=== PATIENT | female | born 1955 | race Caucasian/White ===

== ENCOUNTER → 2017-09-19 12:40 | Outpatient (CLI) | payer OTHER, SELFPAY | PROVIDERS: Family Provider Family Medicine; PCP Family Medicine; Visit Provider Family Medicine | DX: J02.9 Acute pharyngitis, unspecified (principal) | CPT/HCPCS: 87070 ==

== ENCOUNTER → 2017-09-28 15:55 | Outpatient (CLI) | payer OTHER, SELFPAY | PROVIDERS: Family Provider Family Medicine; PCP Family Medicine; Visit Provider Otolaryngology Otolaryngology/Facial Plastic Surgery | DX: J02.9 Acute pharyngitis, unspecified (principal) | CPT/HCPCS: 87070; 87077 ==

== ENCOUNTER → 2017-10-03 11:50 | Outpatient (CLI) | payer OTHER, SELFPAY ==
[2017-10-03 13:58] LABS: Absolute Lymphocyte Count 2.49 X10^3/ul (0.83-4.51); Absolute Neutrophil Count 3.7 X10^3/uL (2.0-7.7); Basophil# 0.05 X10^3/uL; Basophil% 0.6 % (0-1); Eosinophils% 4.9 % (0-5); Hematocrit 41.2 % (37-47); Hemoglobin 13.4 g/dl (12.0-15.0); Lymphocyte # 2.49 X10^3/ul (4.0); Lymphocyte % 30.4 % (19-41); Mean Corp Hgb Conc 32.5 g/gl (32-36); Mean Corpuscular Volume 92.4 fL (81-99); Mean Platelet Vol. 10.3 fl (6.2-12.0); Monocyte# 1.48 X10^3/uL; Monocyte% 18.1 % (0-10); Neutrophil # 3.73 X10^3/uL (2.7-7.7); Neutrophil % 45.6 % (47-70); Platelet Count 334 K/mm3 (150-450); RBC Distribution Width CV 14.1 % (11.6-14.6); RBC Distribution Width SD 46.4 fl (35.1-43.9); Red Blood Count 4.46 M/mm3 (4.2-5.4); White Blood Count 8.2 K/mm3 (4.4-11.0)
[2017-10-03 14:01] LABS: Erythrocyte Sedimentation Rate 14 mm/hr (0-30)
[2017-10-03 14:02] LABS: POSITIVE COUNT NO; POSITIVE DIFFERENTIAL NO; POSITIVE MORPHOLOGY NO
[2017-10-03 14:04] LABS: ALB/GLOB Ratio 0.8 RATIO (0.9-2.4); AST(SGOT) 20 U/L (15-37); Alanine Aminotransfer ALT/SGPT 33 U/L (13-56); Albumin, Serum 3.1 g/dL (3.2-5.0); Alkaline Phosphatase 110 U/L (45-117); Anion Gap 7 (5-15); BUN 9 mg/dL (7-18); BUN/Creat Ratio 9.4 RATIO (10-20); Calcium,Total 8.1 mg/dL (8.5-10.1); Chloride 106 mmol/L (98-107); Creatinine, Serum 0.95 mg/dL (0.55-1.02); EST Glomerular Filtration Rate 63 mL/min (>60); Est Glom Filt Rate - Afr Amer 76 mL/min (>60); Globulin 3.9 g/dL (2.2-4.2); Glucose 80 mg/dL (74-106); Potassium 3.5 mmol/L (3.5-5.1); Sodium Level 139 mmol/L (136-145)
== END ==
PROVIDERS: Visit Provider Family Medicine
DX: J02.9 Acute pharyngitis, unspecified (principal)
CPT/HCPCS: 36415; 80053; 85025; 85652

== ENCOUNTER → 2017-10-05 10:16 | Outpatient (CLI) | payer OTHER, SELFPAY ==
[2017-10-05 11:28] LABS: Erythrocyte Sedimentation Rate 6 mm/hr (0-30)
== END ==
PROVIDERS: Family Provider Family Medicine; PCP Family Medicine; Visit Provider Psychiatry & Neurology Neurology
DX: R51 Headache (principal)
CPT/HCPCS: 36415; 85652

== ENCOUNTER → 2017-10-13 07:18 | Outpatient (CLI) | payer OTHER, SELFPAY ==
--- NOTE | 2017-10-13 07:35 | MRI_ITS ---
STUDY: MRI BRAIN WITHOUT CONTRAST REASON FOR EXAM: Female, 62 years old. HEADACHES INCREASING FREQUENCY. HEADACHES INCREASING FREQUENCY. TECHNIQUE: Standardized multiplanar fat and water weighted pulse sequences were obtained. COMPARISON: None. FINDINGS: Normal size of the ventricles and extra-axial spaces for the patient's age. There are a limited number of small white matter hyperintensities, distributed throughout the deep white matter tracts of the cerebral hemispheres, consistent with mild chronic white matter ischemic changes. Normal bilateral basal ganglia. Normal thalami. There is no extra-axial fluid accumulation. Normal flow voids within the major intracranial circulation suggesting patency by spin echo criteria. Normal sella turcica, pituitary gland, infundibular stalk, optic chiasm and hypothalamus. Normal tectal plate and pineal gland. Normal midbrain, cammy and medulla. Normal cerebellum. Normal basal cisterns. Normal bilateral temporal bones. Normal bilateral internal auditory canals. No demonstrated orbital abnormality, within the constraints of a routine brain study. There is mucoperiosteal inflammatory disease of the paranasal sinuses consistent with moderate chronic sinusitis. Normal calvarium and skull base. Normal visualized soft tissue structures. Normal visualized upper cervical spine. MRI/Brain without Contrast IMPRESSION: No acute intracranial abnormality. Moderate chronic paranasal sinus disease. Electronically Signed: Abdoulaye Gibson MD at 8:18 EDT Tel , Service support ,
== END ==
PROVIDERS: Family Provider Family Medicine; PCP Family Medicine; Visit Provider Psychiatry & Neurology Neurology
DX: R51 Headache (principal)
CPT/HCPCS: 70551

== ENCOUNTER → 2017-11-25 11:40 | Outpatient (CLI) | payer OTHER, SELFPAY ==
[2017-11-25 14:39] LABS: Absolute Lymphocyte Count 2.93 X10^3/ul (0.83-4.51); Absolute Neutrophil Count 4.2 X10^3/uL (2.0-7.7); Basophil# 0.08 X10^3/uL; Basophil% 0.9 % (0-1); Eosinophil# 0.78 X10^3/uL; Eosinophils% 8.6 % (0-5); Hematocrit 38.9 % (37-47); Hemoglobin 12.9 g/dl (12.0-15.0); Lymphocyte # 2.93 X10^3/ul (4.0); Lymphocyte % 32.2 % (19-41); Mean Corp Hgb Conc 33.2 g/gl (32-36); Mean Corpuscular Hgb 30.4 pg (27.0-32.0); Mean Corpuscular Volume 91.7 fL (81-99); Mean Platelet Vol. 10.8 fl (6.2-12.0); Monocyte# 1.04 X10^3/uL; Monocyte% 11.4 % (0-10); Neutrophil # 4.24 X10^3/uL (2.7-7.7); Neutrophil % 46.7 % (47-70); Platelet Count 402 K/mm3 (150-450); RBC Distribution Width CV 13.4 % (11.6-14.6); RBC Distribution Width SD 44.2 fl (35.1-43.9); Red Blood Count 4.24 M/mm3 (4.2-5.4); White Blood Count 9.1 K/mm3 (4.4-11.0)
[2017-11-25 14:43] LABS: POSITIVE COUNT NO; POSITIVE DIFFERENTIAL NO; POSITIVE MORPHOLOGY NO
[2017-11-25 15:02] LABS: ALB/GLOB Ratio 0.9 RATIO (0.9-2.4); AST(SGOT) 30 U/L (15-37); Alanine Aminotransfer ALT/SGPT 30 U/L (13-56); Albumin, Serum 3.7 g/dL (3.2-5.0); Alkaline Phosphatase 115 U/L (45-117); Anion Gap 10 (5-15); BUN 19 mg/dL (7-18); BUN/Creat Ratio 15.3 RATIO (10-20); Calcium,Total 9.2 mg/dL (8.5-10.1); Chloride 101 mmol/L (98-107); Creatinine, Serum 1.24 mg/dL (0.55-1.02); EST Glomerular Filtration Rate 46 mL/min (>60); Est Glom Filt Rate - Afr Amer 56 mL/min (>60); Globulin 4.1 g/dL (2.2-4.2); Glucose 94 mg/dL (74-106); Potassium 3.5 mmol/L (3.5-5.1); Protein, Total 7.8 g/dL (6.4-8.2); Sodium Level 136 mmol/L (136-145); T4 Free Direct 1.14 ng/dL (0.76-1.46); Thyroid Stim Hormone (TSH) 1.96 uIU/mL (0.358-3.74)
== END ==
PROVIDERS: Family Provider Family Medicine; PCP Family Medicine; Visit Provider Family Medicine
DX: I10 Essential (primary) hypertension (principal); E03.9 Hypothyroidism, unspecified; G43.909 Migraine, unspecified, not intractable, without status migrainosus
CPT/HCPCS: 36415; 80053; 84439; 84443; 85025

== ENCOUNTER → 2017-12-06 08:21 | Outpatient (CLI) | payer OTHER, SELFPAY ==
[2017-12-08 16:09] LABS: Alternaria alternata <0.10 kU/L (Class 0); Bermuda Grass <0.10 kU/L (Class 0); Bluegrass, Kentucky <0.10 kU/L (Class 0); Cat Hair/Dander, Standard <0.10 kU/L (Class 0); D farinae Mite <0.10 kU/L (Class 0); D pteronyssinus <0.10 kU/L (Class 0); Dog Epithelia <0.10 kU/L (Class 0); Elm, American White <0.10 kU/L (Class 0); Oak, White <0.10 kU/L (Class 0); Plantain, English <0.10 kU/L (Class 0); Ragweed, Short/Common <0.10 kU/L (Class 0)
[2017-12-09 12:41] LABS: Mouse Urine <0.10 kU/L (Class 0)
[2017-12-09 20:08] LABS: Aspirgillus flavus Negative (Neg:<1:1); Aspirgillus fumigatus Negative (Neg:<1:1); Aspirgillus niger Negative (Neg:<1:1)
[2017-12-10 14:02] LABS: Immunoglobulin E 35 IU/mL (0-100)
== END ==
PROVIDERS: Family Provider Family Medicine; PCP Family Medicine; Visit Provider Nurse Practitioner Acute Care
DX: J45.40 Moderate persistent asthma, uncomplicated (principal)
CPT/HCPCS: 82785; 86003; 86606

== ENCOUNTER → 2018-02-01 15:45 | Outpatient (CLI) | payer OTHER, SELFPAY ==
[2018-02-01 18:02] LABS: Absolute Lymphocyte Count 3.14 X10^3/ul (0.83-4.51); Absolute Neutrophil Count 5.1 X10^3/uL (2.0-7.7); Basophil# 0.07 X10^3/uL; Basophil% 0.7 % (0-1); Eosinophil# 0.48 X10^3/uL; Eosinophils% 4.9 % (0-5); Hematocrit 38.2 % (37-47); Hemoglobin 12.7 g/dl (12.0-15.0); Lymphocyte # 3.14 X10^3/ul (4.0); Lymphocyte % 32.3 % (19-41); Mean Corp Hgb Conc 33.2 g/gl (32-36); Mean Corpuscular Hgb 30.8 pg (27.0-32.0); Mean Corpuscular Volume 92.7 fL (81-99); Mean Platelet Vol. 10.6 fl (6.2-12.0); Monocyte% 9.3 % (0-10); Neutrophil # 5.11 X10^3/uL (2.7-7.7); Neutrophil % 52.6 % (47-70); POSITIVE COUNT NO; POSITIVE DIFFERENTIAL NO; POSITIVE MORPHOLOGY NO; Platelet Count 416 K/mm3 (150-450); RBC Distribution Width CV 12.7 % (11.6-14.6); RBC Distribution Width SD 41.9 fl (35.1-43.9); Red Blood Count 4.12 M/mm3 (4.2-5.4); White Blood Count 9.7 K/mm3 (4.4-11.0)
[2018-02-01 19:08] LABS: AST(SGOT) 26 U/L (15-37); Alanine Aminotransfer ALT/SGPT 31 U/L (13-56); Alkaline Phosphatase 122 U/L (45-117); Anion Gap 8 (5-15); BUN 17 mg/dL (7-18); BUN/Creat Ratio 15.9 RATIO (10-20); Calcium,Total 9.5 mg/dL (8.5-10.1); Chloride 101 mmol/L (98-107); Creatinine, Serum 1.07 mg/dL (0.55-1.02); EST Glomerular Filtration Rate 55 mL/min (>60); Est Glom Filt Rate - Afr Amer 66 mL/min (>60); Free T3 2.2 pg/mL (2.18-3.98); Globulin 3.9 g/dL (2.2-4.2); Glucose 87 mg/dL (74-106); Potassium 3.5 mmol/L (3.5-5.1); Protein, Total 7.9 g/dL (6.4-8.2); Sodium Level 137 mmol/L (136-145); Thyroid Stim Hormone (TSH) 2.23 uIU/mL (0.358-3.74)
[2018-02-07 14:23] LABS: T4 Free Direct 1.13 ng/dL (0.76-1.46)
== END ==
PROVIDERS: Family Provider Family Medicine; PCP Family Medicine; Visit Provider Family Medicine
DX: I10 Essential (primary) hypertension (principal); E03.9 Hypothyroidism, unspecified; G43.909 Migraine, unspecified, not intractable, without status migrainosus
CPT/HCPCS: 36415; 80053; 84439; 84443; 84481; 85025

== ENCOUNTER → 2018-05-22 08:05 | Outpatient (CLI) | payer OTHER, SELFPAY ==
[2018-05-22 11:55] LABS: Anion Gap 12 (5-15); BUN 11 mg/dL (7-18); BUN/Creat Ratio 11.4 RATIO (10-20); Calcium,Total 9.3 mg/dL (8.5-10.1); Chloride 101 mmol/L (98-107); Creatinine, Serum 0.97 mg/dL (0.55-1.02); EST Glomerular Filtration Rate 61 mL/min (>60); Est Glom Filt Rate - Afr Amer 74 mL/min (>60); Glucose 83 mg/dL (74-106); Potassium 3.2 mmol/L (3.5-5.1); Sodium Level 138 mmol/L (136-145); T4 Free Direct 1.64 ng/dL (0.76-1.46); Thyroid Stim Hormone (TSH) 1.59 uIU/mL (0.358-3.74)
== END ==
PROVIDERS: Family Provider Family Medicine; PCP Family Medicine; Visit Provider Family Medicine
DX: I10 Essential (primary) hypertension (principal)
CPT/HCPCS: 36415; 80048; 84439; 84443

== ENCOUNTER → 2018-06-19 11:42 | Outpatient (CLI) | payer OTHER, SELFPAY ==
[2018-04-05 14:13] VITALS: BMI 35.9
[2018-06-19 13:50] LABS: Free T3 2.6 pg/mL (2.18-3.98); T4 Total, Thyroxin 11.7 ug/dL (4.8-13.9); Thyroid Stim Hormone (TSH) 0.16 uIU/mL (0.358-3.74)
== END ==
PROVIDERS: Family Provider Family Medicine; PCP Family Medicine; Visit Provider Family Medicine
DX: E03.9 Hypothyroidism, unspecified (principal)
CPT/HCPCS: 36415; 84436; 84443; 84481

== ENCOUNTER → 2018-10-19 | Outpatient (CLI) | payer OTHER, SELFPAY ==
[2018-04-05 14:13] VITALS: BMI 35.9
[2018-10-19 10:50] LABS: Anion Gap 6 (5-15); BUN 18 mg/dL (7-18); BUN/Creat Ratio 23.1 RATIO (10-20); Calcium,Total 9.6 mg/dL (8.5-10.1); Chloride 102 mmol/L (98-107); Creatinine, Serum 0.78 mg/dL (0.55-1.02); EST Glomerular Filtration Rate 79 mL/min (>60); Est Glom Filt Rate - Afr Amer 96 mL/min (>60); Free T3 2.5 pg/mL (2.18-3.98); Glucose 90 mg/dL (74-106); Magnesium 2.2 mg/dL (1.6-2.6); Potassium 3.9 mmol/L (3.5-5.1); Sodium Level 138 mmol/L (136-145); T4 Free Direct 1.08 ng/dL (0.76-1.46); Thyroid Stim Hormone (TSH) 1.59 uIU/mL (0.358-3.74)
== END | disposition home or self-care (01) ==
LOC: MFPLAB 09:11
PROVIDERS: Family Provider Family Medicine; PCP Family Medicine; Referring Provider Family Medicine; Visit Provider Family Medicine
DX: E03.9 Hypothyroidism, unspecified (principal); E87.6 Hypokalemia
CPT/HCPCS: 36415; 80048; 83735; 84439; 84443; 84481

== ENCOUNTER 2018-10-24 05:58 | Day surgery (SDC) | payer OTHER, SELFPAY ==
[2018-04-05 14:13] VITALS: BMI 35.9
[2018-10-19 14:45] LABS: Hemoglobin 12.3 g/dl (12.0-15.0); Mean Corp Hgb Conc 33.2 g/gl (32-36); Mean Corpuscular Hgb 31.2 pg (27.0-32.0); Mean Corpuscular Volume 93.9 fL (81-99); Mean Platelet Vol. 10.6 fl (6.2-12.0); Platelet Count 407 K/mm3 (150-450); RBC Distribution Width CV 13.9 % (11.6-14.6); RBC Distribution Width SD 47.7 fl (35.1-43.9); Red Blood Count 3.94 M/mm3 (4.2-5.4); White Blood Count 9.3 K/mm3 (4.4-11.0)
--- NOTE | 2018-10-19 14:49 | EKG12_ITS ---
Test Reason : PREOP Blood Pressure : / mmHG Vent. Rate : 079 BPM Atrial Rate : 079 BPM P-R Int : 128 ms QRS Dur : 086 ms QT Int : 428 ms P-R-T Axes : 061 042 040 degrees QTc Int : 490 ms Normal sinus rhythm Prolonged QT Abnormal ECG Confirmed by CHANTEL SALTER, YURI ([id number]), film editor supervisor EDWARD GAGNON ([id number]) on 10/23/2018 4:33:37 PM Referred By: Shyann Schulz Confirmed By:YURI GOLDEN MD
[2018-10-19 14:54] LABS: Scan Indicated on CBC? Y/N NO
[2018-10-24] VITALS (8 sets, daily range): BP systolic 84–132; BP diastolic 55–70; PULSE 75–90; RESP 16–18; TEMP 36.7–36.9; O2SAT 96–100; BMI 26.1
--- NOTE | 2018-10-24 07:35 | RAD_ITS ---
STUDY: X-RAY - LEFT FOOT CLINICAL: Female, 63 years old. Arthroplasty of the fourth and fifth toes. TECHNIQUE: 4 intraoperative view(s) of the foot. COMPARISON: None. FINDINGS: Intraoperative images shows evidence of pinning of the fourth toe. RAD/Foot min 3 Views IMPRESSION: Pinning of the fourth toe. Electronically Signed: Jose Antonio Kumar, at 14:06 EDT , Service support ,
[2018-10-24] MEDS: Bupivacaine Mpf 0.5% 30 ML VIAL (07:48)
--- NOTE | 2018-10-24 08:43 | RAD_ITS ---
STUDY: X-RAY - LEFT FOOT CLINICAL: Female, 63 years old. Postop TECHNIQUE: 3 view(s) of the foot. COMPARISON: None. FINDINGS: Normal talus, calcaneus, and tarsal bones. Normal visualized subtalar, talonavicular, calcaneocuboid, tarsal and tarsometatarsal articulations. Normal metatarsi. Normal metatarsophalangeal joint of the great toe. Normal tibial and fibular sesamoid bones. Normal interphalangeal joint of the great toe. Normal phalanges of the great toe. Normal second through fifth metatarsophalangeal joints. Status post pinning of the fourth toe. The soft tissue structures are unremarkable. RAD/Foot min 3 Views IMPRESSION: Status post pinning of the fourth toe. Electronically Signed: Taye Burgos DO at 23:55 EDT Tel [phone], Service support ,
--- NOTE | 2018-10-24 08:48 | DCINST_ITS ---
Discharge Activity: May Not Drive, May not drive while taking narcotic pain medications., May Not Shower, Use Walker, Use Crutches Weight Bearing Status: Partial weight bearing - heel weightbearing in surgical shoe, crutches/walker as neededfor balance Keep extremity elevated above heart level: Operative Extremity Call your doctor if your incision/area has: Sudden Increased Bleeding Call your doctor if you observe: Fever of 101 or Higher, Shortness of breath, Dizziness, Chest pain, Increased palpitations (irregular heartbeat), Calf discomfort, Uncontrolled pain Cleanse incision/area with: Keep Dressing Clean & Dry Allergies/Adverse Reactions: Allergies clarithromycin [From Biaxin] Allergy (Verified 10/19/18 13:09) Unknown Penicillins [PCN] Allergy (Verified 10/19/18 13:09) Unknown sulfacetamide Allergy (Verified 10/19/18 13:09) Unknown cefuroxime [From Ceftin] Adverse Reaction (Mild, Verified 10/19/18 13:09) Nausea & Diarrhea Medications to take at Discharge Ibuprofen 200 mg PO DAILY PRN 05/27/17 Losartan Potassium 25 mg PO DAILY 05/27/17 Montelukast [Singulair] 10 mg PO DAILY 05/27/17 amitriptyline 25 mg tablet 25 mg PO QHS 30 Days #30 tab 11/08/17 bisoprolol fumarate 5 mg tablet 5 mg PO QDAY 30 Days #30 tab 11/08/17 levothyroxine 100 mcg tablet 100 mcg PO QDAY 90 Days #90 tab 11/08/17 liothyronine 5 mcg tablet 5 mcg PO QDAY 11/08/17 magnesium oxide 400 mg (241.3 mg magnesium) tablet 400 mg PO DAILY 11/08/17 Fluticasone 0.05% [Flonase Nasal [place]] 2 spray INTRANASAL QDAY PRN 10/19/18 Hydrochlorothiazide [Hctz] 12.5 mg PO QDAY 10/19/18 Acetaminophen/Codeine #3 [Tylenol#3] 1 tab PO Q4H PRN PRN 7 Days #30 tab 10/24/18 The following prescriptions were given: Acetaminophen/Codeine #3 [Tylenol#3] 1 tab PO Q4H PRN PRN 7 Days #30 tab PRN Reason: Pain Orders to be completed after discharge: 12 Lead EKG [[facility]] Time Frame: 10/19/18, Facility: [facility], Location: Cardiovascular Services CBC-Complete Blood Cnt No Diff Time Frame: 10/19/18, Location: Laboratory Primary Care Physician: Elias Epps MD [Primary Care Provider] - Test Results: Test results from this visit will be discussed in further detail at your follow- up appointment, if applicable. Please Follow Up With: Shyann Schulz DPM - Please follow up at your previously scheduled post operative appointment. Proposed Discharge Date: 10/24/18
--- NOTE | 2018-10-24 08:48 | PCM.OPRPT ---
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 Patient has failed outpatient conservative therapies and presents today for surgical intervention. All risks, complications, and alternatives were discussed with the patient, and the patient signed an informed consent. No guarantees were given. Procedure: On 10/24/2018, Melissa Burns was visually and verbally identified in the preoperative holding area. The consent form was again reviewed with the patient, as were all risks, complications, and alternatives and the patient wished to proceed with the proposed surgery. The left foot was marked as the correct operative extremity. The patient was brought to the operating room and placed on the operating room table in the normal SUPINE position. After induction by anesthesia, a surgical time out was performed and all present were in agreement. a pneumatic midcalf tourniquet was then placed. At this time the left lower extremity was prepped and draped in the usual sterile fashion. after exsanguination with an esmarch the tourniquet was inflated to 250 mmHg. a total of 16 cc of 0.5% marcaine plain was injected at the surgical sites. At this time attention was directed to the left 4th digit, a longitudinal incision was made over the PIPJ joint using a #15 blade.The incision was bluntly carried deep through the subcutaneous tissues with careful attention paid to all bleeders, which were clamped and tied or bovied as necessary. All vital neurovascular structures were retracted. The extensor tendon was identified and a transverse incision was made just distal to the PIPJ. Using bone cutter the articular surface of the 4th proximal phalanx was resected in a table top fashion. The cartilage of the base of the middle phalanx was then removed using ronguers. The incision was flushed with normal sterile saline. A 0.045 k wire was then placed retrograde from the base of the middle phalanx. The PIPJ was aligned and the k wire was advanced proximally past the PIPJ. Intraoperative fluoroscopy was used to confirm positioning and placement. Attention was then turned to the 5th digit, using a fresh #15 blade an oblique ellipse was made from qwosmft-mksyzhss-rksusnu to rgmafk-[id number]-vtrcoy over the PIPJ. The incision was bluntly carried deep through the subcutaneous tissues with careful attention paid to all bleeders, which were clamped and tied or bovied as necessary. All vital neurovascular structures were retracted. The extensor tendon was identified and a transverse incision was made just distal to the PIPJ. Using bone cutter the articular surface of the 5th proximal phalanx was resected in a table top fashion. A rasp was used to contour the lateral border of the base of the middle phalanx. The incision was flushed with copious amounts of normal sterile saline. The extensor tendons of each digit were re-approximated with sutured with 3.0 vicryl, subcutaneous tissue was closed with 3.0 vicryl and skin was closed with 3.0 prolene. adaptic and dry sterile dressings were applied to the incisions. casting padding and light compressive gus were applied with a surgical shoe. A pin cap was placed over the k wire end. Total tourniquet time was 40 minutes with immediate capillary refill noted to all digits upon deflation. The patient tolerated the procedure and anesthesia well. The patient was then transported to the postanesthesia care unit by a member of the anesthesia team and myself with all vital signs stable and neurovascular status of the left lower extremity equal to pre-operative levels. At the end of the case all sponge, needle and instrument counts were found to be correct. Grafts/Implants Used: 0.045 k wire - Complications none - Admit VTE Documentation VTE Present on Admission: No VTE Mechan Device Prophylaxis: SCD's, Knee High OLIVE Hose VTE Pharm Prophylaxis ordered?: Yes
== END 2018-10-24 10:05 | disposition home or self-care (01) ==
LOC: SDC 05:58 → AC 05:59
PROVIDERS: Family Provider Family Medicine; PCP Family Medicine; Referring Provider Podiatrist Foot & Ankle Surgery; Visit Provider Podiatrist Foot & Ankle Surgery
PROC: (CPT 26860; principal; 2018-10-24 07:15)
DX: M20.5X2 Other deformities of toe(s) (acquired), left foot (principal); L84 Corns and callosities; I10 Essential (primary) hypertension; E07.9 Disorder of thyroid, unspecified; J45.909 Unspecified asthma, uncomplicated; M19.90 Unspecified osteoarthritis, unspecified site; Z79.899 Other long term (current) drug therapy
CPT/HCPCS: 01480; 28285 ×2; 73630; 76000; 85027; 93005; J7120

== ENCOUNTER → 2019-04-10 | Outpatient (CLI) | payer OTHER, SELFPAY ==
[2018-11-09 14:38] VITALS: BMI 26.4
[2019-04-10 12:37] LABS: Absolute Lymphocyte Count 2.73 X10^3/uL (0.83-4.51); Absolute Neutrophil Count 3.9 X10^3/uL (2.0-7.7); Basophil% 1.2 % (0-1); Eosinophil# 0.91 X10^3/uL; Eosinophils% 10.9 % (0-5); Hematocrit 41.6 % (37-47); Hemoglobin 13.3 g/dL (12.0-15.0); Lymphocyte # 2.73 X10^3/ul (4.0); Lymphocyte % 32.8 % (19-41); Mean Corpuscular Hgb 30.3 pg (27.0-32.0); Mean Corpuscular Volume 94.8 fL (81-99); Mean Platelet Vol. 10.4 fl (6.2-12.0); Monocyte% 8.4 % (0-10); NRBC Flagged by Analyzer 0 % (0-5); Neutrophil # 3.88 X10^3/uL (2.7-7.7); Neutrophil % 46.6 % (47-70); Platelet Count 387 K/mm3 (150-450); RBC Distribution Width CV 12.8 % (11.6-14.6); RBC Distribution Width SD 44.4 fl (35.1-43.9); Red Blood Count 4.39 M/mm3 (4.2-5.4); White Blood Count 8.3 K/mm3 (4.4-11.0)
[2019-04-10 12:53] LABS: Vitamin D,25 Hydroxy 12.7 ng/mL (29.95-100.01)
[2019-04-10 12:57] LABS: ALB/GLOB Ratio 1.1 RATIO (0.9-2.4); AST(SGOT) 26 U/L (15-37); Alanine Aminotransfer ALT/SGPT 32 U/L (13-56); Albumin, Serum 3.8 g/dL (3.2-5.0); Alkaline Phosphatase 111 U/L (45-117); Anion Gap 8 (5-15); BUN 12 mg/dL (7-18); BUN/Creat Ratio 12.7 RATIO (10-20); Calcium,Total 9.4 mg/dL (8.5-10.1); Chloride 104 mmol/L (98-107); Cholesterol 191 mg/dL (200); Creatinine, Serum 0.94 mg/dL (0.55-1.02); EST Glomerular Filtration Rate 63 mL/min (>60); Est Glom Filt Rate - Afr Amer 77 mL/min (>60); Globulin 3.5 g/dL (2.2-4.2); Glucose 79 mg/dL (74-106); High Density Lipoprotein 73 mg/dL; Potassium 3.9 mmol/L (3.5-5.1); Protein, Total 7.3 g/dL (6.4-8.2); Sodium Level 141 mmol/L (136-145); T4 Free Direct 1.13 ng/dL (0.76-1.46); Thyroid Stim Hormone (TSH) 0.87 uIU/mL (0.358-3.74); Triglycerides 53 mg/dL; Very Low Density Lipoprotein 11 mg/dL (5-40)
== END | disposition home or self-care (01) ==
LOC: MFPLAB 09:43
PROVIDERS: Family Provider Family Medicine; PCP Family Medicine; Referring Provider Family Medicine; Visit Provider Family Medicine
DX: E03.9 Hypothyroidism, unspecified (principal); R00.0 Tachycardia, unspecified; I10 Essential (primary) hypertension; Z13.220 Encounter for screening for lipoid disorders
CPT/HCPCS: 36415; 80053; 80061; 82306; 84439; 84443; 85025

== ENCOUNTER → 2019-06-13 11:22 | Outpatient (CLI) | payer OTHER, SELFPAY ==
[2018-11-09 14:38] VITALS: BMI 26.4
--- NOTE | 2019-06-13 11:25 | BI_ITS ---
MAMMOGRAPHY - BILATERAL SCREENING REASON FOR EXAM: Female, 64 years old. Routine annual screening examination. PERTINENT HISTORY: Non-contributory. TECHNIQUE: Digital bilateral breast imelda (3D mammographic acquisition) in the CC and MLO projections. 2-D mediolateral oblique (MLO) and craniocaudad (CC) views of both breasts were obtained. CAD: Full Field Digital Mammography with Computer Added Detection was performed. COMPARISON: Comparison is made with prior study dated June 24, 2015 and February 26, 2014. FINDINGS: Breast Composition: The breasts are heterogeneously dense, which may obscure small masses. There are no dominant masses or suspicious calcifications. No other significant abnormalities are identified. There has been no significant change since the prior study. BI/SCREEN MAMM (CAD) W/IMELDA BILAT IMPRESSION: Stable bilateral screening mammogram. Yearly follow-up mammogram recommended. (A) ASSESSMENT CATEGORY: BIRADS Category 1: Negative. A letter regarding these results will be sent to the patient by the facility within 30 days. Approximately 10% of breast cancers are not detected by mammography. A normal mammogram should not delay biopsy of a clinically suspicious abnormality. [id number] Electronically Signed: Jose Antonio Kumar, at 12:31 EST , Service support ,
--- NOTE | 2019-06-13 11:26 | BD_ITS ---
STUDY: DUAL ENERGY X-RAY ABSORPTIOMETRY / DXA REASON FOR EXAM: Female, 64 years old. The patient is postmenopausal. Loss of height. TECHNIQUE: Bone Mineral Density (BMD) measurements of lumbar spine and bilateral hips were obtained. COMPARISON: Comparison is made with prior study dated June 24, 2015. FINDINGS: Lumbar Spine (L1-L4): g/cm2 (1.020) / T-score (-1.2) / Z-score (0.4) Findings are suggestive of osteopenia with a low fracture risk. Left Femur Total: g/cm2 (0.887) / T-score (-1.0) / Z-score (0.3) Left Femoral Neck: g/cm2 (0.883) / T-score (-1.4) / Z-score (0.1) Right Femur Total: g/cm2 (0.904) / T-score (-0.8) / Z-score (0.4) Right Femoral Neck: g/cm2 (0.864) / T-score (-1.3) / Z-score (0.2) The T-Scores on the most recent prior examination were: Lumbar Spine (L1-L4): There has been worsening of bone density since the previous examination. Left Femur Total: which represents a worsening of 4.6%. Right Femur Total: which represents a worsening of 3.1%. BD/Dexa Bone Density Study IMPRESSION: The patient is considered osteopenic as outlined below according to [place] Organization (WHO) criteria with a low fracture risk. There has been worsening of bone density since the previous examination. Reference Information: The T-score is the number of standard deviations above or below the standard which is normal for young adults at their peak bone mineral density. The World Health Organization (WHO) interprets the T-scores as follows: Above -1 Normal bone density Between -1 and -2.5 Osteopenia Equal to / or below -2.5 Osteoporosis As a practical clinical guideline, osteopenia may be graded as follows: Mild -1 through -1.5 Moderate -1.6 through -2.0 Severe -2.1 through -2.4 The Z-score is the number of standard deviations above or below age-matched controls. A Z-score of less than -1.5 would be considered abnormal. References: 1. NIH Osteoporosis and Related Bone Diseases http://www.osteo.org 2. International Society for Clinical Densitometry http://www.iscd.org 3. National Osteoporosis Foundation http://www.nof.org Electronically Signed: Jose Antonio Kumar, at 15:51 EST , Service support ,
== END ==
PROVIDERS: Family Provider Family Medicine; PCP Family Medicine; Referring Provider Family Medicine; Visit Provider Family Medicine
DX: Z12.31 Encounter for screening mammogram for malignant neoplasm of breast (principal); Z78.0 Asymptomatic menopausal state
CPT/HCPCS: 77063; 77067; 77080

== ENCOUNTER 2019-06-26 06:02 | Day surgery (SDC) | payer OTHER, SELFPAY ==
[2018-11-09 14:38] VITALS: BMI 26.4
[2019-06-26] VITALS (11 sets, daily range): BP systolic 79–126; BP diastolic 50–70; PULSE 89–102; RESP 16–18; TEMP 37.2–37.6; O2SAT 92–100; BMI 28.9
--- NOTE | 2019-06-26 | COLBX_PTH ---
PATIENT: BRIAN FOSTER LOC: EN U#:[id number] AGE/SX: 64/F ROOM: RE06/26/[address]: Dr. Malik Hernandez MD : 1955 BED: DIS: 06/26/2019 SPEC #: [id number] RECD: 06/26/19 13:19 STATUS: LINDA REEvette #: [id number] CORBIN: 06/26/19 00:[address]: Malik Hernandez DEPT: SURGICAL PATHOLOGY RECD BY: Giancarlo Espino ENTERED: 06/26/19 13:19 SP TYPE: COLON BX OTHR DR: Dr. Elias Epps MD Tissues: Rectum, NOS Procedures: Surgery Specimen Level IV HEADER OPERATION: Colonoscopy - open access (MOD) PRE-OP DIAGNOSIS: Screening TISSUE SUBMITTED: Rectum polyp MICROSCOPIC DIAGNOSIS Rectal polyp, biopsy: Tubular adenoma. AM:gabriel 06/27/19 MICROSCOPIC DESCRIPTION Slides are reviewed. GROSS DESCRIPTION Received in fixative is one container labeled with the patient's name and designated rectum polyp. The specimen consists of one irregular fragment of jeff soft tissue that measures 0.4 x 0.2 x 0.1 cm. A few fragments of fecal material are also noted. The entire specimen is submitted in one cassette. / SJ:gabriel 06/26/19 TC: 5 CPT: 92469
[2019-06-26] MEDS: Lactated Ringers 1,000 ML 100 ML IV (06:37)
--- NOTE | 2019-06-26 06:49 | PCM.HP.STD ---
Problem List (1) Screening for intestinal cancer Status: Acute History of Present Illness Date of Admission: 06/26/19 The patient is a 64 year old F who presents for screening colonoscopy. She denies abdominal pain or bright red blood per rectum or melena. She otherwise states that she enjoys good health. No history of DVT. No blood thinners. Past Medical History Past Medical History (Chronic Problems): Chronic Problems (Last Reviewed 04/05/18 @ 14:26 by Xena Nowak NP-C) Thyroid dysfunction (Chronic) HTN (hypertension) (Chronic) Migraine (Chronic) Seasonal allergies (Chronic) Asthma (Chronic) Cardiovascular stress test abnormal (Chronic) Medical History: Medical History (Last Reviewed 04/05/18 @ 14:26 by Xena Nowak NP-C) Pneumonia (Acute) J18.9 Bronchitis (Acute) J40 Thyroid dysfunction (Chronic) E07.9 HTN (hypertension) (Chronic) I10 Migraine (Chronic) G43.909 Non-productive cough (Acute) R05 Sinusitis (Acute) J32.9 Seasonal allergies (Chronic) J30.2 Asthma (Chronic) J45.909 Tachycardia (Acute) R00.0 Cardiovascular stress test abnormal (Chronic) R94.39 Dyspnea on exertion (Resolved) R06.09 Allergies amoxicillin [From Augmentin] Allergy (Verified 06/22/19 13:49) Unknown clarithromycin [From Biaxin] Allergy (Verified 10/19/18 13:09) Unknown clavulanic acid [From Augmentin] Allergy (Verified 06/22/19 13:49) Unknown Sulfa (Sulfonamide Antibiotics) Allergy (Verified 06/22/19 13:51) Hives sulfacetamide Allergy (Verified 10/19/18 13:09) Unknown cefuroxime [From Ceftin] Adverse Reaction (Mild, Verified 10/19/18 13:09) Nausea & Diarrhea Penicillins [PCN] Adverse Reaction (Verified 06/22/19 13:50) Nausea/Vom/Diarrhea Home Medications: Ambulatory Orders Medication Instructions Recorded Montelukast [Singulair] 10 mg PO DAILY 05/27/17 amitriptyline 25 mg tablet 25 mg PO QHS 30 Days #30 tab 11/08/17 levothyroxine 100 mcg tablet 100 mcg PO QDAY 90 Days #90 tab 11/08/17 magnesium oxide 400 mg (241.3 mg 400 mg PO DAILY 11/08/17 magnesium) tablet Fluticasone 0.05% [Flonase Nasal 2 spray INTRANASAL QDAY PRN 10/19/18 [place]] Hydrochlorothiazide [Hctz] 12.5 mg PO QDAY 10/19/18 Surgical History: Surgical History (Last Reviewed 04/05/18 @ 14:26 by Xena Nowak NP-C) sinuplasty (Resolved) H/O tubal ligation (Resolved) Z98.51 bunion surgery (Resolved) History of carpal tunnel surgery Z92.89 History of left heart catheterization Z98.890 [facility]: 05/30/2017 Smoking Status: Never smoker Tobacco Use: Non-smoker Review of Systems HEENT: Denies: Difficulty Swallowing Cardiovascular: Denies: Chest Pain Respiratory: Denies: Shortness of Breath Gastrointestinal: Denies: Abdominal Pain, Melena Endocrine: Denies: Change in Body Habitus VTE Information - Inpt Only VTE Present on Admission: No Patient Problems: Active and Suspected Problems (Last Reviewed 04/05/18 @ 14:26 by Xena Nowak NP-Alireza) Screening for intestinal cancer (Acute) - Physical Exam Vitals/I&O's: Vital Signs Temp Pulse Resp BP Pulse Ox 99.6 F H 102 H 16 123/57 H 95 06/26/19 06:31 06/26/19 06:31 06/26/19 06:31 06/26/19 06:31 06/26/19 06:31 Oxygen Delivery Method Room Air Weight: 163 lb 5.8 oz Body Mass Index (BMI) 28.9 General: Alert, Oriented x3, Cooperative, No apparent distress Oral: Moist Mucosa Neck: Supple Lungs: Clear to auscultation, Normal air movement Cardiovascular: Regular rate, Regular Rhythm Abdomen: Bowel Sounds Present, Non-Distended Extremities: No Calf Tenderness Psych/Mental Status: Normal Affect Current Medications Lactated Ringer's () 1,000 mls @ 100 mls/hr IV .Q10H KOLBY Last Admin: 06/26/19 06:37 Dose: 100 mls/hr Documented by: Assessment/Plan All Active Problems (Last Reviewed 04/05/18 @ 14:26 by Xena Nowak NP-C) Screening for intestinal cancer (Acute) PND (post-nasal drip) (Acute) sinuplasty (Resolved) H/O tubal ligation (Resolved) bunion surgery (Resolved) Pneumonia (Acute) Bronchitis (Acute) Non-productive cough (Acute) Sinusitis (Acute) Tachycardia (Acute) Dyspnea on exertion (Resolved) Plan to proceed with a screening colonoscopy today with possible biopsy or polypectomy is indicated. The patient is aware of the technique, benefits, risks, alternatives. She has had an opportunity to ask and have questions answered. She presents via our open access program today. She has not had a previous colonoscopy since age 48 Malik Hernandez M.D., F.A.C.S.
--- NOTE | 2019-06-26 07:29 | OP.COLON_ITS ---
Patient Name: Melissa Burns Procedure Date: 06/26/2019 6:50 AM Date of : 1955 Age: 64 Procedure: Colonoscopy Indications: Screening for colorectal malignant neoplasm Providers: Malik Hernandez MD Referring MD: Elias Epps Medicines: Midazolam 4 mg IV, Meperidine 100 mg IV Patient Profile: Last Colonoscopy: more than 10 years ago. Complications: No immediate complications. Procedure: Pre-Anesthesia Assessment: - Prior to the procedure, a History and Physical was performed, and patient medications and allergies were reviewed. The patient's tolerance of previous anesthesia was also reviewed. The risks and benefits of the procedure and the sedation options and risks were discussed with the patient. All questions were answered, and informed consent was obtained. Prior Anticoagulants: The patient has taken no previous anticoagulant or antiplatelet agents. ASA Grade Assessment: II - A patient with mild systemic disease. After reviewing the risks and benefits, the patient was deemed in satisfactory condition to undergo the procedure. After I obtained informed consent, the scope was passed under direct vision. Throughout the procedure, the patient's blood pressure, pulse, and oxygen saturations were monitored continuously. The colonoscope was introduced through the anus and advanced to the cecum, identified by appendiceal orifice and ileocecal valve. The colonoscopy was performed without difficulty. The patient tolerated the procedure well. The quality of the bowel preparation was adequate to identify polyps. The ileocecal valve and the appendiceal orifice were photographed. Moderate Sedation: Moderate (conscious) sedation was personally administered by the endoscopist. The following parameters were monitored: oxygen saturation, heart rate, blood pressure, and response to care. Total physician intraservice time was 15 minutes. Scope In: 7:05:02 AM Scope Withdrawal Time 0 hours 8 minutes 56 seconds Scope Out: 7:20:23 AM Total Procedure Duration Time 0 hours 15 minutes 21 seconds Findings: Hemorrhoids were found on perianal exam. A 6 mm polyp was found in the rectum. The polyp was sessile. The polyp was removed with a cold snare. Resection and retrieval were complete. Multiple diverticula were found in the sigmoid colon. The exam was otherwise without abnormality. Impression: - Hemorrhoids found on perianal exam. - One 6 mm polyp in the rectum, removed with a cold snare. Resected and retrieved. - Diverticulosis in the sigmoid colon. - The examination was otherwise normal. Recommendation: - Discharge patient to home. - Resume previous diet. - Continue present medications. - Telephone my office for pathology results in 1 week. - Repeat colonoscopy is recommended for surveillance 5 years. The colonoscopy date will be determined after pathology results from today's exam become available for review. Procedure Code(s): --- Professional --- 48980, Colonoscopy, flexible; with removal of tumor(s), polyp(s), or other lesion(s) by snare technique 31572, 59, Moderate sedation services provided by the same physician or other qualified health administrator health care facility performing the diagnostic or therapeutic service that the sedation supports, requiring the presence of an independent trained observer to assist in the monitoring of the patient's level of consciousness and physiological status; initial 15 minutes of intraservice time, patient age 5 years or older Diagnosis Code(s): --- Professional --- Z12.11, Encounter for screening for malignant neoplasm of colon K64.9, Unspecified hemorrhoids K62.1, Rectal polyp K57.30, Diverticulosis of large intestine without perforation or abscess without bleeding CPT copyright 2017 [place]. All rights reserved. The codes documented in this report are preliminary and upon cafeteria or lunchroom checker review may be revised to meet current compliance requirements. Malik Hernandez MD 06/26/2019 7:29:22 AM This report has been signed electronically. Number of Addenda: 0 Note Initiated On: 06/26/2019 6:50 AM
== END 2019-06-26 08:16 | disposition home or self-care (01) ==
LOC: EN 06:03 → AC 06:04
PROVIDERS: Family Provider Family Medicine; PCP Family Medicine; Referring Provider Family Medicine; Visit Provider Surgery
PROC: 0DJD8ZZ Inspection of Lower Intestinal Tract, Via Natural or Artificial Opening Endoscopic (ICD-10-PCS; CPT 45378; principal; 2019-06-26 06:55)
DX: Z12.11 Encounter for screening for malignant neoplasm of colon (principal); D12.8 Benign neoplasm of rectum; E07.9 Disorder of thyroid, unspecified; I10 Essential (primary) hypertension; J45.909 Unspecified asthma, uncomplicated; K64.9 Unspecified hemorrhoids; K57.30 Diverticulosis of large intestine without perforation or abscess without bleeding; Z79.899 Other long term (current) drug therapy
CPT/HCPCS: 45385; 88305; 99152; 99153; J7120

== ENCOUNTER → 2019-06-29 09:47 | Outpatient (CLI) | payer OTHER, SELFPAY ==
[2019-06-26 06:31] VITALS: BMI 28.9
--- NOTE | 2019-06-29 09:51 | RAD_ITS ---
STUDY: X-RAY CHEST REASON FOR EXAM: Female, 64 years old. COUGH, SOB, RIGHT LOWER LOBE PNEUMONIA TECHNIQUE: The lateral COMPARISON: October 27, 2016. FINDINGS: There is focal infiltrate in the right lower lobe. Left lung is clear. There is no demonstrated pleural abnormality. Normal size heart. Normal mediastinum and caryn. Normal visualized pulmonary arteries. Normal visualized aortic arch and descending thoracic aorta. Dorsal spine demonstrates mild degenerative change. Normal visualized ribs, clavicles, and shoulders. There is no demonstrated abnormality of the visualized soft tissue structures of the upper abdomen. RAD/Chest PA and Lateral IMPRESSION: Right lower lobe pneumonic infiltrate. Electronically Signed: Alfredito Duarte MD at 22:57 EST , Service support ,
--- NOTE | 2019-06-29 09:51 | RAD_ITS ---
STUDY: X-RAY - PARANASAL SINUSES REASON FOR EXAM: Female, 64 years old. CHRONIC SINUSITIS TECHNIQUE: 3 view(s) of the paranasal sinuses were obtained. COMPARISON: None. FINDINGS: Normal visualized frontal, maxillary, ethmoidal and sphenoid sinuses. Normal visualized facial bones. The soft tissue structures are unremarkable. RAD/Sinuses min 3 Views IMPRESSION: Normal x-rays of the paranasal sinuses. Electronically Signed: Alfredito Duarte MD at 22:10 EST , Service support ,
[2019-06-29 12:08] LABS: Erythrocyte Sedimentation Rate 23 mm/hr (0-30)
[2019-06-29 12:25] LABS: ALB/GLOB Ratio 0.8 RATIO (0.9-2.4); AST(SGOT) 21 U/L (15-37); Alanine Aminotransfer ALT/SGPT 29 U/L (13-56); Albumin, Serum 3.5 g/dL (3.2-5.0); Alkaline Phosphatase 102 U/L (45-117); Anion Gap 7 (5-15); BUN 9 mg/dL (7-18); BUN/Creat Ratio 8.7 RATIO (10-20); Calcium,Total 9.4 mg/dL (8.5-10.1); Chloride 104 mmol/L (98-107); Creatinine, Serum 1.03 mg/dL (0.55-1.02); EST Glomerular Filtration Rate 57 mL/min (>60); Est Glom Filt Rate - Afr Amer 69 mL/min (>60); Globulin 4.5 g/dL (2.2-4.2); Glucose 92 mg/dL (74-106); Potassium 3.2 mmol/L (3.5-5.1); Sodium Level 140 mmol/L (136-145)
[2019-06-29 12:26] LABS: Absolute Lymphocyte Count 4.54 X10^3/uL (0.83-4.51); Absolute Neutrophil Count 8.4 X10^3/uL (2.0-7.7); Basophil# 0.09 X10^3/uL; Basophil% 0.6 % (0-1); Eosinophil# 0.71 X10^3/uL; Eosinophils% 4.6 % (0-5); Hematocrit 38.9 % (37-47); Hemoglobin 12.7 g/dL (12.0-15.0); Lymphocyte # 4.54 X10^3/ul (4.0); Lymphocyte % 29.3 % (19-41); Mean Corp Hgb Conc 32.6 g/dL (32-36); Mean Corpuscular Hgb 30.3 pg (27.0-32.0); Mean Corpuscular Volume 92.8 fL (81-99); Mean Platelet Vol. 10.2 fl (6.2-12.0); Monocyte# 1.55 X10^3/uL; NRBC Flagged by Analyzer 0 % (0-5); Neutrophil # 8.38 X10^3/uL (2.7-7.7); Neutrophil % 54.2 % (47-70); POSITIVE DIFFERENTIAL YES; Platelet Count 407 K/mm3 (150-450); RBC Distribution Width CV 13.8 % (11.6-14.6); RBC Distribution Width SD 46.7 fl (35.1-43.9); Red Blood Count 4.19 M/mm3 (4.2-5.4); White Blood Count 15.5 K/mm3 (4.4-11.0)
[2019-06-29 12:28] LABS: Differential Indicated SCAN CRITERIA MET; Vitamin D,25 Hydroxy 25.9 ng/mL (29.95-100.01)
[2019-06-29 13:17] LABS: Platelet Estimate ADEQUATE (ADEQ); Red Cell Morphology NORM C+C NORMAL (NORM C&C)
[2019-07-02 12:03] LABS: Pathologist Review Reviewed
[2019-07-02 15:09] LABS: ANTINUCLEAR ANTIBODIES DIRECT Negative (Negative)
[2019-07-02 16:07] LABS: Cytoplasmic Ab (C-ANCA) <1:20 titer (Neg:<1:20)
[2019-07-03 00:30] LABS: Perinuclear Ab (P-ANCA) <1:20 titer (Neg:<1:20)
== END ==
PROVIDERS: Family Provider Family Medicine; PCP Family Medicine; Referring Provider Family Medicine; Visit Provider Family Medicine
DX: J32.9 Chronic sinusitis, unspecified (principal); J18.9 Pneumonia, unspecified organism; E55.9 Vitamin D deficiency, unspecified
CPT/HCPCS: 70220; 71046; 80053; 82306; 85025; 85652; 86038; 86256

== ENCOUNTER → 2019-09-03 12:25 | Outpatient (CLI) | payer OTHER, SELFPAY ==
[2019-06-26 06:31] VITALS: BMI 28.9
== END ==
LOC: LABSPEC 12:27
PROVIDERS: PCP Family Medicine; Referring Provider Family Medicine; Visit Provider Family Medicine
DX: J32.9 Chronic sinusitis, unspecified (principal)
CPT/HCPCS: 87070; 87077; 87205

== ENCOUNTER → 2019-10-19 11:52 | Outpatient (CLI) | payer OTHER, SELFPAY ==
[2019-06-26 06:31] VITALS: BMI 28.9
[2019-10-19 15:21] LABS: Anion Gap 6 (5-15); BUN 18 mg/dL (7-18); BUN/Creat Ratio 17.8 RATIO (10-20); Calcium,Total 9.2 mg/dL (8.5-10.1); Chloride 105 mmol/L (98-107); Creatinine, Serum 1.01 mg/dL (0.55-1.02); EST Glomerular Filtration Rate 58 mL/min (>60); Est Glom Filt Rate - Afr Amer 70 mL/min (>60); Glucose 70 mg/dL (74-106); Potassium 3.8 mmol/L (3.5-5.1); Sodium Level 139 mmol/L (136-145)
[2019-10-19 15:25] LABS: Vitamin D,25 Hydroxy 22.2 ng/mL
== END ==
PROVIDERS: PCP Family Medicine; Referring Provider Family Medicine; Visit Provider Family Medicine
DX: E55.9 Vitamin D deficiency, unspecified (principal)
CPT/HCPCS: 36415; 80048; 82306

== ENCOUNTER → 2020-01-08 12:40 | Outpatient (CLI) | payer OTHER, SELFPAY ==
[2019-11-13 12:43] VITALS: BMI 29.5
== END ==
PROVIDERS: PCP Family Medicine; Referring Provider Family Medicine; Visit Provider Family Medicine
DX: R31.9 Hematuria, unspecified (principal)
CPT/HCPCS: 87086; 87088

== ENCOUNTER → 2020-01-30 17:54 | Outpatient (CLI) | payer OTHER, SELFPAY ==
[2019-11-13 12:43] VITALS: BMI 29.5
--- NOTE | 2020-01-30 | CYSPIN_PTH ---
PATIENT: BRIAN FOSTER LOC: [facility] U#:[id number] AGE/SX: 70/F ROOM: RE01/30/[address]: Dr. Lucinda Miner MD : 1955 BED: DIS: SPEC #: [id number] RECD: 01/31/20 10:17 STATUS: LINDA REEvette #: [id number] CORBIN: 01/30/20 00:[address]: Lucinda Miner DEPT: CYTOLOGY RECD BY: Giancarlo Espino ENTERED: 01/31/20 10:18 SP TYPE: CYSPIN FL OTHR DR: Dr. Elias Epps MD Tissues: Urine Procedures: Pap Stain (control) Special Stain Group II Cytospin Fluid HEADER OPERATION: Not noted PRE-OP DIAGNOSIS: Hematuria TISSUE SUBMITTED: Urine for cytology DIAGNOSIS CYTOLOGY Urine for cytology (cytospin): Negative for malignant cells. Mild acute inflammation. See comment. JANETTE:gabriel 02/01/20 COMMENT Clinical correlation and appropriate follow up are necessary. CYTOLOGY STUDY Slides are reviewed. CYTOLOGY GROSS Received is 3 ml of light yellow cloudy fluid labeled with the patient's name and and designated per the requisition as urine. Submitted for cytology preparation. / gabriel 01/31/20 TC:2 CPT: 76653
[2020-01-30 17:57] LABS: Cytology, Body Fluid / CSF SEE PATHOLOGY REPORT
== END ==
PROVIDERS: PCP Family Medicine; Referring Provider Urology; Visit Provider Urology
DX: R31.9 Hematuria, unspecified (principal)
CPT/HCPCS: 88108; 88313

== ENCOUNTER → 2020-02-06 07:47 | Outpatient (CLI) | payer OTHER, SELFPAY ==
[2019-11-13 12:43] VITALS: BMI 29.5
--- NOTE | 2020-02-06 07:51 | CT_ITS ---
STUDY: CT ABDOMEN AND PELVIS WITH AND WITHOUT CONTRAST REASON FOR EXAM: Female, 64 years old. PT STATED HEMATURIA X 1 MONTH, HTN, HX TUBIAL LIGATION RADIATION DOSAGE (If Supplied By Facility): CTDIvol = ( 17.43 ) mGy, DLP = ( 2548.26 ) mGycm TECHNIQUE: Transaxial images were obtained from the dome of the diaphragm to the symphysis pubis without oral contrast. IV 100mL Isovue-300 was administered. Sagittal and coronal images were reconstructed. Individualized dose optimization techniques were used for this CT. COMPARISON: None. FINDINGS: Minimal increased linear markings in the medial aspect of the right middle lobe as well as the lingular segment of the left upper lobe suggestive lumbar scarring. The visualized portions of the heart are within normal limits. There is decreased attenuation of the liver consistent with steatosis. I suspect small layering gallstones along the dependent portion of the gallbladder. Normal spleen. Normal pancreas. Normal bilateral adrenal glands. There is a 2 cm x 1.60 m cyst in the medial midportion of the right kidney. 1 cm cyst in the lower pole of the right kidney. There is a 2.4 cm x 2.1 cm cyst in the posterior aspect of the left kidney along its lower portion. There is a small hiatal hernia. Normal small intestine. Normal colon. The appendix is visualized and appears normal. There is scattered atherosclerotic calcification of the abdominal aorta, without a demonstrated aneurysm. Normal inferior vena cava. Normal retroperitoneum. Normal urinary bladder. Tubal ligation clips are seen within the pelvis. Normal abdominal wall. There are degenerative changes of the visualized lumbar spine. CT/CT Abd/Pelvis W/WO Contrast IMPRESSION: Bilateral renal cysts. Fatty infiltration the liver. Findings suggesting small layering gallstones along the dependent portion of the gallbladder lumen. Electronically Signed: Jose Antonio Kumar, at 8:49 EDT , Service support ,
[2020-02-06 08:00] LABS: CREATININE FINGERSTICK < 0.6 mg/dL (0.55-1.02)
== END ==
PROVIDERS: PCP Family Medicine; Referring Provider Urology; Visit Provider Urology
DX: R31.0 Gross hematuria (principal)
CPT/HCPCS: 74178; Q9967

== ENCOUNTER → 2020-02-13 14:18 | Outpatient (CLI) | payer OTHER, SELFPAY ==
[2019-11-13 12:43] VITALS: BMI 29.5
--- NOTE | 2020-02-13 14:25 | US_ITS ---
STUDY: ULTRASOUND OF THE FEMALE PELVIS - COMPLETE REASON FOR EXAM: Female, 64 years old. PMB LMP: Postmenopausal bleeding. TECHNIQUE: Transabdominal real time exam with grayscale image documentation. TECHNICAL QUALITY: Adequate. COMPARISON: Prior abdomen and pelvic CT exam of 02/06/2020 FINDINGS: The uterus is anteverted and is in a midline position. The uterus measures 7.2 x 3.6 x 2.8 cm. Normal uterine cervix. The endometrium measures 2 mm in thickness, and is hyperechoic. There is no demonstrated endometrial mass. There is no demonstrated myometrial mass. I.U.D. - The patient does not have an I.U.D. The right ovary is visualized. The right ovary measures 2.2 x 1.5 x 0.9 cm. There is no right ovarian cyst or ovarian mass. There is no visualized right adnexal mass or complex lesion. There is normal arterial and normal venous vascularity. The left ovary is visualized. The left ovary measures 2.1 x 1.4 x 0.9 cm. There is no left ovarian cyst or ovarian mass. There is no visualized left adnexal mass or complex lesion. There is normal arterial and normal venous vascularity. There is no fluid in the cul-de-sac. The pre void volume of the bladder was 566 ml. Polycystic ovary disease: No. US/Pelvic (Non ) IMPRESSION: Normal female pelvis. Electronically Signed: Bianca Lewis MD at 16:00 EDT , Service support ,
== END ==
PROVIDERS: PCP Family Medicine; Referring Provider Urology; Visit Provider Urology
DX: N93.9 Abnormal uterine and vaginal bleeding, unspecified (principal)
CPT/HCPCS: 76856

== ENCOUNTER → 2020-04-07 15:25 | Outpatient (CLI) | payer OTHER, SELFPAY ==
[2019-11-13 12:43] VITALS: BMI 29.5
== END ==
PROVIDERS: PCP Family Medicine; Referring Provider Family Medicine; Visit Provider Family Medicine
DX: R09.89 Other specified symptoms and signs involving the circulatory and respiratory systems (principal)
CPT/HCPCS: 87633; 87635; U0003

== ENCOUNTER → 2020-05-02 08:09 | Outpatient (CLI) | payer OTHER, SELFPAY ==
[2019-11-13 12:43] VITALS: BMI 29.5
[2020-05-02 10:18] LABS: ALB/GLOB Ratio 1.1 RATIO (0.9-2.4); AST(SGOT) 21 U/L (15-37); Alanine Aminotransfer ALT/SGPT 22 U/L (13-56); Albumin, Serum 3.7 g/dL (3.2-5.0); Alkaline Phosphatase 97 U/L (45-117); Anion Gap 6 (5-15); BUN 15 mg/dL (7-18); BUN/Creat Ratio 13.6 RATIO (10-20); Calcium,Total 9.5 mg/dL (8.5-10.1); Chloride 106 mmol/L (98-107); Cholesterol 192 mg/dL (200); EST Glomerular Filtration Rate 53 mL/min (>60); Est Glom Filt Rate - Afr Amer 64 mL/min (>60); Globulin 3.5 g/dL (2.2-4.2); Glucose 85 mg/dL (74-106); High Density Lipoprotein 70 mg/dL; Potassium 3.7 mmol/L (3.5-5.1); Protein, Total 7.2 g/dL (6.4-8.2); Sodium Level 140 mmol/L (136-145); Triglycerides 68 mg/dL; Very Low Density Lipoprotein 14 mg/dL (5-40)
[2020-05-02 10:20] LABS: Vitamin D,25 Hydroxy 19.8 ng/mL
== END ==
PROVIDERS: PCP Family Medicine; Referring Provider Family Medicine; Visit Provider Family Medicine
DX: Z00.00 Encounter for general adult medical examination without abnormal findings (principal); I10 Essential (primary) hypertension; E55.9 Vitamin D deficiency, unspecified
CPT/HCPCS: 36415; 80053; 80061; 82306

== ENCOUNTER → 2020-05-26 16:42 | Outpatient (CLI) | payer OTHER, SELFPAY ==
[2020-05-26 14:00] VITALS: BMI 32.1
[2020-05-30 04:50] LABS: HPV APTIMA, High Risk Negative (Negative)
== END ==
PROVIDERS: PCP Family Medicine; Visit Provider Obstetrics & Gynecology
DX: Z12.4 Encounter for screening for malignant neoplasm of cervix (principal)
CPT/HCPCS: 87624; 88175; G0145

== ENCOUNTER → 2020-06-18 16:07 | Outpatient (CLI) | payer OTHER, SELFPAY ==
[2020-06-18 12:55] VITALS: BMI 32.4
--- NOTE | 2020-06-18 13:30 | EMB_PTH ---
PATIENT: BRIAN FOSTER LOC: [facility] U#:[id number] AGE/SX: 70/F ROOM: RE06/18/[address]: Dr. Dory Estrada MD : 1955 BED: DIS: SPEC #: [id number] RECD: 06/18/20 15:53 STATUS: LINAD REEvette #: [id number] CORBIN: 06/18/20 13:[address]: Dory Estrada DEPT: SURGICAL PATHOLOGY RECD BY: Shanice Villarreal ENTERED: 06/19/20 07:52 SP TYPE: ENDOM BX/C JULIEN DR: Dr. Elias Epps MD Tissues: Endometrium, NOS Procedures: Surgery Specimen Level IV HEADER OPERATION: Endometrial biopsy PRE-OP DIAGNOSIS: Postmenopausal bleeding TISSUE SUBMITTED: Endometrial lining MICROSCOPIC DIAGNOSIS Endometrium, biopsy: Strips of benign superficial glandular mucosa. AM:gabriel 06/20/20 MICROSCOPIC DESCRIPTION Slides are reviewed. GROSS DESCRIPTION Received in fixative is one container labeled with the patient's name and designated endometrium. The specimen consists of a scant amount of soft tissue. The specimen is totally submitted for cell block preparation. / JANETTE:gabriel 06/19/20 TC:5 CPT: 70308
== END ==
PROVIDERS: PCP Family Medicine; Visit Provider Obstetrics & Gynecology
DX: N95.0 Postmenopausal bleeding (principal)
CPT/HCPCS: 88305

== ENCOUNTER → 2020-07-18 16:25 | Outpatient (CLI) | payer OTHER, SELFPAY ==
[2020-07-18 10:08] VITALS: BMI 32.8
== END ==
PROVIDERS: PCP Family Medicine; Referring Provider Obstetrics & Gynecology; Visit Provider Obstetrics & Gynecology
DX: R82.90 Unspecified abnormal findings in urine (principal)
CPT/HCPCS: 87086

== ENCOUNTER → 2020-10-27 08:36 | Outpatient (CLI) | payer OTHER, SELFPAY ==
[2020-07-18 10:08] VITALS: BMI 32.8
[2020-09-17 14:28] VITALS: BMI 32.8
--- NOTE | 2020-10-27 09:49 | NEURO_ITS ---
NCS and/or EMG Patient Report Ordering Doctor: Jorge Cortes DATE OF SERVICE: 10/27/20 Indication: Pain in the left wrist with associated, intermittent, paresthesias in digits 1-2 of the left hand. History of CTS status post release on the contralateral (right) side. Evaluate for median entrapment neuropathy in the left upper extremity. Findings: Nerve conduction studies were performed in the left upper extremity. The left median motor study recording the abductor pollicis brevis showed a normal amplitude, normal distal latency and normal conduction velocity. The left ulnar motor study recording the abductor digiti minimi showed a normal amplitude, normal distal latency and normal conduction velocity. Focal slowing was present across the elbow (~12 m/s). The left median sensory response recording digit two showed a normal amplitude, borderline latency and mildly slowed conduction velocity. The left ulnar sensory response recording digit five showed a normal amplitude, latency and conduction velocity. The left radial sensory response recording over the extensor snuff box showed a normal amplitude, latency and conduction velocity. As routine median motor and sensory studies have a false negative rate of 25%, additional internal comparison studies were done to assess for possible median neuropathy at the wrist. These internal comparison studies (median vs. ulnar palmar mixed; median vs. ulnar sensory recording digit four; median vs. ulnar motor studies to the second lumbrical / interosseous; median vs. radial sensory studies recording digit one; median segmental sensory studies comparing the wrist-palm and palm-digit velocities) increase the electrodiagnostic sensitivity rate to 95%. However, due to statistical issues with multiple tests, it is required that at least two studies are abnormal to reduce the false positive rate to acceptable levels. Left median-ulnar sensory latencies to the ring finger showed a prolonged median latency compared to the ulnar. Left median- ulnar lumbrical / interosseous motor latencies showed a prolonged median latency compared to the ulnar. Needle EMG of the left upper extremity and cervical paraspinal muscles was performed. No denervation was seen in any muscle. All motor unit morphology, activation and recruitment patterns were normal. Impression: This is a mildly abnormal study. 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 The pathophysiology is demyelinating without evidence of secondary axonal loss. These findings are compatible with the clinical diagnosis of carpal tunnel syndrome. 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 Finally, there is no evidence of a superimposed cervical radiculopathy in the left upper extremity. Ermias Lerner D.O.
== END ==
PROVIDERS: PCP Family Medicine; Referring Provider Specialist; Visit Provider Specialist
DX: G56.02 Carpal tunnel syndrome, left upper limb (principal)
CPT/HCPCS: 95886; 95911

== ENCOUNTER → 2021-01-13 12:07 | Outpatient (CLI) | payer OTHER, SELFPAY ==
[2020-09-17 14:28] VITALS: BMI 32.8
[2021-01-13 15:29] LABS: AST(SGOT) 25 U/L (15-37); Alanine Aminotransfer ALT/SGPT 29 U/L (13-56); Albumin, Serum 3.9 g/dL (3.2-5.0); Alkaline Phosphatase 102 U/L (45-117); Anion Gap 7 (5-15); BUN 10 mg/dL (7-18); BUN/Creat Ratio 9.6 RATIO (10-20); Calcium,Total 9.5 mg/dL (8.5-10.1); Chloride 104 mmol/L (98-107); Creatinine, Serum 1.04 mg/dL (0.55-1.02); EST Glomerular Filtration Rate 56 mL/min (>60); Est Glom Filt Rate - Afr Amer 68 mL/min (>60); Free T3 2.3 pg/mL (2.18-3.98); Globulin 3.8 g/dL (2.2-4.2); Glucose 71 mg/dL (74-106); Potassium 3.9 mmol/L (3.5-5.1); Protein, Total 7.7 g/dL (6.4-8.2); Sodium Level 139 mmol/L (136-145); T4 Free Direct 1.21 ng/dL (0.76-1.46)
== END ==
PROVIDERS: PCP Family Medicine; Visit Provider Family Medicine
DX: I10 Essential (primary) hypertension (principal); E03.9 Hypothyroidism, unspecified
CPT/HCPCS: 36415; 80053; 84439; 84443; 84481

== ENCOUNTER → 2021-02-23 | Outpatient (CLI) | payer OTHER, SELFPAY ==
[2020-09-17 14:28] VITALS: BMI 32.8
== END | disposition home or self-care (01) ==
PROVIDERS: PCP Family Medicine; Referring Provider Family Medicine; Visit Provider Family Medicine
DX: R09.89 Other specified symptoms and signs involving the circulatory and respiratory systems (principal)
CPT/HCPCS: 87635; U0005; U0003

== ENCOUNTER → 2021-03-19 14:03 | Outpatient (CLI) | payer OTHER, SELFPAY ==
[2021-03-19 18:47] LABS: Vitamin D,25 Hydroxy 25.2 ng/mL
[2021-03-19 18:55] LABS: Free T3 2.5 pg/mL (2.18-3.98); T4 Free Direct 1.18 ng/dL (0.76-1.46); Thyroid Stim Hormone (TSH) 6.51 uIU/mL (0.358-3.74)
== END ==
PROVIDERS: PCP Family Medicine; Referring Provider Family Medicine; Visit Provider Nurse Practitioner Family
DX: E55.9 Vitamin D deficiency, unspecified (principal); E03.9 Hypothyroidism, unspecified
CPT/HCPCS: 36415; 82306; 84439; 84443; 84481

== ENCOUNTER 2021-08-05 08:24 | Outpatient (CLI) | payer OTHER, SELFPAY ==
[2021-08-05 10:06] LABS: Absolute Lymphocyte Count 2.22 X10^3/uL (0.83-4.51); Absolute Neutrophil Count 4.6 X10^3/uL (2.0-7.7); Basophil# 0.11 X10^3/uL; Basophil% 1.3 % (0-1); Eosinophil# 0.96 X10^3/uL; Hematocrit 40.3 % (37-47); Hemoglobin 13.1 g/dL (12.0-15.0); Lymphocyte # 2.22 X10^3/ul (0.83-4.51); Lymphocyte % 25.5 % (19-41); Mean Corp Hgb Conc 32.5 g/dL (32-36); Mean Corpuscular Hgb 30.3 pg (27.0-32.0); Mean Corpuscular Volume 93.3 fL (81-99); Mean Platelet Vol. 10.2 fl (6.2-12.0); Monocyte# 0.78 X10^3/uL; Monocyte% 8.9 % (0-10); NRBC Flagged by Analyzer 0 % (0-5); Neutrophil # 4.63 X10^3/uL (2.7-7.7); Neutrophil % 53.1 % (47-70); Platelet Count 380 K/mm3 (150-450); RBC Distribution Width CV 13.1 % (11.6-14.6); RBC Distribution Width SD 45.1 fl (35.1-43.9); Red Blood Count 4.32 M/mm3 (4.2-5.4); White Blood Count 8.7 K/mm3 (4.4-11.0)
[2021-08-05 10:34] LABS: ALB/GLOB Ratio 0.9 RATIO (0.9-2.4); AST(SGOT) 23 U/L (15-37); Alanine Aminotransfer ALT/SGPT 30 U/L (13-56); Albumin, Serum 3.5 g/dL (3.2-5.0); Alkaline Phosphatase 106 U/L (45-117); Anion Gap 6 (5-15); BUN 11 mg/dL (7-18); BUN/Creat Ratio 11.1 RATIO (10-20); Calcium,Total 9.1 mg/dL (8.5-10.1); Chloride 107 mmol/L (98-107); Cholesterol 201 mg/dL (200); Creatinine, Serum 0.99 mg/dL (0.55-1.02); EST Glomerular Filtration Rate 59 mL/min (>60); Est Glom Filt Rate - Afr Amer 72 mL/min (>60); Free T3 2.7 pg/mL (2.18-3.98); Globulin 3.7 g/dL (2.2-4.2); Glucose 90 mg/dL (74-106); High Density Lipoprotein 78 mg/dL; Potassium 3.9 mmol/L (3.5-5.1); Protein, Total 7.2 g/dL (6.4-8.2); Sodium Level 140 mmol/L (136-145); T4 Free Direct 1.25 ng/dL (0.76-1.46); Thyroid Stim Hormone (TSH) 0.96 uIU/mL (0.358-3.74); Triglycerides 57 mg/dL; Very Low Density Lipoprotein 11 mg/dL (5-40)
[2021-08-05 10:39] LABS: Vitamin D,25 Hydroxy 60.4 ng/mL
[2021-08-05 10:59] LABS: Hemoglobin A1c 5.6 % (3.8-5.6)
[2021-08-05 11:02] LABS: Microalbumin,Random Urine 17.7 mg/L (NO RANGE EST.); Microalbumin:Creatinine Ratio 20.7 mg/g CRE (<30 mg/g CRE)
== END 2021-08-05 23:59 | disposition short-term general hospital (02) ==
LOC: MFPLAB 08:25
PROVIDERS: PCP Family Medicine; Referring Provider Family Medicine; Visit Provider Family Medicine
DX: Z00.00 Encounter for general adult medical examination without abnormal findings (principal); E66.9 Obesity, unspecified; E03.9 Hypothyroidism, unspecified; I10 Essential (primary) hypertension; M85.80 Other specified disorders of bone density and structure, unspecified site; Z68.34 Body mass index [BMI] 34.0-34.9, adult
CPT/HCPCS: 36415; 80053; 80061; 82043; 82306; 82570; 83036; 84439; 84443; 84481; 85025

== ENCOUNTER 2021-08-27 13:15 | Outpatient (CLI) | payer OTHER, SELFPAY ==
--- NOTE | 2021-08-27 13:18 | BI_ITS ---
MAMMOGRAPHY - BILATERAL SCREENING REASON FOR EXAM: Female, 66 years old. Routine annual screening examination. PERTINENT HISTORY: Non-contributory. TECHNIQUE: Digital bilateral breast marilee (3D mammographic acquisition) in the CC and MLO projections. 2-D mediolateral oblique (MLO) and craniocaudad (CC) views of both breasts were obtained. CAD: Full Field Digital Mammography with Computer Added Detection was performed. COMPARISON: Comparison is made with prior examination dated 06/13/2019 and 06/24/2015. FINDINGS: Breast Composition: The breasts are heterogeneously dense, which may obscure small masses. There are no dominant masses or suspicious calcifications. Stable small benign-appearing bilateral axillary lymph nodes. No other significant abnormalities are identified. There has been no significant change since the prior study. BI/SCREENING MAMM (CAD), BILAT IMPRESSION: Stable bilateral screening mammogram. Yearly follow-up mammogram recommended. (A) ASSESSMENT CATEGORY: BIRADS Category 2: Benign. A letter regarding these results will be sent to the patient by the facility within 30 days. Approximately 10% of breast cancers are not detected by mammography. A normal mammogram should not delay biopsy of a clinically suspicious abnormality. [id number] Electronically Signed: Jose Antonio Kumar MD at 14:33 EST ,
--- NOTE | 2021-08-27 13:20 | BD_ITS ---
STUDY: DUAL ENERGY X-RAY ABSORPTIOMETRY / DXA REASON FOR EXAM: Female, 66 years old. Z780. Patient is post menopausal. TECHNIQUE: Bone Mineral Density (BMD) measurements of lumbar spine and left hip were obtained. COMPARISON: Comparison is made with prior study dated 06/13/2019. FINDINGS: Lumbar Spine (L1-L4): g/cm2 (0.942) / T-score (-0.3) / Z-score (1.5) Findings are suggestive of normal bone density with a low fracture risk. Left Femur Total: g/cm2 (0.855) / T-score (-0.7) / Z-score (0.7) Left Femoral Neck: g/cm2 (0.6 x 7) / T-score (-1.7) / Z-score (0.0) The T-Scores on the most recent prior examination were: Lumbar Spine (L1-L4): There has been improvement of bone density since the previous examination. Left Femur Total: which represents an improvement of 3.8%. BD/Dexa Bone Density Study IMPRESSION: The patient is considered osteopenic as outlined below according to World [employer] Organization (WHO) criteria with a moderate fracture risk. There has been improvement of bone density since the previous examination. Reference Information: The T-score is the number of standard deviations above or below the standard which is normal for young adults at their peak bone mineral density. The World Health Organization (WHO) interprets the T-scores as follows: Above -1 Normal bone density Between -1 and -2.5 Osteopenia Equal to / or below -2.5 Osteoporosis As a practical clinical guideline, osteopenia may be graded as follows: Mild -1 through -1.5 Moderate -1.6 through -2.0 Severe -2.1 through -2.4 The Z-score is the number of standard deviations above or below age-matched controls. A Z-score of less than -1.5 would be considered abnormal. References: 1. NIH Osteoporosis and Related Bone Diseases www osteo.org 2. International Society for Clinical Densitometry www iscd.org 3. National Osteoporosis Foundation www nof.org Electronically Signed: Jose Antonio Kumar MD at 14:32 EST ,
== END 2021-08-27 23:59 | disposition home or self-care (01) ==
LOC: OPBD 13:16
PROVIDERS: PCP Family Medicine; Referring Provider Family Medicine; Visit Provider Family Medicine
DX: Z78.0 Asymptomatic menopausal state (principal); Z12.31 Encounter for screening mammogram for malignant neoplasm of breast; M85.80 Other specified disorders of bone density and structure, unspecified site
CPT/HCPCS: 77067; 77080

== ENCOUNTER 2021-09-04 15:22 | Outpatient (CLI) | payer OTHER, SELFPAY | END 2021-09-04 23:59 | disposition home or self-care (01) | LOC: LABSPEC 15:24 | PROVIDERS: PCP Family Medicine; Visit Provider Otolaryngology | DX: J01.90 Acute sinusitis, unspecified (principal) | CPT/HCPCS: 87070; 87077; 87186; 87205 ==

== ENCOUNTER → 2022-01-29 | Outpatient (CLI) | payer OTHER, SELFPAY ==
[2022-01-29 12:34] LABS: ALB/GLOB Ratio 1.1 RATIO (0.9-2.4); AST(SGOT) 24 U/L (15-37); Alanine Aminotransfer ALT/SGPT 28 U/L (13-56); Albumin, Serum 3.8 g/dL (3.2-5.0); Alkaline Phosphatase 103 U/L (45-117); Anion Gap 7 (5-15); BUN 11 mg/dL (7-18); BUN/Creat Ratio 11.1 RATIO (10-20); Calcium,Total 9.5 mg/dL (8.5-10.1); Chloride 106 mmol/L (98-107); Creatinine, Serum 0.99 mg/dL (0.55-1.02); EST Glomerular Filtration Rate 59 mL/min (>60); Est Glom Filt Rate - Afr Amer 71 mL/min (>60); Globulin 3.5 g/dL (2.2-4.2); Glucose 107 mg/dL (74-106); Potassium 4.1 mmol/L (3.5-5.1); Protein, Total 7.3 g/dL (6.4-8.2); Sodium Level 139 mmol/L (136-145)
== END | disposition home or self-care (01) ==
LOC: MFPLAB 10:38
PROVIDERS: PCP Family Medicine; Referring Provider Family Medicine; Visit Provider Family Medicine
DX: I10 Essential (primary) hypertension (principal)
CPT/HCPCS: 36415; 80053

== ENCOUNTER → 2022-08-02 | Outpatient (CLI) | payer OTHER, SELFPAY ==
[2022-08-02 09:51] LABS: Absolute Neutrophil Count 4.2 X10^3/uL (2.0-7.7); Basophil# 0.09 X10^3/uL; Basophil% 0.9 % (0-1); Eosinophil# 1.35 X10^3/uL; Eosinophils% 14.1 % (0-5); Hematocrit 40.2 % (37-47); Hemoglobin 13.1 g/dL (12.0-15.0); Lymphocyte % 31.4 % (19-41); Mean Corp Hgb Conc 32.6 g/dL (32-36); Mean Corpuscular Hgb 30.8 pg (27.0-32.0); Mean Corpuscular Volume 94.4 fL (81-99); Mean Platelet Vol. 9.9 fl (6.2-12.0); Monocyte% 9.4 % (0-10); NRBC Flagged by Analyzer 0 % (0-5); Neutrophil # 4.17 X10^3/uL (2.7-7.7); Neutrophil % 43.8 % (47-70); Platelet Count 363 K/mm3 (150-450); RBC Distribution Width CV 13.2 % (11.6-14.6); RBC Distribution Width SD 45.5 fl (35.1-43.9); Red Blood Count 4.26 M/mm3 (4.2-5.4); White Blood Count 9.6 K/mm3 (4.4-11.0)
[2022-08-02 10:08] LABS: Vitamin D,25 Hydroxy 48.6 ng/mL
[2022-08-02 10:13] LABS: Microalbumin,Random Urine 5.6 mg/L (NO RANGE EST.); Microalbumin:Creatinine Ratio 8.8 mg/g CRE (<30 mg/g CRE)
[2022-08-02 10:32] LABS: ALB/GLOB Ratio 0.8 RATIO (0.9-2.4); AST(SGOT) 19 U/L (15-37); Alanine Aminotransfer ALT/SGPT 31 U/L (13-56); Albumin, Serum 3.3 g/dL (3.2-5.0); Alkaline Phosphatase 89 U/L (45-117); Anion Gap 7 (5-15); BUN 10 mg/dL (7-18); Calcium,Total 9.1 mg/dL (8.5-10.1); Chloride 108 mmol/L (98-107); Creatinine, Serum 0.91 mg/dL (0.55-1.02); EST Glomerular Filtration Rate 65 mL/min (>60); Est Glom Filt Rate - Afr Amer 79 mL/min (>60); Free T3 3.2 pg/mL (2.18-3.98); Glucose 83 mg/dL (74-106); Potassium 3.8 mmol/L (3.5-5.1); Protein, Total 7.3 g/dL (6.4-8.2); Sodium Level 141 mmol/L (136-145); T4 Free Direct 1.29 ng/dL (0.76-1.46); Thyroid Stim Hormone (TSH) 0.28 uIU/mL (0.358-3.74)
== END | disposition home or self-care (01) ==
LOC: MTLAB 07:55
PROVIDERS: PCP Family Medicine; Referring Provider Family Medicine; Visit Provider Family Medicine
DX: I12.9 Hypertensive chronic kidney disease with stage 1 through stage 4 chronic kidney disease, or unspecified chronic kidney disease (principal); N18.2 Chronic kidney disease, stage 2 (mild); E03.9 Hypothyroidism, unspecified
CPT/HCPCS: 36415; 80053; 82043; 82306; 82570; 84439; 84443; 84481; 85025

== ENCOUNTER → 2022-09-13 | Outpatient (CLI) | payer OTHER, SELFPAY ==
[2022-09-13 15:44] LABS: T4 Free Direct 1.41 ng/dL (0.76-1.46); Thyroid Stim Hormone (TSH) 0.44 uIU/mL (0.358-3.74)
== END | disposition home or self-care (01) ==
PROVIDERS: PCP Family Medicine; Referring Provider Family Medicine; Visit Provider Family Medicine
DX: E03.9 Hypothyroidism, unspecified (principal)
CPT/HCPCS: 36415; 84439; 84443; 84481

== ENCOUNTER → 2022-11-16 | Outpatient (CLI) | payer OTHER, SELFPAY ==
--- NOTE | 2022-11-16 08:09 | CT_ITS ---
STUDY: CT SCAN REST RIGHT REASON FOR EXAM: Female, 67 years old. Contusion of right wrist, initial encounter. Recent fall. Continued pain. Attention scaphoid. RADIATION DOSAGE (If Supplied By Facility): CTDIvol = ( 24.58 ) mGy, DLP = ( 448.98 ) mGycm. Individualized dose optimization techniques were used for this CT.? TECHNIQUE: Multiple axial tomographic images were obtained without intravenous contrast administration. Coronal and sagittal reconstructions obtained as well. COMPARISON: None. FINDINGS: The carpal bones are unremarkable. No fracture is seen. There is evidence of an old avulsion fracture of the ulnar styloid. CT/Extremity Upper without Contra IMPRESSION: No acute abnormality is seen. Electronically Signed: Jose Antonio Kumar MD at 13:14 EDT ,
== END | disposition home or self-care (01) ==
LOC: CT 08:08
PROVIDERS: PCP Family Medicine; Referring Provider Physician Assistant; Visit Provider Physician Assistant
DX: S60.211A Contusion of right wrist, initial encounter (principal)
CPT/HCPCS: 73200

== ENCOUNTER 2022-11-25 07:00 | Outpatient (RCR) | payer OTHER, SELFPAY ==
--- NOTE | 2022-11-19 11:33 | HP.PTEVAL_ITS ---
Patient's Visit Information BRIAN FOSTER is a 67 year old F referred to Physical Therapy by FREDY MACIAS with a diagnosis of R Plantar Fasciitis. 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 She said that it started approximately 4 months ago and wasn't sure why? - Pain Right Foot Pain Intensity (Out of 10): 4 Pain Intensity Range: 1, 9 - Objective Very flexible foot at 40 degrees inversion and 20 eversion, with pes cavus arch structure. No Pain with resisted hallux dorsiflexion, posterior tibialis. Most of her pain was focused at the insertion and calcaneus, I didn't appreciate any hot spots along the plantar surface. Resisted eversion did give her a littel pain at insertion. She has a very dry foot was calcaneal callus. I tried a trial of iontophoresis dexamethasone topically but was unable due conductivity. We used ultrasound and then I taped her arch. If the taping gives her some relief I may build up her arch and heel in an orthotic. Maybe a candidate for shockwave therapy but I'll try all conversative means prior. - Balance/Special Test Scores Lower Extremity Functional Score: 45 - Goals Goal 1:: Return demo HEP Goal Time Frame: 1 Week Goal 2:: Decrease pain via modalities 3/10 Goal Time Frame: 2 Weeks Goal 3:: Improve strength Goal Time Frame: 4-6 Weeks Goal 4:: CAst for Orthotics Goal Time Frame: 1 Week - Rehabilitation Potential Physical Therapy Diagnosis: R plantar Fasciitis at primary at insertion Rehabilitation Potential: Good - Anticipated Interventions Patient/Client Instruction: Educate patient on: Condition, Plan of Care For the Purpose of:: To decrease pain, To increase ROM, To increase flexibility/ROM Therapeutic Exercise to Include: Strength training, Balance training For the Purpose of:: To decrease pain, To increase ROM Manual Therapy Techniques to Include: Scar massage, Mobilization For the Purpose of:: To decrease pain, To increase ROM Iontophoresis (with Dexamethozone, with Acetic acid): Yes Functional electric stimulation: Yes Cryotherapy (ice pack, ice massage): Yes Ultrasound (thermal/non thermal): Yes For the Purpose of:: To decrease pain, To increase ROM Thank you for the opportunity to evaluate your patient. For Medicare and Medicare HMO plans, please review the plan of care and approve it. It will need to be FAXED BACK to us at [phone] for Medicare purposes. For Medicare only, by signing this I certify the plan of care. Please let me know if there are questions or concerns regarding this plan of care. Physician Signature: Date:
--- NOTE | 2022-12-13 15:41 | HP.PTDCSUM ---
It has been my pleasure to treat BRIAN FOSTER referred by FREDY MACIAS, with the diagnosis of R Plantar Fasciitis for a total of 3 visit(s). Discharge Date: 12/13/22 Please see the following information for a summary of their discharge status. Subjective: AM stiffness, soreness. Increases with prolonged walking. Better with the exercise and stretching. Right Foot Pain Intensity (Out of 10): 1 Objective/Function: Good tolerance to combination of manual therapy and exercise. Asymptomatic post session. Ankle dorsiflexion range of motion is limited bilaterally. Goal 1:: Return demo HEP Goal 2:: Decrease pain via modalities 09/17 Goal 3:: Improve strength Goal 4:: CAst for Orthotics Plan: Cast for orthotics, add ankle isolator DF, INV vaibhav Discharge Comments: Mrs. Wyatt fell in her bathroom breaking her foot. So she is non weight bearing with a cast or walking boot. We would be happy to see her in the future if necessary If there are questions or concerns regarding this patient's physical therapy, please feel free to call me at [phone]. Thank you for the referral of this patient. Sincerely, Dell Hernandez, PT, FITO, SCS, CSCS Balance/Gait/Functional tests - Balance/Special Test Scores Lower Extremity Functional Score: 45
== END 2022-11-25 19:00 | disposition home or self-care (01) ==
LOC: PT 07:00
PROVIDERS: PCP Family Medicine
DX: M72.2 Plantar fascial fibromatosis (principal)
CPT/HCPCS: 97035; 97110; 97140; 97161

== ENCOUNTER → 2023-04-01 | Outpatient (CLI) | payer MEDICARE, SELFPAY ==
[2023-04-01 12:20] LABS: Absolute Lymphocyte Count 2.64 X10^3/uL (0.83-4.51); Absolute Neutrophil Count 3.6 X10^3/uL (2.0-7.7); Basophil# 0.07 X10^3/uL; Basophil% 0.9 % (0-1); Eosinophil# 0.76 X10^3/uL; Hematocrit 41.5 % (37-47); Hemoglobin 13.2 g/dL (12.0-15.0); Lymphocyte # 2.64 X10^3/ul (0.83-4.51); Lymphocyte % 34.8 % (19-41); Mean Corp Hgb Conc 31.8 g/dL (32-36); Mean Corpuscular Hgb 30.6 pg (27.0-32.0); Mean Corpuscular Volume 96.1 fL (81-99); Mean Platelet Vol. 10.5 fl (6.2-12.0); Monocyte# 0.48 X10^3/uL; Monocyte% 6.3 % (0-10); NRBC Flagged by Analyzer 0 % (0-5); Neutrophil # 3.63 X10^3/uL (2.7-7.7); Neutrophil % 47.9 % (47-70); Platelet Count 365 K/mm3 (150-450); RBC Distribution Width CV 13.2 % (11.6-14.6); RBC Distribution Width SD 47.2 fl (35.1-43.9); Red Blood Count 4.32 M/mm3 (4.2-5.4); White Blood Count 7.6 K/mm3 (4.4-11.0)
[2023-04-01 12:47] LABS: Vitamin D,25 Hydroxy 49.4 ng/mL
[2023-04-01 12:49] LABS: Microalbumin,Random Urine 5.8 mg/L (NO RANGE EST.); Microalbumin:Creatinine Ratio 8.8 mg/g CRE (<30 mg/g CRE)
[2023-04-01 13:37] LABS: ALB/GLOB Ratio 0.9 RATIO (0.9-2.4); AST(SGOT) 22 U/L (15-37); Alanine Aminotransfer ALT/SGPT 30 U/L (13-56); Albumin, Serum 3.3 g/dL (3.2-5.0); Alkaline Phosphatase 92 U/L (45-117); Anion Gap 4 (5-15); BUN 9 mg/dL (7-18); BUN/Creat Ratio 10.2 RATIO (10-20); Calcium,Total 8.9 mg/dL (8.5-10.1); Chloride 109 mmol/L (98-107); Cholesterol 185 mg/dL (200); Creatinine, Serum 0.88 mg/dL (0.55-1.02); EST Glomerular Filtration Rate 67 mL/min (>60); Est Glom Filt Rate - Afr Amer 81 mL/min (>60); Globulin 3.6 g/dL (2.2-4.2); Glucose 75 mg/dL (74-106); High Density Lipoprotein 50 mg/dL; Protein, Total 6.9 g/dL (6.4-8.2); Sodium Level 139 mmol/L (136-145); T4 Free Direct 1.15 ng/dL (0.76-1.46); Thyroid Stim Hormone (TSH) 0.88 uIU/mL (0.358-3.74); Triglycerides 96 mg/dL; Very Low Density Lipoprotein 19 mg/dL (5-40)
== END | disposition home or self-care (01) ==
PROVIDERS: PCP Family Medicine; Referring Provider Family Medicine; Visit Provider Family Medicine
DX: Z00.00 Encounter for general adult medical examination without abnormal findings (principal); E03.9 Hypothyroidism, unspecified; E55.9 Vitamin D deficiency, unspecified; I10 Essential (primary) hypertension
CPT/HCPCS: 36415; 80053; 80061; 82043; 82306; 82570; 84439; 84443; 84481; 85025

== ENCOUNTER → 2023-09-19 | Outpatient (CLI) | payer MEDICARE, SELFPAY | END | disposition home or self-care (01) | PROVIDERS: PCP Family Medicine; Referring Provider Internal Medicine Critical Care Medicine; Visit Provider Internal Medicine Critical Care Medicine | DX: R05.9 Cough, unspecified (principal) | CPT/HCPCS: 94060; 94726; 94729 ==

== ENCOUNTER → 2023-11-28 | Outpatient (CLI) | payer MEDICARE, SELFPAY ==
--- NOTE | 2023-11-28 10:29 | RAD_ITS ---
STUDY: X-RAY CHEST REASON FOR EXAM: Female, 68 years old. cough TECHNIQUE: PA and lateral views of the chest. COMPARISON: None. FINDINGS: Interstitial fibrotic scarring is present in the bilateral lung bases. No visualized consolidation or infiltrates. There is no demonstrated pleural abnormality. Normal size heart. Normal mediastinum and caryn. Normal visualized pulmonary arteries. There is atherosclerotic calcification of the aortic arch with tortuosity. There are diffuse degenerative changes of the visualized thoracic spine. Normal visualized ribs, clavicles, and shoulders. There is no demonstrated abnormality of the visualized soft tissue structures of the upper abdomen. RAD/Chest PA and Lateral IMPRESSION: Degenerative changes, as described above. No demonstrated acute cardiopulmonary process. Electronically Signed: Levy Velazquez MD at 11:39 EDT ,
== END | disposition home or self-care (01) ==
PROVIDERS: PCP Family Medicine; Referring Provider Physician Assistant; Visit Provider Physician Assistant
DX: R05.9 Cough, unspecified (principal)
CPT/HCPCS: 71046

== ENCOUNTER → 2024-04-06 | Outpatient (CLI) | payer MEDICARE, SELFPAY ==
[2024-04-06 13:18] LABS: Microalbumin,Random Urine 14.2 mg/L (NO RANGE EST.); Microalbumin:Creatinine Ratio 47.8 mg/g CRE (<30 mg/g CRE)
[2024-04-06 15:47] LABS: Vitamin D,25 Hydroxy 51.2 ng/mL
[2024-04-06 15:55] LABS: Cholesterol 172 mg/dL (200); Free T3 3.4 pg/mL (2.18-3.98); High Density Lipoprotein 64 mg/dL; T4 Total, Thyroxin 11.8 ug/dL (4.8-13.9); Thyroid Stim Hormone (TSH) 0.041 uIU/mL (0.358-3.740); Triglycerides 54 mg/dL; Very Low Density Lipoprotein 11 mg/dL (5-40)
== END | disposition home or self-care (01) ==
LOC: MFPLAB 11:08
PROVIDERS: PCP Family Medicine; Visit Provider Family Medicine
DX: E03.9 Hypothyroidism, unspecified (principal); I10 Essential (primary) hypertension; E55.9 Vitamin D deficiency, unspecified
CPT/HCPCS: 36415; 80061; 82043; 82306; 82570; 84436; 84443; 84481

== ENCOUNTER → 2024-06-25 | Outpatient (CLI) | payer MEDICARE, SELFPAY ==
--- NOTE | 2024-06-25 13:28 | BI_ITS ---
MAMMOGRAPHY - BILATERAL SCREENING REASON FOR EXAM: Female, 69 years old. Routine annual screening examination. PERTINENT HISTORY: Non-contributory. TECHNIQUE: Digital bilateral breast imelda (3D mammographic acquisition) in the CC and MLO projections. 2-D mediolateral oblique (MLO) and craniocaudad (CC) views of both breasts were obtained. CAD: Full Field Digital Mammography with Computer Added Detection was performed. COMPARISON: Comparison is made with prior study dated August 27, 2021 and June 13, 2019. FINDINGS: Breast Composition: The breasts are heterogeneously dense, which may obscure small masses. There are no dominant masses or suspicious calcifications. No other significant abnormalities are identified. There has been no significant change since the prior study. BI/SCRN MAMM (CAD)W/IMELDA BILAT IMPRESSION: Stable bilateral screening mammogram. Yearly follow-up mammogram recommended. (A) ASSESSMENT CATEGORY: BIRADS Category 1: Negative. A letter regarding these results will be sent to the patient by the facility within 30 days. Approximately 10% of breast cancers are not detected by mammography. A normal mammogram should not delay biopsy of a clinically suspicious abnormality. [id number] Electronically Signed: Jose Antonio Kumar MD at 14:26 EST ,
== END | disposition home or self-care (01) ==
LOC: OPBI 13:27
PROVIDERS: PCP Family Medicine; Referring Provider Family Medicine; Visit Provider Family Medicine
DX: Z12.31 Encounter for screening mammogram for malignant neoplasm of breast (principal)
CPT/HCPCS: 77063; 77067

== ENCOUNTER 2024-07-09 07:09 | Day surgery (SDC) | payer MEDICARE, SELFPAY ==
--- NOTE | 2024-07-06 10:47 | PAT.ANE_ITS ---
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 When Was Last Pacemaker Check QUESTION #4 FULL TEXT: You/Your Family Experience fever (hyperthermia) with Anesthesia Last Oral Intake Last Oral intake: Last Oral Intake NPO since Meds taken in AM with sips of water? Meds patient instructed to take am of surgery PONV PONV - hand tennis ball coverer: PONV - hand tennis ball coverer Female Yes 07/06/24 10:22 HX of Motion Sickness No 07/06/24 10:22 HX of N/V After Surgery No 07/06/24 10:22 Non-Smoker Yes 07/06/24 10:22 Duration of Surgery greater No 07/06/24 10:22 than 60 minutes Number of Risk Factors 2 07/06/24 10:22 PONV Score Moderate Risk 07/06/24 10:22 Height & Weight Height & Weight: Anesthesia: Height & Weight Height 5 ft 3 in 05/04/24 10:44 Respiratory Assessment Respiratory Assessment - hand tennis ball coverer: Respiratory Tract Infection Hx - hand tennis ball coverer Hx Respiratory Tract Infection No 07/06/24 10:22 STOP Sleep Apnea STOP Sleep Apnea - hand tennis ball coverer: STOP Sleep Apnea - hand tennis ball coverer Hx Hypertension Yes: CONTROLLED WITH MED 07/06/24 10:22 Hx Sleep Apnea No 07/06/24 10:22 CPAP BIPAP Do you snore loudly (louder No 07/06/24 10:22 than talking or can be heard Do you often feel tired/ No 07/06/24 10:22 fatigued/ sleepy during daytime? Has anyone observed you stop No 07/06/24 10:22 breathing during sleep? STOP Results Negative 07/06/24 10:22 QUESTION #5 FULL TEXT : Do you snore loudly (louder than talking or can be heard through closed doors)? Tobacco Use History Tobacco Use History - hand tennis ball coverer: Tobacco Use History - hand tennis ball coverer Tobacco Use Smoking Status Never smoker 07/06/24 10:22 Hx Tobacco Use No 07/06/24 10:22 Years Smoking Packs Smoked per Day Smoking Cessation Date was within the last 15 years Hx Smoking Cessation Date Hx Smoking Cessation Counseling Hematologic Medial History Hematologic Hx - hand tennis ball coverer: Hematologic Medical Hx - cloth sponger Hx of Blood Transfusion No 07/06/24 10:22 Hx of Transfusion in last 3 No 07/06/24 10:22 Months Date of Last Transfusion (if within last 3 months) Ever experience any problems No 07/06/24 10:22 with transfusion(s)? Specify any problems Hx of Preganancy in last 3 No 07/06/24 10:22 Months Nurse Filling Out Transfusion DSCHRIBER 07/06/24 10:22 & Questions: Date: 07/06/24 07/06/24 10:22 Time: 10:24 07/06/24 10:22 Patient unable to answer at this time (ie. confused, unrespo /Reproduction History /Reproductive History - hand tennis ball coverer: /Reproductive Hx- hand tennis ball coverer Hx Now No 07/06/24 10:22 Gestational Age (in weeks): EDC: Hx Hx Para Hx Section SAB No 07/06/24 10:22 [facility] Medical History (Updated 07/06/24 @ 10:31 by Arabella Thompson) Wears hearing aid Wears glasses Post-menopausal Arthritis Easy bruising Back pain Injury of head and neck Non-smoker Shortness of breath on exertion Leg cramps History of stress test History of echocardiogram History of pain when walking History of edema Cardiology follow-up encounter Personal history of colonic polyps Asthmatic bronchitis with acute exacerbation Hypothyroidism Essential (primary) hypertension PND (post-nasal drip) Migraine Non-productive cough Asthma Home Medications ?Medication ?Instructions ?Recorded ?Last Taken ?Type fluticasone propionate 50 2 spray intranasal QDAY PRN Nasal 10/19/18 Unknown History mcg/actuation nasal Congestion spray,suspension bisoprolol fumarate 5 mg tablet 5 mg PO QHS 11/13/19 Unknown History cholecalciferol (vitamin D3) 25 1,000 unit PO DAILY 11/13/19 Unknown History mcg (1,000 unit) tablet amitriptyline 25 mg tablet 75 mg PO QHS 30 days #90 tabs 05/26/20 Unknown History liothyronine 5 mcg tablet (Cytomel) 5 mcg PO DAILY 05/26/20 Unknown History benzonatate 200 mg capsule 200 mg PO TID PRN cough #90 caps 09/02/23 Unknown Rx fluticasone 500 mcg-salmeterol 50 1 inh inhalation BID #60 ea 10/12/23 Unknown Rx mcg/dose blistr powdr for inhalation (Wixela Inhub) ibuprofen 200 mg tablet 200 mg PO Q6H PRN pain 05/04/24 Unknown History levothyroxine 100 mcg tablet 100 mcg PO QDAY 90 days #90 tabs 05/04/24 Unknown History albuterol sulfate 90 mcg/actuation 2 puff inhalation Q6H PRN 06/08/24 Unknown Rx aerosol inhaler shortness of breath or wheezing #8.5 grams Allergy/AdvReac Type Severity Reaction Status Date / Time clarithromycin (From Biaxin) Allergy Nausea/Vom/ Verified 07/06/24 10:19 Diarrhea clavulanic acid (From Allergy Nausea Verified 07/06/24 10:19 Augmentin) Sulfa (Sulfonamide Allergy Hives Verified 07/06/24 10:19 Antibiotics) sulfacetamide Allergy Hives Verified 07/06/24 10:19 cefuroxime (From Ceftin) AdvReac Mild Nausea & Verified 07/06/24 10:19 Diarrhea erythromycin base AdvReac Nausea/Vom/ Verified 07/06/24 10:19 Diarrhea Penicillins (PCN) AdvReac Nausea/Vom/ Verified 07/06/24 10:19 Diarrhea Family History Father Cancer lung Brother Hypertension Cancer skin Brother Cancer lung Surgical History (Updated 07/06/24 @ 10:31 by Arabella Thompson) Hx of toe surgery Hx of colonoscopy History of sinus surgery History of carpal tunnel surgery History of left heart catheterization (05/30/17) H/O tubal ligation bunion surgery Social History (Updated 05/04/24 @ 10:27 by Betzaida Valentin) household members: spouse current occupational status: retired Smoking Status: Never smoker second hand exposure: No alcohol intake: never substance use type: does not use caffeine: No what type of physical activity do you participate in: none seatbelt use: always do you feel safe at home: Yes additional social history: Carlota 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
[2024-07-09] VITALS (7 sets, daily range): BP systolic 110–158; BP diastolic 56–78; PULSE 73–88; RESP 16; TEMP 36.2–36.5; O2SAT 98–100; BMI 34.2
--- NOTE | 2024-07-09 07:21 | H&P.OPEN ---
HPI - General General Date of Service: 07/09/24 HPI Narrative BRIAN FOSTER, is a 69 F who presents for screening colonoscopy. Patient last colonoscopy was 06/26/[address] Hernandez polyp was found. Recommended 5 years. Patient denies any chronic abdominal pain/nausea/vomiting/reflux. Patient has bowel movements daily/every other day denies any blood. [facility] Medical History Wears hearing aid Wears glasses Post-menopausal Arthritis Easy bruising Back pain Injury of head and neck Non-smoker Shortness of breath on exertion Leg cramps History of stress test History of echocardiogram History of pain when walking History of edema Cardiology follow-up encounter Personal history of colonic polyps Asthmatic bronchitis with acute exacerbation Hypothyroidism Essential (primary) hypertension PND (post-nasal drip) Migraine Non-productive cough Asthma Home Medications ?Medication ?Instructions ?Recorded ?Last Taken ?Type fluticasone propionate 50 2 spray intranasal QDAY PRN Nasal 10/19/18 Unknown History mcg/actuation nasal Congestion spray,suspension bisoprolol fumarate 5 mg tablet 5 mg PO QHS 11/13/19 07/08/24 History cholecalciferol (vitamin D3) 25 1,000 unit PO DAILY 11/13/19 Unknown History mcg (1,000 unit) tablet amitriptyline 25 mg tablet 75 mg PO QHS 30 days #90 tabs 05/26/20 Unknown History liothyronine 5 mcg tablet (Cytomel) 5 mcg PO DAILY 05/26/20 Unknown History benzonatate 200 mg capsule 200 mg PO TID PRN cough #90 caps 09/02/23 Unknown Rx fluticasone 500 mcg-salmeterol 50 1 inh inhalation BID #60 ea 10/12/23 Unknown Rx mcg/dose blistr powdr for inhalation (Wixela Inhub) ibuprofen 200 mg tablet 200 mg PO Q6H PRN pain 05/04/24 Unknown History levothyroxine 100 mcg tablet 100 mcg PO QDAY 90 days #90 tabs 05/04/24 Unknown History albuterol sulfate 90 mcg/actuation 2 puff inhalation Q6H PRN 06/08/24 Unknown Rx aerosol inhaler shortness of breath or wheezing #8.5 grams Allergy/AdvReac Type Severity Reaction Status Date / Time clarithromycin (From Biaxin) Allergy Nausea/Vom/ Verified 07/09/24 07:21 Diarrhea clavulanic acid (From Allergy Nausea Verified 07/09/24 07:21 Augmentin) Sulfa (Sulfonamide Allergy Hives Verified 07/09/24 07:21 Antibiotics) sulfacetamide Allergy Hives Verified 07/09/24 07:21 cefuroxime (From Ceftin) AdvReac Mild Nausea & Verified 07/09/24 07:21 Diarrhea erythromycin base AdvReac Nausea/Vom/ Verified 07/09/24 07:21 Diarrhea Penicillins (PCN) AdvReac Nausea/Vom/ Verified 07/09/24 07:21 Diarrhea Family History Father Cancer lung Brother Hypertension Cancer skin Brother Cancer lung Surgical History Hx of toe surgery Hx of colonoscopy History of sinus surgery History of carpal tunnel surgery History of left heart catheterization (05/30/17) H/O tubal ligation bunion surgery Social History household members: spouse current occupational status: retired Smoking Status: Never smoker second hand exposure: No alcohol intake: never substance use type: does not use caffeine: No what type of physical activity do you participate in: none seatbelt use: always do you feel safe at home: Yes additional social history: -Jacob 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) Past Medical/Surgical History Planned Operation Planned Operative Procedure(s): CSCOPE OA S.O.S: No Previous Hospitalizations/Surgeries HX Hospitalizations: No HX of Surgeries: BUNION SURGERY, TUBAL LIGATION, SINUPLASTY Any Problems With Anesthesia: Yes (SLOW TO AWAKEN) You/Your Family Experience Fever (Hyperthermia) With Anes: No Cholinesterase deficiency: No Cardiovascular Hx Chest Pain within Last 2 months: Yes Hx of Irregular Heartbeat and/or Afib: Yes Hx Heart Attack: No Hx Congestive Heart Failure: No Hx Rheumatic Fever: No Hx Hypertension: Yes (CONTROLLED WITH MED) Hx Internal Defibrillator: No Hx Pacemaker: No Hx Cardiac Catheterization: No Hx Cardiac Surgery/Stents/Etc.: No Hx Stress Test: Yes Hx Pain in Legs when Walking/Leg Cramps: Yes (RIGHT LEG PAIN D/T BACK ISSUES) Respiratory Chronic Cough: No HX of Shortness of Breath: Yes (IN THE PAST/RESOLVED WITH WEIGHT LOSS) Hoarseness: No Hx Chronic Obstructive Pulmonary Disease (COPD): No Hx Asthma: Yes Hx Emphysema: No Hx Sleep Apnea: No Hx Respiratory Tract Infection/Cold (presently): No Do You Snore Loudly (louder than talking or can be heard): No Do You Often Feel Tired/ Fatigued/ Sleepy Dring Daytime?: No Has Anyone Observed You Stop Breathing During Sleep?: No Result (for STOP score): Negative Hx Smoking: No Smoking Status: Never smoker Gastrointestinal Hx Gastrointestinal Disorders: No Hx Gastrointestinal Bleed: No Hx Ulcer: No Hx Hiatal Hernia: No Difficulty Chewing/Swallowing: No Special diet followed at home: Yes (Watches carbs) Hx Unplanned Weight Loss of 20#: No HX Unplanned Weight Gain of 20#: No Neurological Hx Seizures: No HX Syncope/Blackout Spells/Unconsciousness: No Hx Transient Ischemic Attacks (TIA): No Hx Multiple Sclerosis: No Hx Parkinson's Disease: No Hx Head/Neck Injury: No Hx Headaches: Yes Hx Back Injury/Pain: No Recent Onset of Speech Difficulty: No Restless Legs: No Does patient have nerve stimulator: No Blood Disorder Hx Leukemia: No Bleeding Tendencies: No Hx Deep Vein Thrombosis: No Hx High Cholesterol: No Blood Transmitted Disease: No Hx Hepatitis: No Hx Cirrhosis: No Hx Anemia: No Hx Blood Disorders: No Reproduction : No Is Patient Lactating: No Hx Hysterectomy: No Hx Tubal Ligation: No Are You Post Menopause: Yes Genitourinary Hx Renal Disease: No Hx Dialysis: No Musculoskeletal Hx Arthritis: Yes Hx Rheumatoid Arthritis: No Hx Gout: No Recent Onset of an Orthopedic Problem: No Endocrine Hx Diabetes: No Thyroid Disease: Yes (ON MED) Hx Steroid Therapy: Yes (PREDNISONE RECENTLY FOR BACK PAIN) Psycho/Social Hx Substance Use: No Hx Alcohol Use: No Hx Anxiety: Yes Hx Depression: Yes Mental Illness: No Hx Dementia: No Miscellaneous Hx Cancer: No Recent Exposure to Contagious Disease: No Hx of C-Diff: No Any Loose Teeth: No Allergies clarithromycin (From Biaxin) Allergy (Verified 07/09/24 07:21) Nausea/Vom/Diarrhea clavulanic acid (From Augmentin) Allergy (Verified 07/09/24 07:21) Nausea Sulfa (Sulfonamide Antibiotics) Allergy (Verified 07/09/24 07:21) Hives sulfacetamide Allergy (Verified 07/09/24 07:21) Hives cefuroxime (From Ceftin) Adverse Reaction (Mild, Verified 07/09/24 07:21) Nausea & Diarrhea erythromycin base Adverse Reaction (Verified 07/09/24 07:21) Nausea/Vom/Diarrhea Penicillins (PCN) Adverse Reaction (Verified 07/09/24 07:21) Nausea/Vom/Diarrhea Discharge Is Pt Admitted From a Intermediate, or a Residential: No After D/C, Where Do you Plan to Go: Return Home From the PAT History Number of Risk Factors: 5 Physical Exam Const alert, oriented x3 and no apparent distress HEENT normocephalic and head/scalp atraumatic Resp normal respiratory effort Cardio regular rate GI soft to palpation and non-tender; Negative for non-distended Palpation: Negative for guarding Extremity no clubbing, cyanosis or edema Skin no rashes or lesions noted Neuro CN's II-XII intact bilaterally Psych mental status grossly normal Assessment & Plan Assessment/Plan (1) Personal history of colonic polyps: Surgery Risks - Colonoscopy I discussed with the patient the risks of the procedure: Yes Risks Include but are not Limited To: Risks include but are not limited to: Bleeding, perforation requiring further surgery, inability to complete colonoscopy requiring barium enema.
--- NOTE | 2024-07-09 07:33 | PCM.PRE.AN2 ---
ASA Classification* ASA Classification ASA Classification: 2 Assessment & Plan Anesthesia* Anesthesia Assessment Anesthesia Assessment: Discussed sedation and/or anesthesia options, risks, benefits, and alternatives with patient/parents/legal guardian/POA. Questions invited. The patient/parents/legal guardian/POA seems to understand and agrees to proceed with anesthesia plan. Reviewed the physical assessment, medical history, allergy history and patient home medications list prior to surgery/procedure/anesthetic and documented any changes. Performed airway and anesthesia risk assessments. Anesthesia Type Anesthesia Type: MAC History Source History Obtained from:: Patient and Chart Anesthesia Focused Assessment* Temperature: 97.7 F Pulse Rate: 88 Blood Pressure: 158/78 Respiratory Rate: 16 Pulse Ox: 98 Oxygen Delivery Method: Room Air Airway Assessment Mouth opens: >3 cm Mallampati Score: III Teeth Condition: Caps/Crowns (Patient has several crowns. They are all tight.) Neck Range of motion (ROM): Limited ROM (Slight decrease in extension) Focused Labs Anesthesia Preop lab: CBC WBC 7.6 K/mm3 (4.4-11.0) 04/01/23 09:38 RBC 4.32 M/mm3 (4.2-5.4) 04/01/23 09:38 Hgb 13.2 g/dL (12.0-15.0) 04/01/23 09:38 Hct 41.5 % (37-47) 04/01/23 09:38 Plt Count 365 K/mm3 (150-450) 04/01/23 09:38 CHEMISTRY Potassium 4.0 mmol/L (3.5-5.1) 04/01/23 09:38 Sodium 139 mmol/L (136-145) 04/01/23 09:38 Magnesium 2.2 mg/dL (1.6-2.6) 10/19/18 09:13 BUN 9 mg/dL (7-18) 04/01/23 09:38 Creatinine 0.88 mg/dL (0.55-1.02) 04/01/23 09:38 Glucose 75 mg/dL (74-106) 04/01/23 09:38 TSH 0.041 uIU/mL (0.358-3.740) L 04/06/24 11:09 COAG Pre-Assessment Diagnosis/Proposed Procedure Planned Operative Procedure(s): CSCOPE OA Anesthesia History 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 When Was Last Pacemaker Check QUESTION #4 FULL TEXT: You/Your Family Experience fever (hyperthermia) with Anesthesia Last Oral Intake Last Oral intake: Last Oral Intake NPO since 05:30 07/09/24 07:23 Meds taken in AM with sips of water? Meds patient instructed to take am of surgery Any additional information?: Yes NPO since: 05:00 (Patient finished prep at 5 AM.) PONV PONV - concrete float maker: PONV - concrete float maker Female Yes 07/06/24 10:22 HX of Motion Sickness No 07/06/24 10:22 HX of N/V After Surgery No 07/06/24 10:22 Non-Smoker Yes 07/06/24 10:22 Duration of Surgery greater No 07/06/24 10:22 than 60 minutes Number of Risk Factors 2 07/06/24 10:22 PONV Score Moderate Risk 07/06/24 10:22 Height & Weight Height & Weight: Anesthesia: Height & Weight Height 5 ft 3 in 07/09/24 07:23 Weight: 87.543 kg 07/09/24 07:23 Body Mass Index (BMI) 34.2 07/09/24 07:23 Respiratory Assessment Respiratory Assessment - concrete float maker: Respiratory Tract Infection Hx - concrete float maker Hx Respiratory Tract Infection No 07/09/24 07:22 STOP Sleep Apnea STOP Sleep Apnea - concrete float maker: STOP Sleep Apnea - concrete float maker Hx Hypertension Yes: CONTROLLED WITH MED 07/09/24 07:22 Hx Sleep Apnea No 07/09/24 07:22 CPAP BIPAP Do you snore loudly (louder No 07/09/24 07:22 than talking or can be heard Do you often feel tired/ No 07/09/24 07:22 fatigued/ sleepy during daytime? Has anyone observed you stop No 07/09/24 07:22 breathing during sleep? STOP Results Negative 07/09/24 07:22 QUESTION #5 FULL TEXT : Do you snore loudly (louder than talking or can be heard through closed doors)? Tobacco Use History Tobacco Use History - concrete float maker: Tobacco Use History - concrete float maker Tobacco Use Smoking Status Never smoker 07/09/24 07:22 Hx Tobacco Use No 07/06/24 10:22 Years Smoking Packs Smoked per Day Smoking Cessation Date was within the last 15 years Hx Smoking Cessation Date Hx Smoking Cessation Counseling Hematologic Medial History Hematologic Hx - concrete float maker: Hematologic Medical Hx - zyglo technician Hx of Blood Transfusion No 07/06/24 10:22 Hx of Transfusion in last 3 No 07/06/24 10:22 Months Date of Last Transfusion (if within last 3 months) Ever experience any problems No 07/06/24 10:22 with transfusion(s)? Specify any problems Hx of Preganancy in last 3 No 07/06/24 10:22 Months Nurse Filling Out Transfusion DSCHRIBER 07/06/24 10:22 & Questions: Date: 07/06/24 07/06/24 10:22 Time: 10:24 07/06/24 10:22 Patient unable to answer at this time (ie. confused, unrespo /Reproduction History /Reproductive History - concrete float maker: /Reproductive Hx- concrete float maker Hx Now No 07/09/24 07:22 Gestational Age (in weeks): EDC: Hx Hx Para Hx Section SAB No 07/06/24 10:22 PFSH Medical History Wears hearing aid Wears glasses Post-menopausal Arthritis Easy bruising Back pain Injury of head and neck Non-smoker Shortness of breath on exertion Leg cramps History of stress test History of echocardiogram History of pain when walking History of edema Cardiology follow-up encounter Personal history of colonic polyps Asthmatic bronchitis with acute exacerbation Hypothyroidism Essential (primary) hypertension PND (post-nasal drip) Migraine Non-productive cough Asthma Home Medications ?Medication ?Instructions ?Recorded ?Last Taken ?Type fluticasone propionate 50 2 spray intranasal QDAY PRN Nasal 10/19/18 Unknown History mcg/actuation nasal Congestion spray,suspension bisoprolol fumarate 5 mg tablet 5 mg PO QHS 11/13/19 07/08/24 History cholecalciferol (vitamin D3) 25 1,000 unit PO DAILY 11/13/19 Unknown History mcg (1,000 unit) tablet amitriptyline 25 mg tablet 75 mg PO QHS 30 days #90 tabs 05/26/20 Unknown History liothyronine 5 mcg tablet (Cytomel) 5 mcg PO DAILY 05/26/20 Unknown History benzonatate 200 mg capsule 200 mg PO TID PRN cough #90 caps 09/02/23 Unknown Rx fluticasone 500 mcg-salmeterol 50 1 inh inhalation BID #60 ea 10/12/23 Unknown Rx mcg/dose blistr powdr for inhalation (Wixela Inhub) ibuprofen 200 mg tablet 200 mg PO Q6H PRN pain 05/04/24 Unknown History levothyroxine 100 mcg tablet 100 mcg PO QDAY 90 days #90 tabs 05/04/24 Unknown History albuterol sulfate 90 mcg/actuation 2 puff inhalation Q6H PRN 06/08/24 Unknown Rx aerosol inhaler shortness of breath or wheezing #8.5 grams Allergy/AdvReac Type Severity Reaction Status Date / Time clarithromycin (From Biaxin) Allergy Nausea/Vom/ Verified 07/09/24 07:21 Diarrhea clavulanic acid (From Allergy Nausea Verified 07/09/24 07:21 Augmentin) Sulfa (Sulfonamide Allergy Hives Verified 07/09/24 07:21 Antibiotics) sulfacetamide Allergy Hives Verified 07/09/24 07:21 cefuroxime (From Ceftin) AdvReac Mild Nausea & Verified 07/09/24 07:21 Diarrhea erythromycin base AdvReac Nausea/Vom/ Verified 07/09/24 07:21 Diarrhea Penicillins (PCN) AdvReac Nausea/Vom/ Verified 07/09/24 07:21 Diarrhea Family History Father Cancer lung Brother Hypertension Cancer skin Brother Cancer lung Surgical History Hx of toe surgery Hx of colonoscopy History of sinus surgery History of carpal tunnel surgery History of left heart catheterization (05/30/17) H/O tubal ligation bunion surgery Social History household members: spouse current occupational status: retired Smoking Status: Never smoker second hand exposure: No alcohol intake: never substance use type: does not use caffeine: No what type of physical activity do you participate in: none seatbelt use: always do you feel safe at home: Yes additional social history: -Jacob 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
--- NOTE | 2024-07-09 08:30 | COLBX_PTH ---
PATIENT: BRIAN FOSTER LOC: EN U#:[id number] AGE/SX: 69/F ROOM: RE07/09/[address]: Dr. Karen Muse MD : [id number] BED: DIS: 07/09/2024 SPEC #: [id number] RECD: 07/09/24 13:07 STATUS: LINDA ROSALBA #: [id number] CORBIN: 07/09/24 08:[address]: Karen Muse DEPT: SURGICAL PATHOLOGY RECD BY: Phil Burciaga ENTERED: 07/09/24 13:57 SP TYPE: COLON BX OTHR DR: Dr. Elias Epps MD Tissues: Cecum, NOS Procedures: Surgery Specimen Level IV HEADER OPERATION: Colonoscopy biopsy PRE-OP DIAGNOSIS: Personal history of colonic polyps TISSUE SUBMITTED: Cecum polyp biopsy MICROSCOPIC DIAGNOSIS Cecum polyp, biopsy: Fragments of tubular adenoma. JANETTE/ 07/12/2024 MICROSCOPIC DESCRIPTION Slides are reviewed. GROSS DESCRIPTION Received in fixative is one container labeled with the patient's name and designated Cecum polyp biopsy. The specimen consists of multiple irregular fragments of light jeff soft tissue that in aggregate measure 0.6 x 0.2 x 0.1 cm. The specimen is totally submitted in one cassette. MS/mr 07/10/2024 TC:1 CPT:86403
--- NOTE | 2024-07-09 09:48 | OP.COLON_ITS ---
Patient Name: Melissa Burns Procedure Date: 07/09/2024 9:17 AM Date of : 1955 Age: 69 Procedure: Colonoscopy Indications: High risk colon cancer surveillance: Personal history of colonic polyps Providers: Karen Muse MD Referring MD: Elias Epps Medicines: Monitored Anesthesia Care Patient Profile: This is a 69 year old female. Last Colonoscopy: June 2019. Complications: No immediate complications. Procedure: Pre-Anesthesia Assessment: - Prior to the procedure, a History and Physical was performed, and patient medications and allergies were reviewed. The patient's tolerance of previous anesthesia was also reviewed. The risks and benefits of the procedure and the sedation options and risks were discussed with the patient. All questions were answered, and informed consent was obtained. Prior Anticoagulants: The patient has taken no anticoagulant or antiplatelet agents. ASA Grade Assessment: Per anesthesia. After reviewing the risks and benefits, the patient was deemed in satisfactory condition to undergo the procedure. After I obtained informed consent, the scope was passed under direct vision. Throughout the procedure, the patient's blood pressure, pulse, and oxygen saturations were monitored continuously. The Colonoscope was introduced through the anus and advanced to the cecum, identified by the appendiceal orifice, ileocecal valve and palpation. The colonoscopy was performed without difficulty. The patient tolerated the procedure well. The quality of the bowel preparation was good. Scope In: 9:26:22 AM Scope Withdrawal Time 0 hours 7 minutes 40 seconds Scope Out: 9:45:01 AM Total Procedure Duration Time 0 hours 18 minutes 39 seconds Findings: The perianal and digital rectal examinations were normal. A less than 5 mm polyp was found in the cecum. The polyp was sessile. The polyp was removed with a cold biopsy forceps. Resection and retrieval were complete. Multiple small-mouthed diverticula were found in the sigmoid colon. The exam was otherwise without abnormality on direct and retroflexion views. Impression: - One less than 5 mm polyp in the cecum, removed with a cold biopsy forceps. Resected and retrieved. - Diverticulosis in the sigmoid colon. - The examination was otherwise normal on direct and retroflexion views. Recommendation: - Discharge patient to home. - Resume previous diet. - Continue present medications. - Await pathology results. - Repeat colonoscopy in 5 years for surveillance based on pathology results. Procedure Code(s): --- Professional --- 79032, PT, Colonoscopy, flexible; with biopsy, single or multiple Diagnosis Code(s): --- Professional --- Z86.010, Personal history of colonic polyps D12.0, Benign neoplasm of cecum K57.30, Diverticulosis of large intestine without perforation or abscess without bleeding CPT copyright 2021 [employer]. All rights reserved. The codes documented in this report are preliminary and upon administrative law judge review may be revised to meet current compliance requirements. MD Karen Gates MD 07/09/2024 9:48:18 AM This report has been signed electronically. Number of Addenda: 0 Note Initiated On: 07/09/2024 9:17 AM
--- NOTE | 2024-07-09 09:48 | OP.CCLET_ITS ---
07/09/2024 Elias Epps [address] [facility] [address] [address] [facility] [address] [place] [address] Re : Colonoscopy procedure for Melissa Burns Dear Dr. Epps This procedure was performed on Tuesday, July 09, 2024. My impressions and recommendations are as follows: Impressions : - One less than 5 mm polyp in the cecum, removed with a cold biopsy forceps. Resected and retrieved. - Diverticulosis in the sigmoid colon. - The examination was otherwise normal on direct and retroflexion views. Recommendations : - Discharge patient to home. - Resume previous diet. - Continue present medications. - Await pathology results. - Repeat colonoscopy in 5 years for surveillance based on pathology results. My findings are described in the full procedure note, which is enclosed. If I can be of further assistance, please feel free to contact me at Doctor phone number(s): , Work: . Sincerely, MD Karen Gates MD 07/09/2024 9:48:18 AM This report has been signed electronically.
--- NOTE | 2024-07-09 09:54 | PCM.POST.ANE ---
Anesthesia: Postop Eval I Current Vital Signs Temperature: 97.1 F Pulse Rate: 76 Blood Pressure: 110/56 Respiratory Rate: 16 Pulse Ox: 100 Oxygen Delivery Method: Room Air Assessment Airway patent: Yes Spontaneous unlabored respirations: Yes Mental status: Awake and Calm nausea: No Vomiting: No Anesthesia Complication: No Fluid Hydration Crystalloid volume administer (ml): 60 Total IV fluid infused: 60 Progress Note Anesthesia document: Postop Eval 1 completed: Yes
--- NOTE | 2024-07-09 10:46 | PCM.POSTANE2 ---
Anesthesia Postop Eval I Sum Postop Eval Completion status Anesthesia document: Postop Eval 1 completed: Yes Anesthesia Postop Eval I Summary Anesthesia Postop Eval I Summary: Anesthesia Postop Eval I: Assessment Summary Airway patent Yes 07/09/24 09:55 [email or web address] Spontaneous unlabored Yes 07/09/24 09:55 [email or web address] respirations Mental status Awake,Calm 07/09/24 09:55 [email or web address] nausea No 07/09/24 09:55 [email or web address] Vomiting No 07/09/24 09:55 [email or web address] Anesthesia Postop Eval I: Fluid Summary Crystalloid volume administer 60 07/09/24 09:55 [email or web address] (ml) Colloids volume administered ( ml) Blood Product volume administered (ml) Total IV fluid infused 60 07/09/24 09:55 [email or web address] Anesthesia Postop Eval I: Summary Notes Anesthesia Complication No 07/09/24 09:55 [email or web address] Anesthesia Complication Comment: Post-operative progress note Anesthesia: Postop Eval II Evaluation Mental status: Awake and Calm Pain Level: 0 nausea: No Vomiting: No Complications Anesthesia Complication: No
== END 2024-07-09 10:37 | disposition home or self-care (01) ==
LOC: EN 07:09 → AC 07:10
PROVIDERS: PCP Family Medicine; Referring Provider Family Medicine; Visit Provider Surgery
PROC: 0DJD8ZZ Inspection of Lower Intestinal Tract, Via Natural or Artificial Opening Endoscopic (ICD-10-PCS; CPT 45378; principal; 2024-07-09 08:25)
DX: Z12.11 Encounter for screening for malignant neoplasm of colon (principal); D12.0 Benign neoplasm of cecum; K57.30 Diverticulosis of large intestine without perforation or abscess without bleeding; I10 Essential (primary) hypertension; Z79.890 Hormone replacement therapy; Z86.0100 Personal history of colon polyps, unspecified; J45.909 Unspecified asthma, uncomplicated; Z79.51 Long term (current) use of inhaled steroids; Z79.899 Other long term (current) drug therapy; E03.9 Hypothyroidism, unspecified; Z98.51 Tubal ligation status
CPT/HCPCS: 45380; 88305; J2405

== ENCOUNTER → 2024-10-01 | Outpatient (CLI) | payer MEDICARE, SELFPAY ==
[2024-10-01 18:37] LABS: Free T3 3.2 pg/mL (2.18-3.98); Thyroid Stim Hormone (TSH) 0.144 uIU/mL (0.300-4.200)
== END | disposition home or self-care (01) ==
LOC: MFPLAB 11:32
PROVIDERS: PCP Family Medicine; Referring Provider Family Medicine; Visit Provider Family Medicine
DX: E03.9 Hypothyroidism, unspecified (principal)
CPT/HCPCS: 36415; 84439; 84443; 84481

== ENCOUNTER → 2024-12-10 | Outpatient (CLI) | payer MEDICARE, SELFPAY ==
[2024-12-10 12:57] LABS: ALB/GLOB Ratio 1.4 RATIO (0.9-2.4); AST(SGOT) 23 U/L (<=31); Alanine Aminotransfer ALT/SGPT 15 U/L (<=34); Albumin, Serum 4.2 g/dL (3.4-4.8); Alkaline Phosphatase 91 U/L (35-104); Anion Gap 11 (5-15); BUN 9 mg/dL (4-19); BUN/Creat Ratio 10.1 RATIO (10-20); Calcium,Total 9.8 mg/dL (7.6-11.0); Carbon Dioxide 23.8 mmol/L (21.0-32.0); Chloride 105 mmol/L (98-108); EST Glomerular Filtration Rate 69 (>60); Free T3 3.6 pg/mL (2.18-3.98); Globulin 2.9 g/dL (2.2-4.2); Glucose 95 mg/dL (70-99); Lipase 23 U/L (13-75); Potassium 3.6 mmol/L (3.3-5.1); Protein, Total 7.1 g/dL (5.9-8.4); Sodium Level 140 mmol/L (133-145); Total Bilirubin 0.36 mg/dL (0.00-1.30)
[2024-12-10 13:55] LABS: Absolute Lymphocyte Count 2.52 X10^3/uL (0.83-4.51); Absolute Neutrophil Count 4.7 X10^3/uL (2.0-7.7); Basophil# 0.08 X10^3/uL; Basophil% 0.9 % (0-1); Eosinophil# 0.78 X10^3/uL; Eosinophils% 8.8 % (0-5); Hematocrit 40.8 % (37-47); Hemoglobin 13.6 g/dL (12.0-15.0); Lymphocyte # 2.52 X10^3/ul (0.83-4.51); Lymphocyte % 28.5 % (19-41); Mean Corp Hgb Conc 33.3 g/dL (32-36); Mean Corpuscular Hgb 31.3 pg (27.0-32.0); Mean Corpuscular Volume 93.8 fL (81-99); Mean Platelet Vol. 11.5 fl (6.2-12.0); Monocyte# 0.72 X10^3/uL; Monocyte% 8.1 % (0-10); NRBC Flagged by Analyzer 0 % (0-5); Neutrophil # 4.72 X10^3/uL (2.7-7.7); Neutrophil % 53.4 % (47-70); Platelet Count 325 K/mm3 (150-450); RBC Distribution Width SD 44.5 fl (35.1-43.9); Red Blood Count 4.35 M/mm3 (4.2-5.4); White Blood Count 8.9 K/mm3 (4.4-11.0)
== END | disposition home or self-care (01) ==
LOC: MTLAB 10:09
PROVIDERS: PCP Family Medicine; Referring Provider Family Medicine; Visit Provider Family Medicine
DX: E03.9 Hypothyroidism, unspecified (principal); E66.811 Obesity, class 1
CPT/HCPCS: 36415; 80053; 83690; 84439; 84443; 84481; 85025

== ENCOUNTER → 2025-02-21 | Outpatient (CLI) | payer MEDICARE, SELFPAY ==
[2025-02-21 12:54] LABS: AST(SGOT) 25 U/L (<=31); Alanine Aminotransfer ALT/SGPT 18 U/L (<=34); Albumin, Serum 4.2 g/dL (3.4-4.8); Alkaline Phosphatase 103 U/L (35-104); Anion Gap 10 (5-15); BUN 13 mg/dL (4-19); BUN/Creat Ratio 13.3 RATIO (10-20); Calcium,Total 10.1 mg/dL (7.6-11.0); Carbon Dioxide 25.5 mmol/L (21.0-32.0); Chloride 105 mmol/L (98-108); Free T3 3.1 pg/mL (2.18-3.98); Globulin 3.1 g/dL (2.2-4.2); Glucose 84 mg/dL (70-99); Lipase 18 U/L (13-75); Potassium 4.3 mmol/L (3.3-5.1)
--- OUTSIDE RECORDS SUMMARY | 2025-02-21 18:27 | XMS RPT_ITS | CCD ---
Author Organization [facility] Care Team Providers Care Professor Of Social Work Name Role Phone Pcp, No Primary Care Provider Unavailabl e Unavailable Primary Care Provider Unavailabl e Dr. Elias Epps Primary Care Provider Dr. Elias Epps Referring Provider KEITH Farrar Attending Provider Dr. Elias Epps Primary Care Provider Dr. Elias Epps Referring Provider Dr. Gerald Yanez Attending Provider Dr. Elias Epps MD Primary Care Provider Dr. Elias Epps MD Attending Provider Dr. Elias Epps MD Referring Provider Almaz SALTER, Dr. Jones Attending Provider Dr. Karen Muse MD Other Provider [phone] Elias Epps Attending Unavailable Epps, Elias Referring Unavailable Epps, Elias Primary Care Unavailable Betzaida Valentin Attending Unavailable Epps, Elias Primary Care Unavailable Epps, Elias Primary Care Unavailable She DU, Xena Attending Unavailable Epps, Elias Referring Unavailable Karen Muse Attending Unavailable Epps, Elias Referring Unavailable Epps, Elias Primary Care Unavailable Epps, Elias Attending Unavailable Epps, Elias Primary Care Unavailable Karen Muse Consulting Unavailable Karen Muse Attending Unavailable Epps, Elias Referring Unavailable Epps, Elias Primary Care Unavailable Epps, Elias Attending Unavailable Epps, Elias Referring Unavailable Epps, Elias Primary Care Unavailable Epps, Elias Attending Unavailable Epps, Elias Referring Unavailable Epps, Elias Primary Care Unavailable Dr. Elias Epps MD Primary Care Provider Dr. Elias Epps MD Attending Provider Mich SALTER, Dr. Griffin Referring Provider Allergies Allergy Classification Reported Allergen(s) Allergy Type Date of Onset Reaction(s) Facility (9 sources) Clarithromycin; Translations: [CLARITHROMYCIN] Drug Allergy 09-14-19 14 GI Upset [facility] (5 sources) Erythromycin; Translations: [ERYTHROMYCIN] Drug Allergy 09-14-19 14 GI Upset [facility] (3 sources) Sulfonamides (Antibiotic); Translations: [SULFA (SULFONAMIDE ANTIBIOTICS)] Propensity to adverse reactions 08-31-19 07 [facility] Work Phone: (3 sources) Amoxicillin Drug Allergy 09-18-19 21 Unknown [facility] (6 sources) Cefuroxime Drug Allergy 09-18-19 21 Nausea & Diarrhea [facility] (6 sources) Clavulanate Drug Allergy 09-18-19 21 Unknown, Nausea [facility] (6 sources) Penicillins Propensity to adverse reactions 09-18-19 21 Nausea/Vom/Nancy rrhea [facility] (6 sources) Sulfacetamide Drug Allergy 09-18-19 21 Unknown, [facility] (6 sources) Sulfonamides (Antibiotic) Allergy to substance 09-18-19 [facility] (1 source) Cefuroxime Drug Allergy 07-09-20 [facility] (1 source) Clarithromycin Drug Allergy 07-09-20 24 [facility] (1 source) Clavulanate Drug Allergy 07-09-20 [facility] (1 source) Erythromycin Drug Allergy 07-09-20 24 [facility] (1 source) Penicillins Drug allergy (disorder) 07-09-20 24 [facility] (1 source) Sulfacetamide Drug Allergy 07-09-20 24 [facility] (1 source) Sulfonamides (Antibiotic) Drug allergy (disorder) 07-09-20 [facility] Repository Medications Current Medications Medication Drug Class(es) Dates Sig (Normalized) Sig (Original) [id number] 200 actuat albuterol 0.09 mg/actuat metered dose inhaler (5 sources) beta2-Adrenergic Agonist Start: 08-31-2023 End: 06-08-2024 Albuterol Sulfate 90 mcg/actuation HFA aerosol inhaler Active 2 NMA INHALATION EVERY 6 HOURS as needed for shortness of breath or wheezing 8.5 June 08, 2024 2:38pm Start: 08-31-2023 take 1 puff(s) by in halation every six hours Albuterol Sulfate Active 2 PUFF INHALATION EVERY 6 HOURS August 31, 2023 1:00am amoxicillin 875 mg / clavulanate 125 mg oral tablet (1 source) Penicillin-class Antibacterial Start: 05-15-2022 End: 05-20-2022 take 1 tablet by mouth twice daily amoxicillin-clavulanic acid (AUGMENTIN) 875-125 mg per tablet Take 1 tablet by mouth twice daily for 5 days. 10 tablet 0 05/15/2022 05/20/2022 Active Comment on above: Take 1 tablet by mouth twice daily for 5 days. benzonatate 200 mg oral capsule (5 sources) Non-narcotic Antitussive Start: 09-02-2023 take 1 capsule by mouth three times daily as needed for cough Benzonatate 200 mg capsule Active 200 mg PO THREE TIMES A DAY as needed for cough 90 September 02, 2023 1:00am Start: 08-15-2016 take [address] [facility] three times daily as needed benzonatate (TESSALON PERLE) 100 mg capsule Indications: Sinobronchitis Take 1-2 capsules by mouth three times daily as needed. 30 capsule 0 08/15/2016 Active Comment on above: Take 1-2 capsules by mouth three times daily as needed. bisoprolol fumarate 5 mg oral tablet (8 sources) beta-Adrenergic Mitch Start: 8 take 1 tablet by mouth at bedtime Bisoprolol Fumarate 5 mg tablet Active 5 mg PO AT BEDTIME November 13, 2019 12:00am Comment on above: bisoprolol fumarate 5 mg tablet Active 5 MG daily 30 November 08, 2017 1:38pm brompheniramine maleate 0.2 mg/ml / pseudoephedrine hydrochloride 3 mg/ml oral solution (1 source) alpha-Adrenergic Agonist Start: 3 take 5 mL by mouth four times daily brompheniramine-ps eudoephedrine (RYNEX PSE,VALU-DIAN) 1-15 mg/5 mL liqd Take 5 mL by mouth four times daily. 473 mL 0 08/13/2022 Active Start: 08-13-2022 take 5 mL by mouth four times daily brompheniramine-pseudoephedrine (RYNEX PSE,VALU-DIAN) 1-15 mg/5 mL liqd Take 5 mL by mouth four times daily. 473 mL 0 08/13/2022 Active Comment on above: Take 5 mL by mouth f our times daily. cholecalciferol 0.025 mg oral tablet (6 sources) Vitamin D Start: 11-13-19 take 1 tablet by mouth once daily Cholecalciferol (Vitamin D3) 25 mcg (1,000 unit) tablet Active 1000 U PO DAILY November 13, 2019 12:00am Start: 11-13-2019 take 2000 [IU] by [facility] once daily Cholecalciferol (Vitamin D3) Active 2000 UNIT PO DAILY November 13, 2019 12:00am fluticasone propionate 0.05 mg/actuat metered dose nasal spray (14 sources) Corticosteroid Start: 10-10-2017 End: 10-19-2018 Fluticasone Propionate 1 SPRAY spray,suspension Active 2 NMA INTRANASAL daily as needed for Nasal Congestion October 19, 2018 1:11pm administer into each nostril Start: 10-10-2017 End: 10-19-2018 take 1 spray(s) nasal route once daily Fluticasone Propionate Active 2 SPRAY INTRANASAL daily October 19, 2018 1:11pm administer into each nostril take 2 spray(s) nasa l route once daily Fluticasone Furoate 27.5 mcg/actuation nasal spray Use 2 Sprays in each nostril once daily. 0 Active Comment on above: Use 2 Sprays in each nostril once daily. Fluticasone Propion-Salmeterol (2 sources) Corticosteroid, beta2-Adrenergic Agonist Start: 10-12-19 24 Fluticasone Propion-Salmeterol (Wixela Inhub) 500-50 mcg/dose blister with device Active 1 NMA INHALATION TWICE A DAY 60 October 12, 2023 12:00am ibuprofen 200 mg oral tablet (2 sources) Nonsteroidal Anti-inflammatory Drug Start: 05-04-20 24 take 1 tablet by mouth every six hours as needed for pain Ibuprofen 200 mg tablet Active 200 mg PO EVERY 6 HOURS as needed for pain May 04, 2024 12:00am levothyroxine sodium 0.1 mg oral tablet (19 sources) l-Thyroxine Start: 05-04-20 take 1 tablet by mouth once daily Levothyroxine 100 mcg tablet Active 100 ug PO daily 90 May 04, 2024 10:31am Start: 08-31-2023 End: 05-04-2024 Levothyroxine 100 mcg tablet Discontinued 112 ug PO daily 101 August 31, 2023 8:42am May 04, 2024 10:34am Start: 08-31-2023 take 112 ug by mouth once daily Levothyroxine Active 112 MCG PO daily 101 August 31, 2023 8:42am Start: 11-08-2017 End: 08-31-2023 take 1 tablet by mouth once daily Levothyroxine 100 mcg tablet Discontinued 100 ug PO daily November 08, 2017 12:00am August 31, 2023 8:45am Start: 10-05-2013 End: 11-08-2017 take 1 tablet by mouth once daily Levothyroxine 112 MCG tablet Discontinued 112 ug PO DAILY May 27, 2017 1:00am November 08, 2017 1:36pm Comment on above: Take 1 tablet by [facility] once daily. liothyronine sodium 0.005 mg oral tablet (8 sources) l-Triiodothyroni ne Start: 2016 take 1 tablet by mouth once daily Liothyronine (Cytomel) 5 mcg tablet Active 5 ug PO DAILY May 26, 2020 1:00am Completed/Discontinued Medications Medication Drug Class(es) Dates Sig (Normalized) Sig (Original) acetaminophen 300 mg / codeine phosphate 30 mg oral tablet (6 sources) Opioid Agonist Start: 10-24-2018 End: 10-31-2018 Acetaminophen-Codei ne 1 TABLET tablet Discontinued 1 {tbl} PO EVERY 4 HOURS NEEDED as needed for Pain 06 02October 24, 2018 12:00am October 30, 2018 12:00am October 31, 2018 12:11am Start: 10-24-2018 End: 10-31-2018 take 1 tablet by mouth every four hours as needed Acetaminophen-Codeine Discontinued 1 TABLET PO EVERY 4 HOURS NEEDED 06 02October 24, 2018 12:00am October 31, 2018 12:11am amitriptyline hydrochloride 75 mg oral tablet (14 sources) Tricyclic Antidepressant Start: 04-26-2022 amitriptyline (ELAVIL) 75 mg tablet Start: 05-26-2020 take 3 tablets by mo ut at bedtime Amitriptyline 25 mg tablet Active 75 mg PO AT BEDTIME 90 May 26, 2020 2:58pm Start: 05-26-2020 take 75 mg by mouth at bedtime Amitriptyline Active 75 MG PO AT BEDTIME 90 May 26, 2020 2:58pm Start: 11-08-2017 End: 05-26-2020 take 1 tablet by mouth at bedtime Amitriptyline 25 mg tablet Discontinued 25 mg PO AT BEDTIME 30 November 08, 2017 12:00am May 26, 2020 2:58pm aspirin 81 mg delayed release oral tablet (6 sources) Platelet Aggregation Inhibitor, Nonsteroidal Anti-inflammatory Drug Start: 05-30-2017 End: 11-08-2017 take 1 tablet by mouth once daily Aspirin 81 MG tablet Discontinued 81 mg PO DAILY@0800 May 30, 2017 1:00am November 08, 2017 1:36pm aspirin 325 mg / butalbital 50 mg / caffeine 40 mg oral capsule (8 sources) Platelet Aggregation Inhibitor, Barbiturate, Nonsteroidal Anti-inflammatory Drug, Central Nervous System Stimulant, Methylxanthine Start: 05-27-2017 End: 11-08-2017 Butalbital-Aspirin -Caffeine 1 EACH capsule Discontinued 1 NMA PO DAILY as needed for Pain May 27, 2017 1:00am November 08, 2017 1:40pm Start: 05-27-2017 End: 11-08-2017 Parwekostd-Espdrby-Cnwaegaj Discontinued 1 EACH PO DAILY May 27, 2017 1:00am November 08, 2017 1:40pm Start: 08-31-2006 FIORINAL 325 M G-40 MG-50 MG CAP use as directed 2 at night for migraines 0 08/31/2006 Active Comment on above: use as directed 2 at night for migraines azithromycin 250 mg oral tablet (5 sources) Macrolide Antimicrobial Start: 08-28-19 End: 08-31-19 24 take 2-5 tablets by mouth once daily Azithromycin 250 mg tablet Discontinued 0 PO .COMPLEX 6 August 28, 2022 1:00am August 31, 2023 8:41am take 500 mg today (day 1), then 250 mg for 4 days (days 2-5) PO BUDESONIDE/FORMOTEROL FUMARATE (SYMBICORT INHALATION) (2 sources) BUDESONIDE/FORMO TERO L FUMARATE (SYMBICORT INHALATION) Inhale as instructed. 0 Active Comment on above: Inhale as instructed . cetirizine hydrochloride 10 mg oral tablet (4 sources) Histamine-1 Receptor Antagonist Start: 10-12-19 End: 07-06-20 take 1 tablet by mouth once daily as needed Cetirizine 10 mg tablet Discontinued 10 mg PO DAILY as needed for allergy symptoms October 12, 2023 9:04am July 06, 2024 11:20am ciprofloxacin 250 mg oral tablet (12 sources) Quinolone Antimicrobial Start: 03-31-20 End: 04-05-20 take 1 tablet by mouth twice daily Ciprofloxacin Hcl 250 mg tablet Discontinued 250 mg PO TWICE A DAY March 31, 2018 12:00am April 05, 2018 2:19pm Start: 10-10-2017 End: 11-08-2017 take 1 tablet by mouth twice daily Ciprofloxacin Hcl (Cipro) 500 mg tablet Discontinued 500 mg PO TWICE A DAY October 10, 2017 12:00am November 08, 2017 1:40pm clopidogrel 75 mg oral tablet (6 sources) P2Y12 Platelet Inhibitor Start: 05-30-2017 End: 11-08-2017 take 1 tablet by mouth once daily Clopidogrel 75 MG tablet Discontinued 75 mg PO DAILY May 30, 2017 1:00am November 08, 2017 1:40pm codeine phosphate 2 mg/ml / guaiFENesin 20 mg/ml oral solution (4 sources) Opioid Agonist Start: 07-10-2016 take 5-10 mL by mouth four times daily as needed for cough codeine-guaiFENesin (ROBITUSSIN AC) 10-100 mg/5 mL syrup Indications: Sinobronchitis Take 5-10 mL by mouth four times daily as needed for Cough. May cause drowsiness. 120 mL 0 08/15/2016 Active Comment on above: Take 5-10 mL by mout h four times daily as needed for Cough. May cause drowsiness. doxycycline monohydrate 100 mg oral capsule (3 sources) Tetracycline-cla ss Drug Start: 11-28-2023 End: 01-17-2024 take 1 capsule by mouth twice daily Doxycycline Monohydrate 100 mg capsule Discontinued 100 mg PO TWICE A DAY November 28, 2023 12:00am January 17, 2024 1:52pm Start: 08-13-2022 End: 08-18-2022 take 1 tablet by mouth twice daily doxycycline monohydrate 100 mg tablet Take 1 tablet by mouth twice daily for 5 days. 10 tablet 0 08/13/2022 08/18/2022 Active Comment on above: Take 1 tablet by [facility] twice daily for 5 days. ergocalciferol 1.25 mg oral capsule (2 sources) Provitamin D2 Compound Start: 10-05-19 take 1 capsule by mouth every week ergocalciferol, vitamin D2, 50,000 unit capsule Take 1 capsule by mouth once each week. 12 capsule 0 10/04/2013 Active Comment on above: Take 1 capsule by [facility] once each week. estradiol 0.1 mg/ml vaginal cream (12 sources) Estrogen Start: 07-18-19 End: 09-18-19 Estradiol (Estrace) 0.01 % (0.1 mg/gram) cream Discontinued 1 g VAGINAL DAILY 42.5 July 18, 2020 1:00am July 18, 2020 11:57am for 14 days then 2x per week estrogens, conjugated (chcf) 0.625 mg/ml vaginal cream (6 sources) Estrogen Start: 09-18-19 End: 08-31-19 Conjugated Estrogens (Premarin) 0.625 mg/gram cream Discontinued 0.625 mg VAGINAL TWICE A WEEK September 17, 2020 1:00am August 31, 2023 8:41am nightly for 2 weeks then 2x per week fexofenadine (2 sources) Histamine-1 Receptor Antagonist FEXOFENADINE HCL (TREVON ORAL) Take 1 tablet by mouth as needed. 0 Active Comment on above: Take 1 tablet by [facility] as needed. 30 actuat fluticasone furoate 0.1 mg/actuat / vilanterol 0.025 mg/actuat dry powder inhaler (12 sources) Corticosteroid, beta2-Adrenergic Agonist Start: 01-10-20 18 End: 04-05-20 18 Fluticasone Furoate-Vilanterol (Breo Ellipta) 100-25 mcg/dose blister with device Discontinued 1 NMA INHALATION daily January 09, 2018 12:00am April 05, 2018 2:19pm Start: 01-09-2018 End: 04-05-2018 Fluticasone Furoate-Vilanter ol (Breo Ellipta) 100-25 mcg/dose blister with device Discontinued 1 INH INHALATION daily January 09, 2018 12:00am April 05, 2018 2:19pm Start: 07-12-2017 End: 11-08-2017 Fluticasone Furoate-Vilanter ol (Breo Ellipta) 100-25 mcg/dose blister with device Discontinued 1 NMA INHALATION Q24H July 12, 2017 1:00am November 08, 2017 1:40pm after inhalation, rinse mouth with water and spit out; do not swallow Start: 07-12-2017 End: 11-08-2017 Fluticasone Furoate-Vilanter ol (Breo Ellipta) 100-25 mcg/dose blister with device Discontinued 1 INH INHALATION Q24H July 12, 2017 1:00am November 08, 2017 1:40pm after inhalation, rinse mouth with water and spit out; do not swallow Start: 07-12-2017 End: 11-08-2017 Fluticasone Furoate-Vilanter ol (Breo Ellipta) 100-25 mcg/dose blister with device Discontinued 1 INH INHALATION Q24H July 12, 2017 12:00am November 08, 2017 12:40pm after inhalation, rinse mouth with water and spit out; do not swallow Mometasone-Formoterol (6 sources) Corticosteroid, beta2-Adrenergic Agonist Start: 05-27-2017 End: 07-12-2017 Mometasone-Formoterol 8.8 GM HFA aerosol inhaler Discontinued 1 NMA IH DAILY as needed for Sob &/Or Wheezing May 27, 2017 1:00am July 12, 2017 3:21pm Start: 05-27-2017 End: 07-12-2017 take 1 puff(s) by inhalation once daily Mometasone-Formoterol Discontinued 1 PUFF IH DAILY May 27, 2017 1:00am July 12, 2017 3:21pm Start: 05-27-2017 End: 07-12-2017 take 1 puff(s) by inhalation once daily Mometasone-Formoterol Discontinued 1 PUFF IH DAILY May 27, 2017 12:00am July 12, 2017 2:21pm hydroCHLOROthiazide 12.5 mg oral tablet (20 sources) Thiazide Diuretic Start: 01-17-2024 End: 05-04-2024 take 1 tablet by mouth once daily Hydrochlorothiazide 12.5 mg tablet Discontinued 12.5 mg PO DAILY January 17, 2024 12:00am May 04, 2024 10:33am Start: 11-13-2019 End: 08-31-2023 take 1 tablet by mouth once daily Hydrochlorothiazide 12.5 mg tablet Discontinued 12.5 mg PO DAILY November 13, 2019 12:00am August 31, 2023 8:42am Start: 10-19-2018 End: 11-13-2019 Hydrochlorothiazide 25 MG ta blet Discontinued 12.5 mg PO daily October 19, 2018 1:11pm November 13, 2019 2:45pm Start: 10-19-2018 End: 11-13-2019 take 12.5 mg by mouth once daily Hydrochlorothiazide Discontinued 12.5 MG PO daily October 19, 2018 1:11pm November 13, 2019 2:45pm Start: 11-08-2017 End: 10-19-2018 take 1 tablet by mouth once daily Hydrochlorothiazide 25 mg tablet Discontinued 25 mg PO daily November 10, 2017 1:46pm October 19, 2018 1:12pm Start: 05-27-2017 End: 11-08-2017 take 1 capsule by mouth once daily Hydrochlorothiazide 12.5 mg capsule Discontinued 12.5 mg PO daily November 08, 2017 1:37pm November 08, 2017 1:51pm lisinopril 20 mg oral tablet (2 sources) Angiotensin Converting Enzyme Inhibitor take 1 tablet by mouth once daily lisinopril 20 mg tablet Take 20 mg by mouth once daily. 0 Active Comment on above: Take 20 mg by mouth once daily. loratadine 10 mg oral capsule (12 sources) Start: 8 End: 8 take 1 capsule by mouth once daily Loratadine 10 mg capsule Discontinued 10 mg PO daily December 06, 2017 1:59pm January 09, 2018 12:47pm losartan potassium 100 mg oral tablet (2 sources) Angiotensin 2 Receptor Mitch take 1 tablet by mouth once daily losartan (COZAAR) 100 mg tablet Take 100 mg by mouth once daily. 0 Active Comment on above: Take 100 mg by mouth once daily. magnesium oxide 400 mg oral tablet (12 sources) Start: 8 End: 4 take 1 tablet by mouth once daily Magnesium Oxide 400 mg tablet Discontinued 400 mg PO DAILY November 08, 2017 1:38pm August 31, 2023 8:42am Start: 05-27-2017 End: 11-08-2017 Magnesium Oxide 400 MG table t Discontinued 200 mg PO DAILY May 27, 2017 1:00am November 08, 2017 1:41pm Start: 05-27-2017 End: 11-08-2017 take 200 mg by mouth once daily Magnesium Oxide Discontinued 200 MG PO DAILY May 27, 2017 1:00am November 08, 2017 1:41pm methylPREDNISolone 4 mg oral tablet (2 sources) Corticosteroid Start: 11-28-2023 End: 01-17-2024 take 1 tablet by mouth once Methylprednisolone (Medrol (Danny)) 4 mg tablets,dose pack Discontinued 0 PO per package directions November 28, 2023 12:00am January 17, 2024 1:52pm PO PER PKG DIR montelukast 10 mg oral tablet (8 sources) Leukotriene Receptor Antagonist Start: 01-17-2024 End: 05-04-2024 take 1 tablet by mouth once daily Montelukast 10 mg tablet Discontinued 10 mg PO DAILY January 17, 2024 12:00am May 04, 2024 10:33am Start: 05-27-2017 End: 08-31-2023 take 1 tablet by mouth once daily Montelukast 10 MG tablet Discontinued 10 mg PO DAILY May 27, 2017 1:00am August 31, 2023 8:43am nitrofurantoin, macrocrystals 25 mg / nitrofurantoin, monohydrate 75 mg oral capsule (12 sources) Nitrofuran Antibacterial Start: 07-18-2020 End: 07-25-2020 take 1 capsule by mouth every twelve hours at mealtime Nitrofurantoin Monohyd/M-Cryst (Macrobid) 100 mg capsule Discontinued 100 mg PO Q12H 14 July 18, 2020 12:05pm July 24, 2020 1:00am July 25, 2020 1:03am must administer with a meal/food predniSONE 10 mg oral tablet (5 sources) Start: 08-31-2023 End: 10-12-2023 Prednisone 10 mg tablet Discontinued 10 mg PO daily September 23, 2023 12:00am October 12, 2023 8:43am take 4 tabs for three days, then 3 tabs for three days, then 2 tabs for three days, then 1 tab for 3 days promethazine hydrochloride 12.5 mg oral tablet (3 sources) Phenothiazine Start: 08-31-2023 End: 01-17-2024 take 1 tablet by mouth every six hours as needed Promethazine 12.5 mg tablet Discontinued 12.5 mg PO EVERY 6 HOURS as needed August 31, 2023 1:00am January 17, 2024 1:53pm 24 hr venlafaxine 75 mg extended release oral capsule (8 sources) Serotonin and Norepinephrine Reuptake Inhibitor Start: 05-27-2017 End: 10-10-2017 take 1 capsule by mouth once daily Venlafaxine 75 MG capsule,extended release 24hr Discontinued 75 mg PO DAILY May 27, 2017 1:00am October 10, 2017 2:25pm take 1 capsule by mouth once butch ly venlafaxine ER (EFFEXOR XR) 150 mg 24 hr capsule Take 150 mg by mouth once daily. 0 Active Comment on above: Take 150 mg by mouth once daily. zolpidem tartrate 10 mg oral tablet (8 sources) gamma-Aminobutyri c Acid-ergic Agonist Start: 05-27-2017 End: 11-08-2017 take 1 tablet by mouth at bedtime Zolpidem 10 MG tablet Discontinued 10 mg PO AT BEDTIME May 27, 2017 1:00am November 08, 2017 1:39pm take 2 tablets by mo uth every twenty-four hours as needed zolpidem (AMBIEN CR) 6.25 mg CR tablet Take 12.5 mg by mouth at bedtime as needed. 0 Active Comment on above: Take 12.5 mg by mout h at bedtime as needed. Problems Active Problems Problem Classification Problem Date Documented Da te Episodic/Chronic Acute bronchitis (7 sources) Acute bronchitis; Translations: [Acute bronchitis, unspecified] 08-28-2022 Episodic Asthma (4 sources) Asthmatic bronchitis; Translations: [Unspecified asthma with (acute) exacerbation] 07-06-2024 Chronic Comment on above: INHALER Essential hypertension (6 sources) Essential hypertension; Translations: [Essential (primary) hypertension] 11-10-2019 Chronic Comment on above: CONTROLLED WITH MED Nutritional deficiencies (2 sources) Vitamin D deficiency; Translations: [Vitamin D deficiency, unspecified] Onset: 09-13-2013 09-13-2013 Chronic Other and unspecified benign neoplasm (3 sources) History of polyp of colon; Translations: [History of colonic polyps] 07-09-2024 Episodic Other lower respiratory disease (1 source) Cough; Translations: [Acute cough] Episodic Other lower respiratory disease (6 sources) Dyspnea on exertion; Translations: [Other forms of dyspnea] 11-10-2019 Episodic Other lower respiratory disease (4 sources) Dry cough; Translations: [Non-productive cough] 08-31-2023 Episodic Other nutritional; endocrine; and metabolic disorders (2 sources) Body mass index 30+ - obesity; Translations: [Obesity, unspecified] Onset: 09-13-2013 09-13-2013 Chronic Other upper respiratory infections (1 source) Chronic sinusitis; Translations: [Chronic sinusitis, unspecified] Chronic Other upper respiratory infections (1 source) Sore throat symptom; Translations: [Acute pharyngitis, unspecified] Episodic Thyroid disorders (3 sources) Hypothyroidism; Translations: [Hypothyroidism, unspecified] Onset: 09-13-2013 09-13-2013 Chronic Unclassified (1 source) Personal history of colon polyps, unspecified; Translations: [Personal history of colon polyps, unspecified] Onset: 07-30-2024 Past or Other Problems Problem Classification Problem Date Documented Da te Episodic/Chronic Other screening for suspected conditions (not mental disorders or infectious disease) (10 sources) Patient encounter status; Translations: [Encounter for screening for malignant neoplasm of intestinal tract, unspecified] Onset: 07-27-2024 11-10-2019 Episodic Results Test Name Value Interpretation Reference Range Facility Absolute lymphocyte countOrd ered By: Elias Epps on 12-10-2024 Lymphocytes Auto (Unsp spec) [#/Vol] 2.52 10*3/uL 0.83-4.51 [facility] Absolute neutrophil countOrd ered By: Elias Epps on 12-10-2024 Neutrophils (Bld) [#/Vol] 4.7 10*3/uL 2.0-7.7 [facility] Anion gap in Serum or Plasma Ordered By: Elias Epps on 12-10-2024 Anion gap [Moles/Vol] 11 mmol/L 5-[address] [facility] Automated lymphocyte count a s percentage of total leukocytesOrdered By: Elias Epps on 12-10-2024 Lymphocytes/100 WBC Auto (Unsp spec) 28.5 % 19-41 [facility] BUN/creatinine ratioOrdered By: Elias Epps on 12-10-2024 Urea nitrogen/Creatinine [Mass ratio] 10.1 mg/mg 10- [facility] Basophil percentageOrdered B y: Elias Epps on 12-10-2024 Basophils/100 WBC (Bld) 0.9 % 0-1 [facility] Bilirubin, totalOrdered By: Elias Epps on 12-10-2024 Bilirubin [Mass/Vol] 0.36 mg/dL 0.00-1.30 [facility] CBC W/Diff, Automatedon Absolute Lymph 2.52 X10 3/uL Normal 0.83-4.51 [facility] Comment on above: Performed By: #### L 501.9520, L500.4050, L501.2450, L501.76243, L506.0400, L100.0100 ####[facility] [address] [place], [address] Absolute Neut 4.7 X10 3/uL Normal 2.0-7.7 [facility] Comment on above: Performed By: #### L 501.9520, L500.4050, L501.2450, L501.03957, L506.0400, L100.0100 ####[facility] [address] [place], [address] Basophils/100 WBC (Bld) 0.9 % Normal 0-1 [facility] Comment on above: Performed By: #### L 501.9520, L500.4050, L501.2450, L501.85867, L506.0400, L100.0100 ####[facility] [address] [place], [address] Eosinophils/100 WBC (Bld) 8.8 % High 0-5 [facility] Comment on above: Performed By: #### L 501.9520, L500.4050, L501.2450, L501.76160, L506.0400, L100.0100 ####[facility] [address] [place], [address] Erythrocyte distribution width (RBC) [Ratio] 13.0 % Normal 11.6-14.6 [facility] Comment on above: Performed By: #### L 501.9520, L500.4050, L501.2450, L501.62213, L506.0400, L100.0100 ####[facility] [address] [place], [address] Hematocrit (Bld) [Volume fraction] 40.8 % Normal 37-47 [facility] Comment on above: Performed By: #### L 501.9520, L500.4050, L501.2450, L501.18571, L506.0400, L100.0100 ####[facility] [address] [place], [address] Hemoglobin (Bld) [Mass/Vol] 13.6 g/dL Normal 12.0-15.0 [facility] Comment on above: Performed By: #### L 501.9520, L500.4050, L501.2450, L501.97291, L506.0400, L100.0100 ####[facility] [address] [place], [address] IG% 0.300 Normal 0.0-0.9 [facility] Comment on above: Result Comment: IG% - Immature Granulocytes (promyelocytes, myelocytes and metamyelocytes) > 1% indicates that a LEFT SHIFT is Present. Performed By: #### L 501.9520, L500.4050, L501.2450, L501.96968, L506.0400, L100.0100 ####[facility] [address] [place], [address] Lymphocytes/100 WBC (Bld) 28.5 % Normal 19-41 [facility] Comment on above: Performed By: #### L 501.9520, L500.4050, L501.2450, L501.47871, L506.0400, L100.0100 ####[facility] [address] [place], [address] MCH (RBC) [Entitic mass] 31.3 pg Normal 27.0-32.0 [facility] Comment on above: Performed By: #### L 501.9520, L500.4050, L501.2450, L501.03053, L506.0400, L100.0100 ####[facility] [address] [place], [address] MCHC (RBC) [Mass/Vol] 33.3 g/dL Normal 32-[address] [facility] Comment on above: Performed By: #### L 501.9520, L500.4050, L501.2450, L501.66271, L506.0400, L100.0100 ####[facility] [address] [place], [address] MCV (RBC) [Entitic vol] 93.8 fL Normal 81-99 [facility] Comment on above: Performed By: #### L 501.9520, L500.4050, L501.2450, L501.31873, L506.0400, L100.0100 ####[facility] [address] [place], [address] Monocytes/100 WBC (Bld) 8.1 % Normal 0-10 [facility] Comment on above: Performed By: #### L 501.9520, L500.4050, L501.2450, L501.31564, L506.0400, L100.0100 ####[facility] [address] [place], [address] Neutrophils/100 WBC (Bld) 53.4 % Normal 47-70 [facility] Comment on above: Performed By: #### L 501.9520, L500.4050, L501.2450, L501.86892, L506.0400, L100.0100 ####[facility] [address] [place], [address] Nucleated RBC (Bld) [#/Vol] 0 10*3/uL Normal 0-5 [facility] Comment on above: Performed By: #### L 501.9520, L500.4050, L501.2450, L501.13536, L506.0400, L100.0100 ####[facility] [address] [place], [address] Platelet mean volume (Bld) [Entitic vol] 11.5 fL Normal 6.2-12.0 [facility] Comment on above: Performed By: #### L 501.9520, L500.4050, L501.2450, L501.94755, L506.0400, L100.0100 ####[facility] [address] [place], [address] Platelets (Bld) [#/Vol] 325 10*3/uL Normal 150-450 [facility] Comment on above: Performed By: #### L 501.9520, L500.4050, L501.2450, L501.10817, L506.0400, L100.0100 ####[facility] [address] [place], [address] RBC (Bld) [#/Vol] 4.35 10*6/uL Normal 4.2-5.4 [facility] Comment on above: Performed By: #### L 501.9520, L500.4050, L501.2450, L501.42591, L506.0400, L100.0100 ####[facility] [address] [place], [address] RDW SD 44.5 fl High 35.1-43.9 [facility] Comment on above: Performed By: #### L 501.9520, L500.4050, L501.2450, L501.20925, L506.0400, L100.0100 ####[facility] [address] [place], [address] WBC (Bld) [#/Vol] 8.9 10*3/uL Normal 4.4-11.0 [facility] Comment on above: Performed By: #### L 501.9520, L500.4050, L501.2450, L501.09671, L506.0400, L100.0100 ####[facility] [address] [place], [address] Carbon dioxide, total [Moles /volume] in Central venous bloodOrdered By: Elias Epps on 12-10-2024 CO2 [Moles/Vol] 23.8 mmol/L 21.0-32.0 [facility] Chloride assayOrdered By: Marin Epps on 12-10-2024 Chloride [Moles/Vol] 105 mmol/L 98-108 [facility] Comprehensive Metabolic Prof ilon 12-10-2024 Albumin [Mass/Vol] 4.2 g/dL Normal 3.4-4.8 [facility] Comment on above: Performed By: #### L 501.9520, L500.4050, L501.2450, L501.46282, L506.0400, L100.0100 ####[facility] [address] [place], [address] Albumin/Globulin [Mass ratio] 1.4 {ratio} Normal 0.9-2.4 [facility] Comment on above: Performed By: #### L 501.9520, L500.4050, L501.2450, L501.51032, L506.0400, L100.0100 ####[facility] [address] [place], [address] ALK PHOS 91 U/L Normal 35-104 [facility] Comment on above: Performed By: #### L 501.9520, L500.4050, L501.2450, L501.86537, L506.0400, L100.0100 ####[facility] [address] [place], [address] ALT [Catalytic activity/Vol] 15 U/L Normal <=34 [facility] Comment on above: Performed By: #### L 501.9520, L500.4050, L501.2450, L501.72576, L506.0400, L100.0100 ####[facility] [address] [place], [address] AST [Catalytic activity/Vol] 23 U/L Normal <=31 [facility] Comment on above: Performed By: #### L 501.9520, L500.4050, L501.2450, L501.99924, L506.0400, L100.0100 ####[facility] [address] [place], [address] Bilirubin [Mass/Vol] 0.36 mg/dL Normal 0.00-1.30 [facility] Comment on above: Performed By: #### L 501.9520, L500.4050, L501.2450, L501.83332, L506.0400, L100.0100 ####[facility] [address] [place], [address] BUN/CRE 10.1 RATIO Normal 10-20 [facility] Comment on above: Performed By: #### L 501.9520, L500.4050, L501.2450, L501.98048, L506.0400, L100.0100 ####[facility] [address] [place], [address] Calcium [Mass/Vol] 9.8 mg/dL Normal 7.6-11.0 [facility] Comment on above: Performed By: #### L 501.9520, L500.4050, L501.2450, L501.12870, L506.0400, L100.0100 ####[facility] [address] [place], [address] Chloride [Moles/Vol] 105 mmol/L Normal 98-108 [facility] Comment on above: Performed By: #### L 501.9520, L500.4050, L501.2450, L501.83767, L506.0400, L100.0100 ####[facility] [address] [place], [address] CO2 [Moles/Vol] 23.8 mmol/L Normal 21.0-32.0 [facility] Comment on above: Performed By: #### L 501.9520, L500.4050, L501.2450, L501.85140, L506.0400, L100.0100 ####[facility] [address] [place], [address] Creatinine [Mass/Vol] 0.90 mg/dL Normal 0.70-1.[address] [facility] Comment on above: Performed By: #### L 501.9520, L500.4050, L501.2450, L501.06709, L506.0400, L100.0100 ####[facility] [address] [place], [address] GAP 11 Normal 5-15 [facility] Comment on above: Performed By: #### L 501.9520, L500.4050, L501.2450, L501.39293, L506.0400, L100.0100 ####[facility] [address] [place], [address] GFR/1.73 sq M.predicted among non-blacks MDRD (S/P/Bld) [Vol rate/Area] 69 mL/min/{1.73_m2} Normal >60 [facility] Comment on above: Result Comment: mL/m in/1.73m2 CKD-EPI Creatinine Equation (2020) Performed By: #### L 501.9520, L500.4050, L501.2450, L501.89823, L506.0400, L100.0100 ####[facility] [address] [place], [address] Globulin (S) [Mass/Vol] 2.9 g/dL Normal 2.2-4.2 [facility] Comment on above: Performed By: #### L 501.9520, L500.4050, L501.2450, L501.68514, L506.0400, L100.0100 ####[facility] [address] [place], [address] Glucose [Mass/Vol] 95 mg/dL Normal 70-99 [facility] Comment on above: Performed By: #### L 501.9520, L500.4050, L501.2450, L501.93428, L506.0400, L100.0100 ####[facility] [address] [place], [address] Potassium [Moles/Vol] 3.6 mmol/L Normal 3.3-5.[address] [facility] Comment on above: Performed By: #### L 501.9520, L500.4050, L501.2450, L501.80336, L506.0400, L100.0100 ####[facility] [address] [place], [address] Sodium [Moles/Vol] 140 mmol/L Normal 133-145 [facility] Comment on above: Performed By: #### L 501.9520, L500.4050, L501.2450, L501.22557, L506.0400, L100.0100 ####[facility] [address] [place], [address] T PROT 7.1 g/dL Normal 5.9-8.4 [facility] Comment on above: Performed By: #### L 501.9520, L500.4050, L501.2450, L501.68090, L506.0400, L100.0100 ####[facility] [address] [place], [address] Urea nitrogen [Mass/Vol] 9 mg/dL Normal 4-19 [facility] Comment on above: Performed By: #### L 501.9520, L500.4050, L501.2450, L501.24357, L506.0400, L100.0100 ####[facility] [address] [place], [address] Eosinophil percentageOrdered By: Elias Epps on 12-10-2024 Eosinophils/100 WBC (Bld) 8.8 % High 0-5 [facility] Erythrocyte distribution wid th ratioOrdered By: Elias Epps on 12-10-2024 Erythrocyte distribution width (RBC) [Ratio] 13.0 % 11.6-14.6 [facility] Erythrocyte distribution wid th standard deviationOrdered By: Elias Epps on 12-10-2024 Erythrocyte distribution width (RBC) [Ratio] 44.5 fl High 35.1-43.9 [facility] Free T3on 12-10-2024 Free T3 [Mass/Vol] 3.6 pg/mL Normal 2.18-3.98 [facility] Comment on above: Performed By: #### L 501.9520, L500.4050, L501.2450, L501.36395, L506.0400, L100.0100 ####[facility] [address] [place], [address] Free J2Coeusvu By: Elias shahid on 12-10-2024 Free T3 [Mass/Vol] 3.6 pg/mL 2.18-3.98 [facility] Glomerular filtration rate ( GFR) estimation/1.73 sq m using serum, plasma, or whole bOrdered By: Elias Epsp on 12-10-2024 GFR/1.73 sq M.predicted among non-blacks MDRD (S/P/Bld) [Vol rate/Area] 69 mL/min/{1.73_m2} >60 [facility] Comment on above: mL/min/1.73m2 CKD-EP I Creatinine Equation (2020) Hematocrit Auto (Bld) [Volum e fraction]Ordered By: Elias Epps on 12-10-2024 Hematocrit (Bld) [Volume fraction] 40.8 % 37-47 [facility] Hemoglobin measurementOrdere d By: Elias Epps on 12-10-2024 Hemoglobin (Bld) [Mass/Vol] 13.6 g/dL 12.0-15.0 [facility] Immature granulocytes/100 WB C Auto (Bld)Ordered By: Elias Epps on 12-10-2024 Immature granulocytes/100 WBC (Bld) 0.300 % 0.0-0.9 [facility] Comment on above: IG% - Immature Granu locytes (promyelocytes, myelocytes and metamyelocytes) > 1% indicates that a LEFT SHIFT is Present. Laboratory - Chemistry and C hemistry - challengeOrdered By: Elias Epps on 12-10-2024 AST [Catalytic activity/Vol] 23 U/L <32 [facility] Lipaseon 12-10-2024 Lipase [Catalytic activity/Vol] 23 U/L Normal 13-75 [facility] Comment on above: Result Comment: Og keith note: LIPASE revised reference range effective 22. New Lipase methodology. Expected to produce lower values than the previous assay method. NEW Reference Range: 13 - 75 U/L Performed By: #### L 501.9520, L500.4050, L501.2450, L501.46950, L506.0400, L100.0100 ####[facility] [address] [place], [address] Lipase measurementOrdered By : Elias Epps on 12-10-2024 Lipase [Catalytic activity/Vol] 23 U/L 13-75 [facility] Comment on above: Please note:LIPASE r evised reference range effective 22. New Lipase methodology. Expected to produce lower values than the previous assay method. NEW Reference Range: 13 - 75 U/L MCV (mean corpuscular volume ) determinationOrdered By: Elias Epps on 12-10-2024 MCV (RBC) [Entitic vol] 93.8 fL 81-99 [facility] Mean corpuscular hemoglobin (MCH) determinationOrdered By: Elias Epps on 12-10-2024 MCH (RBC) [Entitic mass] 31.3 pg 27.0-32.0 [facility] Mean corpuscular hemoglobin concentration (MCHC) determinationOrdered By: Elias Epps on 12-10-2024 MCHC (RBC) [Mass/Vol] 33.3 g/dL 32-[address] [facility] Mean platelet volume determi nationOrdered By: Elias Epps on 12-10-2024 Platelet mean volume (Bld) [Entitic vol] 11.5 fL 6.2-12.0 [facility] Monocyte percentageOrdered B y: Elias Epps on 12-10-2024 Monocytes/100 WBC (Bld) 8.1 % 0-10 [facility] Neutrophil percentageOrdered By: Elias Epps on 12-10-2024 Neutrophils/100 WBC (Bld) 53.4 % 47-70 [facility] Nucleated red blood cell per centageOrdered By: Elias Epps on 12-10-2024 Nucleated RBC/100 WBC (Bld) [Ratio] 0 % 0-5 [facility] Platelet countOrdered By: Marin Epps on 12-10-2024 Platelets (Bld) [#/Vol] 325 10*3/uL 150-450 [facility] Potassium measurement (mass/ volume)Ordered By: Elias Epps on 12-10-2024 Potassium (Unsp spec) [Mass/Vol] 3.6 mmol/L 3.3-5.1 [facility] RBC Auto (Bld) [#/Vol]Ordere d By: Elias Epps on 12-10-2024 RBC (Bld) [#/Vol] 4.35 10*6/uL 4.2-5.4 [facility] Serum creatinine measurement (mass/volume)Ordered By: Elias Epps on 12-10-2024 Creatinine [Mass/Vol] 0.90 mg/dL 0.70-1.[address] [facility] Serum globulin measurementOr dered By: Elias Epps on 12-10-2024 Globulin (S) [Mass/Vol] 2.9 g/dL 2.2-4.2 [facility] Serum glucose measurement (m ass/volume)Ordered By: Elias Epps on 12-10-2024 Glucose [Mass/Vol] 95 mg/dL 70-99 [facility] Serum or plasma alanine thompson otransferase (ALT) measurementOrdered By: Elias Epps on 12-10-2024 ALT [Catalytic activity/Vol] 15 U/L <35 [facility] Serum or plasma albumin darwin urement (mass/volume)Ordered By: Elias Epps on 12-10-2024 Albumin [Mass/Vol] 4.2 g/dL 3.4-4.8 [facility] Serum or plasma albumin/glob ulin mass ratioOrdered By: Elias Epps on 12-10-2024 Albumin/Globulin [Mass ratio] 1.4 {ratio} 0.9-2.4 [facility] Serum or plasma alkaline rc sphatase measurementOrdered By: Elias Epps on 12-10-2024 ALP [Catalytic activity/Vol] 91 U/L 35-104 [facility] Serum or plasma calcium darwin urement (mass/volume)Ordered By: Elias Epps on 12-10-2024 Calcium [Mass/Vol] 9.8 mg/dL 7.6-11.0 [facility] Serum or plasma urea nitroge n measurement (mass/volume)Ordered By: Elias Epps on 12-10-2024 Urea nitrogen [Mass/Vol] 9 mg/dL 4-19 [facility] Sodium levelOrdered By: Elias Epps on 12-10-2024 Sodium [Moles/Vol] 140 mmol/L 133-145 [facility] T4 Free Directon 12-10-2024 T4 FREE DIRECT 1.50 ng/dL High 0.76-1.46 [facility] Comment on above: Performed By: #### L 501.9354, L500.4050, L501.2450, L501.95974, L506.0400, L100.0100 ####[facility] [address] [place], [address] T4 freeOrdered By: Elias shahid on 12-10-2024 Free T4 [Mass/Vol] 1.50 ng/dL High 0.76-1.46 [facility] TSH DL <= 0.005 mIU/L QnOrde red By: Elias Epps on 12-10-2024 TSH Qn 0.190 uIU/mL Low 0.300-4.200 [facility] Thyroid Stim Hormone (TSH)on 12-10-2024 TSH 0.190 uIU/mL Low 0.300-4.200 [facility] Comment on above: Performed By: #### L 501.9520, L500.4050, L501.2450, L501.71625, L506.0400, L100.0100 ####[facility] [address] [place], [address] Total proteinOrdered By: Starr Epps on 12-10-2024 Protein [Mass/Vol] 7.1 g/dL 5.9-8.4 [facility] White blood cell (WBC) count Ordered By: Elias Epps on 12-10-2024 WBC (Bld) [#/Vol] 8.9 10*3/uL 4.4-11.0 [facility] Free T3on 10-01-2024 Free T3 [Mass/Vol] 3.2 pg/mL Normal 2.18-3.98 [facility] Comment on above: Order Comment: Order Date: 04/10/24 Order Info: 3051-0 - T3F Order Info: 3016-3 - TSH Order Info: 3024-7 - T4F Performed By: #### L 501.57688, L506.0400, L501.9520 #### [facility] [address] [place], [address] Free L3Juoqykx By: Elias shahid on 10-01-2024 Free T3 [Mass/Vol] 3.2 pg/mL 2.18-3.98 [facility] Free Triiodothyronine (T3) pg/dL 3.2 pg/mL 2.18-3.98 [facility] T4 Free Directon 10-01-2024 T4 FREE DIRECT 1.50 ng/dL High 0.76-1.46 [facility] Comment on above: Order Comment: Order Date: 04/10/24 Order Info: 305-0 - T3F Order Info: 3016-3 - TSH Order Info: 3024-7 - T4F Performed By: #### L 501.34220, L506.0400, L501.9520 #### [facility] [address] [place], [place], [address] T4 freeOrdered By: Elias shahid on 10-01-2024 Free T4 [Mass/Vol] 1.50 ng/dL High 0.76-1.46 [facility] TSH DL <= 0.005 mIU/L QnOrde red By: Elias Epps on 10-01-2024 Thyroid Stimulating Hormone (TSH) 0.144 uIU/mL Low 0.300-4.200 [facility] TSH Qn 0.144 uIU/mL Low 0.300-4.200 [facility] Thyroid Stim Hormone (TSH)on 10-01-2024 TSH 0.144 uIU/mL Low 0.300-4.200 [facility] Comment on above: Order Comment: Order Date: 04/10/24 Order Info: 305-0 - T3F Order Info: 3016-3 - TSH Order Info: 3024-7 - T4F Performed By: #### L 501.97278, L506.0400, L501.9520 #### [facility] [address] [place], [place], [address] Colonoscopy Reporton 024 Colonoscopy Report [facility] Medical Records Department [address] [place] [address] Colonoscopy Report MR#: [id number] Acct: [id number] Name: FOSTERMELISSAGERARDO ANNA Rep #: [id number] : 1955 69 From: Karen Muse MD PCP: Dr. Elias Epps MD Status:REG [facility] [place] Patient Name: Melissa Foster Procedure Date: 07/09/2024 9:17 AM Date of : 1955 Age: 69 Procedure: Colonoscopy Indications: High risk colon cancer surveillance: Personal history of colonic polyps Providers: Karen Muse MD Referring MD: Elias Epps Medicines: Monitored Anesthesia Care Patient Profile: This is a 69 year old female. Last Colonoscopy: June 2019. Complications: No immediate complications. Procedure: Pre-Anesthesia Assessment: - Prior to the procedure, a History and Physical was performed, and patient medications and allergies were reviewed. The patient's tolerance of previous anesthesia was also reviewed. The risks and benefits of the procedure and the sedation options and risks were discussed with the patient. All questions were answered, and informed consent was obtained. Prior Anticoagulants: The patient has taken no anticoagulant or antiplatelet agents. ASA Grade Assessment: Per anesthesia. After reviewing the risks and benefits, the patient was deemed in satisfactory condition to undergo the procedure. After I obtained informed consent, the scope was passed under direct vision. Throughout the procedure, the patient's blood pressure, pulse, and oxygen saturations were monitored continuously. The Colonoscope was introduced through the anus and advanced to the cecum, identified by the appendiceal orifice, ileocecal valve and palpation. The colonoscopy was performed without difficulty. The patient tolerated the procedure well. The quality of the bowel preparation was good. Scope In: 9:26:22 AM Scope Withdrawal Time 0 hours 7 minutes 40 seconds Scope Out: 9:45:01 AM Total Procedure Duration Time 0 hours 18 minutes 39 seconds Findings: The perianal and digital rectal examinations were normal. A less than 5 mm polyp was found in the cecum. The polyp was sessile. The polyp was removed with a cold biopsy forceps. Resection and retrieval were complete. Multiple small-mouthed diverticula were found in the sigmoid colon. The exam was otherwise without abnormality on direct and retroflexion views. Impression: - One less than 5 mm polyp in the cecum, removed with a cold biopsy forceps. Resected and retrieved. - Diverticulosis in the sigmoid colon. - The examination was otherwise normal on direct and retroflexion views. Recommendation: - Discharge patient to home. - Resume previous diet. - Continue present medications. - Await pathology results. - Repeat colonoscopy in 5 years for surveillance based on pathology results. Procedure Code(s): --- Professional --- 95477, PT, Colonoscopy, flexible; with biopsy, single or multiple Diagnosis Code(s): --- Professional --- Z86.010, Personal history of colonic polyps D12.0, Benign neoplasm of cecum K57.30, Diverticulosis of large intestine without perforation or abscess without bleeding CPT copyright 2021 [employer]. All rights reserved. The codes documented in this report are preliminary and upon scaler packer review may be revised to meet current compliance requirements. MD Karen Gates MD 07/09/2024 9:48:18 AM This report has been signed electronically. Number of Addenda: 0 Note Initiated On: 07/09/2024 9:17 AM 07/09/24947 Date Karen Muse MD Cosigner Signature: Date (if indicated) CC: Dr. Elias Epps MD; Dr. Karen Muse MD Date Dictated: 07/09/24916 Date Transcribed: Motor And Generator Brush Maker: TR Signed [facility] MR/POSTOP.[facility] 07-09-2024 MR/POSTOP.[facility] Medical Records Department [address] [place] [address] Anesthesia Postop Eval I 07/09/24 0954 MR#: [id number] Acct: [id number] Name: MELISSA FOSTER Rep #: [id number] : 1955 69 From: Adolfo Louise PCP: Dr. Elias Epps MD Status:REG SDC Y Race: C Location: [place] [address] Anesthesia: Postop Eval I Current Vital Signs Temperature: 97.1 F Pulse Rate: 76 Blood Pressure: 110/56 Respiratory Rate: 16 Pulse Ox: 100 Oxygen Delivery Method: Room Air Assessment Airway patent: Yes Spontaneous unlabored respirations: Yes Mental status: Awake and Calm nausea: No Vomiting: No Anesthesia Complication: No Fluid Hydration Crystalloid volume administer (ml): 60 Total IV fluid infused: 60 Progress Note Anesthesia document: Postop Eval 1 completed: Yes 07/09/24 0956 Date Adolfo Dacostaignmarin Signature: Date CC: Signed Normal [facility] MR/[id number] 07-09-2024 [facility] Medical Records Department [address] [place] [address] Anesthesia Postop Eval II 07/09/24 1046 MR#: [id number] Acct: [id number] Name: MELISSA FOSTER Rep #: [id number] : 1955 69 From: Mariano Almonte MD PCP: Dr. Elias Epps MD Status:[facility] Y Race: C Location: [place] Anesthesia Postop Eval I Sum Postop Eval Completion status Anesthesia document: Postop Eval 1 completed: Yes Anesthesia Postop Eval I Summary Anesthesia Postop Eval I Summary: Anesthesia Postop Eval I: Assessment Summary Airway patent Yes 07/09/24 09:55 [email or web address] Spontaneous unlabored Yes 07/09/24 09:55 [email or web address] respirations Mental status Awake,Calm 07/09/24 09:55 [email or web address] nausea No 07/09/24 09:55 [email or web address] Vomiting No 07/09/24 09:55 [email or web address] Anesthesia Postop Eval I: Fluid Summary Crystalloid volume administer 60 07/09/24 09:55 [email or web address] (ml) Colloids volume administered ( ml) Blood Product volume administered (ml) Total IV fluid infused 60 07/09/24 09:55 [email or web address] Anesthesia Postop Eval I: Summary Notes Anesthesia Complication No 07/09/24 09:55 [email or web address] Anesthesia Complication Comment: Post-operative progress note Anesthesia: Postop Eval II Evaluation Mental status: Awake and Calm Pain Level: 0 nausea: No Vomiting: No Complications Anesthesia Complication: No 07/09/24 1046 Date Mariano Ayala Signature: Date CC: Signed Normal [facility] Surgery Specimen Level Anita 07-09-2024 Surgery Specimen Level IV ----- Patient Age/Sex Location Account Attending Physician MELISSA FOSTER 69/F EN [id number] Dr. Karen Muse MD Specimen: [id number] Received: 07/09/24- Status: LINDA Dsouza Num: [id number] Spec Type: COLON BX Subm Dr: Dr. Karen Muse MD HEADER OPERATION: Colonoscopy biopsy PRE-OP DIAGNOSIS: Personal history of colonic polyps TISSUE SUBMITTED: Cecum polyp biopsy MICROSCOPIC DIAGNOSIS Cecum polyp, biopsy: Fragments of tubular adenoma. /mr 07/12/2024 MICROSCOPIC DESCRIPTION Slides are reviewed. GROSS DESCRIPTION Received in fixative is one container labeled with the patient's name and designated Cecum polyp biopsy. The specimen consists of multiple irregular fragments of light jeff soft tissue that in aggregate measure 0.6 x 0.2 x 0.1 cm. The specimen is totally submitted in one cassette. AR/mr 07/10/2024 TC:1 CPT:39577 Patient Age/Sex Location Account Attending Physician MELISSA FOSTER 69/F EN [id number] Dr. Karen Muse MD Signed (signatur e on file) Dr. Stan Noriega MD 07/12/24 1042 Normal [facility] Comment on above: Performed By: #### P SUIV ####[facility] [id number] [place], [address] /PAT.JEANEon 07-06-2024 /[facility] Department [address] [place] [address] PAT - Anesthesia 07/06/24 1047 MR#: [id number] Acct: [id number] Name: MELISSA FOSTER Rep #: [id number] : 1955 69 From: Demario Stone MD PCP: Dr. 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 When Was Last Pacemaker Check QUESTION #4 FULL TEXT: You/Your Family Experience fever (hyperthermia) with Anesthesia Last Oral Intake Last Oral intake: Last Oral Intake NPO since Meds taken in AM with sips of water? 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 Female Yes 07/06/24 10:22 HX of Motion Sickness No 07/06/24 10:22 HX of N/V After Surgery No 07/06/24 10:22 Non-Smoker Yes 07/06/24 10:22 Duration of Surgery greater No 07/06/24 10:22 than 60 minutes Number of Risk Factors 2 07/06/24 10:22 PONV Score Moderate Risk 07/06/24 10:22 Height Weight Height Weight: Anesthesia: Height Weight Height 5 ft 3 in 05/04/24 10:44 Respiratory Assessment Respiratory Assessment - reel repairer: Respiratory Tract Infection Hx - reel repairer Hx Respiratory Tract Infection No 07/06/24 10:22 STOP Sleep Apnea STOP 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 Has anyone observed you stop No 07/06/24 10:22 breathing during sleep? STOP Results Negative 07/06/24 10:22 QUESTION #5 FULL TEXT : Do you snore loudly (louder than talking or can be heard through closed doors)? 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 confused, unrespo /Reproduct ion History /Reproduct radhames History - reel repairer: /Reproduct radhames Hx- reel repairer Hx Now No 07/06/24 10:22 Gestational Age (in weeks): EDC: Hx Hx Para Hx Section SAB No 07/06/24 10:22 [facility] Medical History (Updated 07/06/24 @ 10:31 by Arabella Thompson) Wears hearing aid Wears glasses Post-menopausal Arthritis Easy bruising Back pain Injury of head and neck Non-smoker Shortness of breath on exertion Leg cramps History of stress test History of echocardiogram History of pain when walking History of edema Cardiology follow-up encounter Personal history of colonic polyps Asthmatic bronchitis with acute exacerbation Hypothyroidism Essential (primary) hypertension PND (post-nasal drip) Migraine Non-productive cough Asthma Home Medications ???Medication ???Instructions ???Recorded ???Last Taken ???Type fluticasone propionate 50 2 spray intranasal QDAY PRN Nasal 10/19/18 Unknown History mcg/actuation nasal Congestion spray,suspension bisoprolol fumarate 5 mg tablet 5 mg PO QHS 11/13/19 Unknown History cholecalciferol (vitamin D3) 25 1,000 unit PO DAILY 11/13/19 Unknown History mcg (1,000 unit) tablet (more content not included)... Normal [facility] SCRN MAMM (CAD)W/IMELDA Ulrich n 06-25-2024 SCRN MAMM (CAD)W/[facility] Imaging Services [address] [place] [address] SCRN MAMM (CAD)W/[facility] MR#: [id number] Acct: [id number] Name: MELISSA FOSTER Rep #: [id number] : 1955 F 69 From: Jose Antonio berkowitz MD PCP: Dr. Elias Epps MD Status: [facility] [address] Study: SCRN MAMM (CAD)W/IMELDA BILAT Date of Exam: 06/10 01/01 Exam# [id number] Ordering Dr: Elias Epps MD -[id number] MAMMOGRAPHY - BILATERAL SCREENING REASON FOR EXAM: Female, 69 years old. Routine annual screening examination. PERTINENT HISTORY: Non-contributory. TECHNIQUE: Digital bilateral breast imelda (3D mammographic acquisition) in the CC and MLO projections. 2-D mediolateral oblique (MLO) and craniocaudad (CC) views of both breasts were obtained. CAD: Full Field Digital Mammography with Computer Added Detection was performed. COMPARISON: Comparison is made with prior study dated August 27, 2021 and June 13, 2019. FINDINGS: Breast Composition: The breasts are heterogeneously dense, which may obscure small masses. There are no dominant masses or suspicious calcifications. No other significant abnormalities are identified. There has been no significant change since the prior study. BI/SCRN MAMM (CAD)W/IMELDA BILAT IMPRESSION: Stable bilateral screening mammogram. Yearly follow-up mammogram recommended. (A) ASSESSMENT CATEGORY: BIRADS Category 1: Negative. A letter regarding these results will be sent to the patient by the facility within 30 days. Approximately 10% of breast cancers are not detected by mammography. A normal mammogram should not delay biopsy of a clinically suspicious abnormality. [id number] Electronically Signed: Jose Antonio Kumar MD at 14:26 EST , CC: Dr. 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 [place], [place], [id number] Lipid Profileon 04-06-2024 Cholesterol [Mass/Vol] 172 mg/dL Normal [facility] Comment on above: Order Comment: Order Date: 01/16/24 Order Info: [id number] - LIPID Order Info: 3050-0 - T3F Order Info: 3026-2 - T4 Order Info: 3016-3 - TSH Result Comment: <200 mg/dL Desirable 200-240 mg/dL Borderline >240 mg/dL High Risk Performed By: #### L 501.9310, L501.75915, L502.0250, L501.9520, L500.4100, L506.1000 #### [facility] [address] [place], [place], [address] Cholesterol in HDL [Mass/Vol] 64 mg/dL Normal [facility] Comment on above: Order Comment: Order Date: 01/16/24 Order Info: [id number] - LIPID Order Info: 3051-0 - T3F Order Info: 3026-2 - T4 Order Info: 3016-3 - TSH Result Comment: The drugs N-Acetylcysteine and Metamizole may falsely depress this assay. Reference Range HDL <40 mg/dL Low HDL Cholesterol HDL >or= 60 mg/dL High HDL Cholesterol Performed By: #### L 501.9310, L501.21824, L502.0250, L501.9520, L500.4100, L506.1000 #### [facility] [address] [place], [address] Cholesterol in LDL [Mass/Vol] 97 mg/dL Normal 0-130 [facility] Comment on above: Order Comment: Order Date: 01/16/24 Order Info: [id number] - LIPID Order Info: 3050-0 - T3F Order Info: 3026-2 - T4 Order Info: 3015-3 - TSH Performed By: #### L 501.9310, L501.98431, L502.0250, L501.9520, L500.4100, L506.1000 #### [facility] [address] [place], [address] Cholesterol in VLDL [Mass/Vol] 11 mg/dL Normal 5-40 [facility] Comment on above: Order Comment: Order Date: 01/16/24 Order Info: [id number] - LIPID Order Info: 0 - T3F Order Info: 2 - T4 Order Info: 3015-3 - TSH Performed By: #### L 501.9310, L501.87662, L502.0250, L501.9520, L500.4100, L506.1000 #### [facility] [address] [place], [address] Triglyceride [Mass/Vol] 54 mg/dL Normal [facility] Comment on above: Order Comment: Order Date: 01/16/24 Order Info: [id number] - LIPID Order Info: 0 - T3F Order Info: 302-2 - T4 Order Info: 3016-3 - TSH Result Comment: The drugs N-Acetylcysteine and Metamizole may falsely depress this assay. Serum Triglycerides Reference Interval Normal <150 mg/dL Borderline high 150 - 199 mg/dL High 200 - 499 mg/dL Very High > or = 500 mg/dL Performed By: #### L 501.9310, L501.00122, L502.0250, L501.9520, L500.4100, L506.1000 #### [facility] [address] [place], [place], [address] Microalb:Creat Ratio,Random URon 04-06-2024 Creatinine [Mass/Vol] 29.70 mg/dL Normal NO RANGE EST. [facility] Comment on above: Order Comment: Order Date: 01/16/24 Order Info: 0779-1 - MIACRE Performed By: #### L 501.9310, L501.44357, L502.0250, L501.9520, L500.4100, L506.1000 #### [facility] [address] [place], [address] MALB:CRE 47.8 mg/g CRE High <30 mg/g CRE [facility] Comment on above: Order Comment: Order Date: 01/16/24 Order Info: 0779-1 - MIACRE Performed By: #### L 501.9310, L501.96467, L502.0250, L501.9520, L500.4100, L506.1000 #### [facility] [address] [place], [address] MICROALBUMIN,UR 14.2 mg/L Normal NO RANGE EST. [facility] Comment on above: Order Comment: Order Date: 01/16/24 Order Info: 0779-1 - MIACRE Performed By: #### L 501.9310, L501.73795, L502.0250, L501.9520, L500.4100, L506.1000 #### [facility] [address] [place], [address] T4 Total, Thyroxinon 024 T4 [Mass/Vol] 11.8 ug/dL Normal 4.8-13.9 [facility] Comment on above: Order Comment: Order Date: 01/16/24Order Info: [id number] - LIPIDOrder Info: 3051-0 - N6TMafqk Info: 3026-2 - S1Qepub Info: 3016-3 - TSH Performed By: #### L 501.9310, L501.41089, L502.0250, L501.9520, L500.4100, L506.1000 ####[facility] [address] [place], [address] Thyroid Stim Hormone (TSH)on 04-06-2024 TSH 0.041 uIU/mL Low 0.358-3.740 [facility] Comment on above: Order Comment: Order Date: 01/16/24Order Info: [id number] - LIPIDOrder Info: 3051-0 - R2PEmwsp Info: 3026-2 - N2Cnjtr Info: 3016-3 - TSH Performed By: #### L 501.9310, L501.34032, L502.0250, L501.9520, L500.4100, L506.1000 ####[facility] [address] [place], [address] Vitamin D,25 Hydroxyon 04-06 Vitamin D 25-OH 51.2 ng/mL Normal [facility] Comment on above: Order Comment: Order Date: 01/16/24 Order Info: 58792-9 - VITD25 Result Comment: Zena min D 25(OH) Status Range Deficiency <20 ng/mL (50nmol/L) Insufficiency 20 - 30 ng/mL (50 - 75 nmol/L) Sufficiency 30 - 100 ng/mL (75 - 250 nmol/L) Toxicity >100 ng/mL (>250 nmol/L) Performed By: #### L 501.9310, L501.06224, L502.0250, L501.9520, L500.4100, L506.1000 #### [facility] [address] [place], [address] Pulmonary Visit Reporton Pulmonary Visit Report [facility] [place] [address] [place] [address] OFFICE VISIT Date of Service: 01/17/24 MR#: [id number] Acct: [id number] Name: MELISSA FOSTERN Rep #: [id number] : 1955 Provider: JULIAN Nowak Age/Sex: 68/F [place] [facility] Status: Signed Assessment and Plan Assessment and Plan (1) Asthma: Status: Chronic Qualifiers: Asthma complication type: uncomplicated Asthma persistence: persistent Asthma severity: moderate Qualified Code(s): J45.40 - Moderate persistent asthma, uncomplicated; J45.40 - Moderate persistent asthma, uncomplicated; J45.40 - Moderate persistent asthma, uncomplicated Plan: Asymptomatic at this time. The patient would like to follow-up as needed. This is agreeable. We discussed the possibility that this may be seasonal, if so she will contact the office for a visit. HPI 3 M FU Chief Complaint: Routine follow-up HPI Comments Details: This patient presents to the office today for follow-up of her asthma. She is ambulatory and currently on room air. She has not recently been seen in the ED or urgent care for any respiratory illness. She has not required any antibiotics or prednisone for any breathing problems. She is not currently on any maintenance inhalers. In fact, after the last office visit she completed the antibiotics and prednisone taper that was prescribed, then no longer needed inhalers. She is no longer on Wixela. She has not needed albuterol. She is no longer taking cetirizine or Flonase. Shortness of breath has returned to baseline, significantly improved. She no longer has a cough. She denies any wheezing, chest tightness, chest pain or palpitations. She denies any fever, chills or body aches. Intake Vital Signs 10/12/23 08:11 01/17/24 08:16 Height 5 ft 3 in 5 ft 3 in Weight: 197 lb 200 lb BMI 34.9 35.4 BP 127/72 H 125/84 H Blood Pressure Location Lt brachial Lt brachial Position Sitting Sitting Respiration 18 16 Pulse 71 75 Pulse Source Monitor Monitor Temp 96.5 F L 97.7 F L Temperature Source Temporal Artery Temporal Artery Pulse Oximetry (%) 99 97 Oxygen Delivery Method room air room air Intake Visit Reasons: 3 M FU Chief Complaint: Asthma [employer] Speech Language Pathologist Required: No DME Vendor: None Accompanied by: self Is patient in pain?: No Allergies clarithromycin (From Biaxin) Allergy (Verified 01/17/24 13:50) Unknown clavulanic acid (From Augmentin) Allergy (Verified 01/17/24 13:50) Unknown Sulfa (Sulfonamide Antibiotics) Allergy (Verified 01/17/24 13:50) Hives sulfacetamide Allergy (Verified 01/17/24 13:50) Unknown cefuroxime (From Ceftin) Adverse Reaction (Mild, Verified 01/17/24 13:50) Nausea Diarrhea Penicillins (PCN) Adverse Reaction (Verified 01/17/24 13:50) Nausea/Vom/Diarrhea Medications ???Medication ???Instructions ???Recorded ???Confirmed ???Type fluticasone propionate 50 2 spray intranasal QDAY PRN Nasal 10/19/18 01/17/24 History mcg/actuation nasal Congestion spray,suspension bisoprolol fumarate 5 mg tablet 5 mg PO DAILY 11/13/19 01/17/24 History cholecalciferol (vitamin D3) 25 2,000 unit PO DAILY 11/13/19 01/17/24 History mcg (1,000 unit) tablet amitriptyline 25 mg tablet 75 mg PO QHS 30 days #90 tabs 05/26/20 01/17/24 History liothyronine 5 mcg tablet (Cytomel) 5 mcg PO DAILY 05/26/20 01/17/24 History albuterol sulfate 90 mcg/actuation 2 puff inhalation Q6H PRN 08/31/23 01/17/24 History aerosol inhaler levothyroxine 100 mcg tablet 112 mcg PO QDAY 90 days #101 tabs 08/31/23 01/17/24 History benzonatate 200 mg capsule 200 mg PO TID PRN cough #90 caps 09/02/23 01/17/24 Rx cetirizine 10 mg tablet 10 mg PO DAILY PRN allergy 10/12/23 01/17/24 Rx symptoms #90 tabs fluticasone 500 mcg-salmeterol 50 1 inh inhalation BID #60 ea 10/12/23 01/17/24 Rx mcg/dose blistr powdr for inhalation (Kayden Contreras) hydrochlorothiazide 12.5 mg tablet 12.5 mg PO DAILY 01/17/24 01/17/24 History montelukast 10 mg tablet 10 mg PO DAILY 01/17/24 01/17/24 History Have you fallen in the past year?: No PFSH Medical History Asthmatic bronchitis with acute exacerbation Hypothyroidism Essential (primary) hypertension PND (post-nasal drip) Pneumonia Bronchitis Migraine Non-productive cough Sinusitis Seasonal allergies Asthma Tachycardia Cardiovascular stress test abnormal Surgical History History of sinus surgery History of carpal tunnel surgery History of left heart catheterization (05/30/17) H/O tubal ligation bunion surgery Family History Father Cancer lung Brother Hypert (more content not included)... Normal [facility] - Chemistry and C hemistry - challengeOrdered By: Dr. Epps on 09-13-2022 Free T4 [Mass/Vol] 1.41 ng/dL 0.76-1.46 [facility] No Panel InformationOrdered By: Dr. Epps on 09-13-2022 Free Triiodothyronine (T3) pg/dL 3.0 pg/mL 2.18-3.98 [facility] Thyroid Stimulating Hormone (TSH) 0.44 uIU/mL 0.358-3.74 [facility] CNOVon 08-13-2022 CNOV Office Visit (UCWSTR) ---- MELISSA FOSTER ([id number]) 1955 F Date Time Provider Department 08/13/22 8:45 AM ABDULAZIZ MURO [facility] During your visit today, we recorded the following information about you: KEITH Li 08/13/2022 8:59 AM Signed Epic Downtime. See scanned document for documentation. Allergies As of Date: 08/13/2022 Noted Allergy Reaction BIAXIN (CLARITHROMYCIN) 09/13/2013 8 - GI Upset ERYTHROMYCIN 09/13/2013 8 - GI Upset SULFA (SULFONAMIDE ANTIBIOTICS) 08/31/2006 4 - Hives Date Reviewed: 05/15/2022 Reviewed by: Mariah Molina MA - Fully Assessed Primary Visit Diagnosis:Sinobronc hitis [J32.9, J40] Other Visit Diagnosis:Sore throat [J02.9] Order(s):doxycyclin e monohydrate 100 mg tabletTake 1 tablet by mouth twice daily for 5 days.Disp: 10 tabletRfl: 0 brompheniramine-pse udoephedrine (RYNEX PSE,VALU-DIAN) 1-15 mg/5 mL liqdTake 5 mL by mouth four times daily.Disp: 473 mLRfl: 0 STREP A MOLECULAR (POC) [5717252] Order #: [id number] STREP A MOLECULAR (POC) [3822165] Order #: [id number]. #:[id number] Prescriptions as of 08/18/2022 - doxycycline monohydrate 100 mg tablet Take 1 tablet by mouth twice daily for 5 days. - brompheniramine-pse udoephedrine (RYNEX PSE,VALU-DIAN) 1-15 mg/5 mL liqd Take 5 mL by mouth four times daily. - bisoprolol (ZEBETA) 5 mg tablet bisoprolol fumarate 5 mg tablet Active 5 MG daily November 08, 2017 1:38pm - amitriptyline (ELAVIL) 75 mg tablet - Fluticasone Furoate 27.5 mcg/actuation nasal spray Use 2 Sprays in each nostril once daily. - benzonatate (TESSALON PERLE) 100 mg capsule Take 1-2 capsules by mouth three times daily as needed. - codeine-guaiFENesin (ROBITUSSIN AC) 10-100 mg/5 mL syrup Take 5-10 mL by mouth four times daily as needed for Cough. May cause drowsiness. - losartan (COZAAR) 100 mg tablet Take 100 mg by mouth once daily. - BUDESONIDE/FORMOTER OL FUMARATE (SYMBICORT INHALATION) Inhale as instructed. - liothyronine (CYTOMEL) 5 mcg tablet - codeine-guaiFENesin (ROBITUSSIN AC) 10-100 mg/5 mL syrup Take 5-10 mL by mouth four times daily as needed for Cough. May cause drowsiness. - levothyroxine (SYNTHROID) 112 mcg tablet Take 1 tablet by mouth once daily. - ergocalciferol, vitamin D2, 50,000 unit capsule Take 1 capsule by mouth once each week. - lisinopril 20 mg tablet Take 20 mg by mouth once daily. - venlafaxine ER (EFFEXOR XR) 150 mg 24 hr capsule Take 150 mg by mouth once daily. - zolpidem (AMBIEN CR) 6.25 mg CR tablet Take 12.5 mg by mouth at bedtime as needed. - FEXOFENADINE HCL (TREVON ORAL) Take 1 tablet by mouth as needed. - FIORINAL 325 MG-40 MG-50 MG CAP use as directed 2 at night for migraines Problem List As Of Date 08/13/2022 Noted Resolved Unspecified vitamin D deficiency [E55.9] 09/13/2013 Obesity (BMI 35.0-39.9 without comorbidity) [E6*09/13/2013 Hypothyroid [E03.9] 09/13/2013 Prescriptions ordered this encounter Disp Refills Start End DOXYCYCLINE MONOHYDRATE 100 MG TABLET 10 t* 0 08/13/2022 08/18/2022 Route: ORAL Sig: Take 1 tablet by mouth twice daily for 5 days. BROMPHENIRAMINE-PSE UDOEPHEDRINE 1 MG* 473 * 0 08/13/2022 Route: ORAL Sig: Take 5 mL by mouth four times daily. Encounter Status:Closed by ABDULAZIZ MURO on 08/13/22 [facility] 08-13-2022 [facility] Telephone (UCTR) ---- MELISSA FOSTER ([id number]) 1955 F Date Time Provider Department 08/13/22 ABDULAZIZ MURO [facility] During your visit today, we recorded the following information about you: Alissa Smith RN 08/13/2022 11:47 AM Signed Patient is having trouble filling brompheniramine-pse udoephedrine (RYNEX PSE,VALU-DIAN) 1-15 mg/5 mL liquid at [facility]. Detailed message left for patient with the following: Patient can either take Mucinex OTC and pseudaphed following the directions on packet. Request pharmacy to transfer prescription once she finds a pharmacy that carries prescription. or Call back once she finds a pharmacy with it in stock and EC will E-script to that pharmacy per provider that patient seen in EC. Alissa Smith RN Allergies As of Date: 08/13/2022 Noted Allergy Reaction BIAXIN (CLARITHROMYCIN) 09/13/2013 8 - GI Upset ERYTHROMYCIN 09/13/2013 8 - GI Upset SULFA (SULFONAMIDE ANTIBIOTICS) 08/31/2006 4 - Hives Date Reviewed: 05/15/2022 Reviewed by: Mariah Molina MA - Fully Assessed Reason for Visit: EC--Medication Problem [Other] Prescriptions as of 08/13/2022 - doxycycline monohydrate 100 mg tablet Take 1 tablet by mouth twice daily for 5 days. - brompheniramine-pse udoephedrine (RYNEX PSE,VALU-DIAN) 1-15 mg/5 mL liqd Take 5 mL by mouth four times daily. - bisoprolol (ZEBETA) 5 mg tablet bisoprolol fumarate 5 mg tablet Active 5 MG daily November 08, 2017 1:38pm - amitriptyline (ELAVIL) 75 mg tablet - Fluticasone Furoate 27.5 mcg/actuation nasal spray Use 2 Sprays in each nostril once daily. - benzonatate (TESSALON PERLE) 100 mg capsule Take 1-2 capsules by mouth three times daily as needed. - codeine-guaiFENesin (ROBITUSSIN AC) 10-100 mg/5 mL syrup Take 5-10 mL by mouth four times daily as needed for Cough. May cause drowsiness. - losartan (COZAAR) 100 mg tablet Take 100 mg by mouth once daily. - BUDESONIDE/FORMOTER OL FUMARATE (SYMBICORT INHALATION) Inhale as instructed. - liothyronine (CYTOMEL) 5 mcg tablet - codeine-guaiFENesin (ROBITUSSIN AC) 10-100 mg/5 mL syrup Take 5-10 mL by mouth four times daily as needed for Cough. May cause drowsiness. - levothyroxine (SYNTHROID) 112 mcg tablet Take 1 tablet by mouth once daily. - ergocalciferol, vitamin D2, 50,000 unit capsule Take 1 capsule by mouth once each week. - lisinopril 20 mg tablet Take 20 mg by mouth once daily. - venlafaxine ER (EFFEXOR XR) 150 mg 24 hr capsule Take 150 mg by mouth once daily. - zolpidem (AMBIEN CR) 6.25 mg CR tablet Take 12.5 mg by mouth at bedtime as needed. - FEXOFENADINE HCL (TREVON ORAL) Take 1 tablet by mouth as needed. - FIORINAL 325 MG-40 MG-50 MG CAP use as directed 2 at night for migraines Problem List As Of Date 08/13/2022 Noted Resolved Unspecified vitamin D deficiency [E55.9] 09/13/2013 Obesity (BMI 35.0-39.9 without comorbidity) [E6*09/13/2013 Hypothyroid [E03.9] 09/13/2013 Encounter Status:Closed by ALISSA SMITH on 08/13/22 Normal [facility] Absolute lymphocyte countOrd ered By: Dr. Epps on 08-02-2022 Lymphocytes Auto (Unsp spec) [#/Vol] 3.00 10*3/uL 0.83-4.51 [facility] Basophil percentageOrdered B y: Dr. Epps on 08-02-2022 Basophils/100 WBC (Bld) 0.9 % 0-1 [facility] Bilirubin [Mass/Vol] 0.30 mg/dL 0.20-1.00 [facility] Comment on above: For patients on eltr ombopag therapy, use of Dimension [place] TBIL is not recommended. Chloride [Moles/Vol] 108 mmol/L 98-107 [facility] Eosinophils/100 WBC (Bld) 14.1 % 0-5 [facility] Glucose [Mass/Vol] 83 mg/dL 74-106 [facility] Neutrophils (Bld) [#/Vol] 4.2 10*3/uL 2.0-7.7 [facility] Neutrophils/100 WBC (Bld) 43.8 % 47-70 [facility] Potassium [Moles/Vol] 3.8 mmol/L 3.5-5.[address] [facility] Protein [Mass/Vol] 7.3 g/dL 6.4-8.2 [facility] Sodium [Moles/Vol] 141 mmol/L 136-145 [facility] WBC (Bld) [#/Vol] 9.6 10*3/uL 4.4-11.0 [facility] Blood erythrocytes count (nu mber/volume)Ordered By: Dr. Epps on 08-02-2022 RBC (Bld) [#/Vol] 4.26 10*6/uL 4.2-5.4 [facility] Blood hemoglobin measurement (mass/volume)Ordered By: Dr. Epps on 08-02-2022 Hemoglobin (Bld) [Mass/Vol] 13.1 g/dL 12.0-15.0 [facility] Blood lymphocytes/100 leukoc ytesOrdered By: Dr. Epps on 08-02-2022 Lymphocytes/100 WBC (Bld) 31.4 % 19-41 [facility] Blood monocytes/100 leukocyt esOrdered By: Dr. Epps on 08-02-2022 Monocytes/100 WBC (Bld) 9.4 % 0-10 [facility] Blood platelet mean volumeOr dered By: Dr. Epps on 08-02-2022 Platelet mean volume (Bld) [Entitic vol] 9.9 fL 6.2-12.0 [facility] Determination of erythrocyte mean corpuscular volume (MCV)Ordered By: Dr. Epps on 08-02-2022 MCV (RBC) [Entitic vol] 94.4 fL 81-99 [facility] Hematocrit Auto (Bld) [Volum e fraction]Ordered By: Dr. Epps on 08-02-2022 Hematocrit (Bld) [Volume fraction] 40.2 % 37-47 [facility] Laboratory - Chemistry and C hemistry - challengeOrdered By: Dr. Epps on 08-02-2022 ALP [Catalytic activity/Vol] 89 U/L 45-117 [facility] ALT [Catalytic activity/Vol] 31 U/L 13-56 [facility] CO2 [Moles/Vol] 26.0 mmol/L 21.0-32.0 [facility] Free T4 [Mass/Vol] 1.29 ng/dL 0.76-1.46 [facility] Globulin (S) [Mass/Vol] 4.0 g/dL 2.2-4.2 [facility] Urea nitrogen/Creatinine [Mass ratio] 11.0 mg/mg 10-20 [facility] Laboratory - Hematology and Cell countsOrdered By: Dr. Epps on 08-02-2022 Erythrocyte distribution width (RBC) [Entitic vol] 45.5 fL 35.1-43.9 [facility] Erythrocyte distribution width (RBC) [Ratio] 13.2 % 11.6-14.6 [facility] Immature granulocytes/100 WBC (Bld) 0.400 % 0.0-0.9 [facility] Comment on above: IG% - Immature Granu locytes (promyelocytes, myelocytes and metamyelocytes) > 1% indicates that a LEFT SHIFT is Present. MCH (RBC) [Entitic mass] 30.8 pg 27.0-32.0 [facility] Nucleated RBC/100 WBC (Bld) [Ratio] 0 % 0-5 [facility] MCHC Auto (RBC) [Mass/Vol]Or dered By: Dr. Epps on 08-02-2022 MCHC (RBC) [Mass/Vol] 32.6 g/dL 32-[address] [facility] No Panel InformationOrdered By: Dr. Epps on 08-02-2022 Estimated GFR (MDRD) Amer 79 mL/min >60 [facility] Comment on above: GFR Calc Estimated GFR (MDRD) Non-Af Amer 65 mL/min >60 [facility] Comment on above: Non- GFR Calc Free Triiodothyronine (T3) pg/dL 3.2 pg/mL 2.18-3.98 [facility] Thyroid Stimulating Hormone (TSH) 0.28 uIU/mL 0.358-3.74 [facility] Urine Microalbumin/Creatinine Ratio 8.8 mg/g CRE <30 [facility] Vitamin D 25-Hydroxy 48.6 ng/mL [facility] Comment on above: Vitamin D 25(OH) Sta tus Range Deficiency <20 ng/mL (50nmol/L) Insufficiency 20 - 30 ng/mL (50 - 75 nmol/L) Sufficiency 30 - 100 ng/mL (75 - 250 nmol/L) Toxicity >100 ng/mL (>250 nmol/L) Platelets bldOrdered By: Dr. Epps on 08-02-2022 Platelets (Bld) [#/Vol] 363 10*3/uL 150-450 [facility] Serum or plasma albumin darwin urement (mass/volume)Ordered By: Dr. Epps on 08-02-2022 Albumin [Mass/Vol] 3.3 g/dL 3.2-5.0 [facility] Serum or plasma albumin/glob ulin mass ratioOrdered By: Dr. Epps on 08-02-2022 Albumin/Globulin [Mass ratio] 0.8 {ratio} 0.9-2.4 [facility] Serum or plasma calcium darwin urement (mass/volume)Ordered By: Dr. Epps on 08-02-2022 Calcium [Mass/Vol] 9.1 mg/dL 8.5-10.1 [facility] Serum or plasma creatinine m easurement (mass/volume)Ordered By: Dr. Epps on 08-02-2022 Creatinine [Mass/Vol] 0.91 mg/dL 0.55-1.[address] [facility] Comment on above: The validity of the calculated GFR & GFRAA in patients over 70 years has not been determined. Clinical correlation is essential. Serum or plasma urea nitroge n measurement (mass/volume)Ordered By: Dr. Epps on 08-02-2022 Urea nitrogen [Mass/Vol] 10 mg/dL 7-18 [facility] Thin prep Papanicolaou smear with manual screeningOrdered By: Dr. Epps on 08-02-2022 Thin prep Papanicolaou smear with manual screening 19 U/L 15-37 [facility] Thin prep Papanicolaou smear with manual screening 7 5-15 [facility] Thin prep Papanicolaou smear with manual screening 5.6 mg/L NO RANGE EST. [facility] Urine creatinine measurement (mass/volume)Ordered By: Dr. Epps on 08-02-2022 Creatinine (U) [Mass/Vol] 64.00 mg/dL NO RANGE EST. [facility] CNOVon 05-15-2022 CNOV Office Visit (WSTR) ---- MELISSA FOSTER ([id number]) 1955 F Date Time Provider Department 05/15/22 1:00 PM CYNDIE CALLEJAS During your visit today, we recorded the following information about you: Temperature Pulse Respiration Blood pressure 99 degrees 97/minute 21/minute 140/90 Weight 88.1 kg Cyndie Callejas APRN.KAYAK MAKER 05/15/2022 1:59 PM Signed Subjective HPI Melissa presents with a two week hx of sinus congestion, face pain, and pnd, she states those symptoms have started to improve but over the last few days she has developed a very harsh cough, it is non- productive,. She has been having a low grade temp, she is eating and drinking well, she is doing her normal daily actives otherwise. Blood pressure 140/90, pulse 97, temperature 37.2 ?C (99 ?F), resp. rate 21, weight 88.1 kg (194 lb 3.2 oz), SpO2 95 %. PAST MEDICAL HISTORY Diagnosis Date Hyperlipidemia PAST SURGICAL HISTORY Procedure Laterality Date DILATION AND CURETTAGE DXAND/THER NONOBSTETRIC Dilation AND curettage PAST SURGICAL HISTORY OF bladder sling PAST SURGICAL HISTORY OF left foot surgery ALLERGIES Biaxin [Clarithromycin], Erythromycin, and Sulfa (Sulfonamide Antibiotics) MEDICATIONS bisoprolol (ZEBETA) 5 mg tablet bisoprolol fumarate 5 mg tablet Active 5 MG daily November 08, 2017 1:38pm amitriptyline (ELAVIL) 75 mg tablet Fluticasone Furoate 27.5 mcg/actuation nasal spray Use 2 Sprays in each nostril once daily. liothyronine (CYTOMEL) 5 mcg tablet levothyroxine (SYNTHROID) 112 mcg tablet Take 1 tablet by mouth once daily. FIORINAL 325 MG-40 MG-50 MG CAP use as directed 2 at night for migraines amoxicillin-clavula aisha acid (AUGMENTIN) 875-125 mg per tablet Take 1 tablet by mouth twice daily for 5 days. benzonatate (TESSALON PERLE) 100 mg capsule Take 1-2 capsules by mouth three times daily as needed. (Patient not taking: Reported on 05/15/2022) codeine-guaiFENesin (ROBITUSSIN AC) 10-100 mg/5 mL syrup Take 5-10 mL by mouth four times daily as needed for Cough. May cause drowsiness. (Patient not taking: Reported on 05/15/2022) losartan (COZAAR) 100 mg tablet Take 100 mg by mouth once daily. (Patient not taking: Reported on 05/15/2022) BUDESONIDE/FORMOTER OL FUMARATE (SYMBICORT INHALATION) Inhale as instructed. (Patient not taking: Reported on 05/15/2022) codeine-guaiFENesin (ROBITUSSIN AC) 10-100 mg/5 mL syrup Take 5-10 mL by mouth four times daily as needed for Cough. May cause drowsiness. ergocalciferol, vitamin D2, 50,000 unit capsule Take 1 capsule by mouth once each week. lisinopril 20 mg tablet Take 20 mg by mouth once daily. venlafaxine ER (EFFEXOR XR) 150 mg 24 hr capsule Take 150 mg by mouth once daily. (Patient not taking: Reported on 05/15/2022) zolpidem (AMBIEN CR) 6.25 mg CR tablet Take 12.5 mg by mouth at bedtime as needed. (Patient not taking: Reported on 05/15/2022) FEXOFENADINE HCL (TREVON ORAL) Take 1 tablet by mouth as needed. FAMILY HISTORY Problem Relation Age of Onset Cancer Brother melanoma Hypertension Brother Hypertension Father Ischemic Heart Disease Maternal Grandmother Social History Tobacco Use Smoking status: Never Smokeless tobacco: Never Substance Use Topics Alcohol use: Yes Comment: socially Drug use: No Review of Systems HENT: Positive for congestion and sinus pain. Respiratory: Positive for cough. All other systems reviewed and are negative. Objective Physical Exam Constitutional: General: She is in acute distress. Appearance: Normal appearance. HENT: Head: Normocephalic and atraumatic. Right Ear: Tympanic membrane, ear canal and external ear normal. Left Ear: Tympanic membrane, ear canal and external ear normal. Nose: Congestion present. Comments: Facial tenderness Mouth/Throat: Mouth: Mucous membranes are dry. Pharynx: No oropharyngeal exudate or posterior oropharyngeal erythema. Eyes: Extraocular Movements: Extraocular movements intact. Pupils: Pupils are equal, round, and reactive to light. Cardiovascular: Rate and Rhythm: Normal rate and regular rhythm. Pulmonary: Effort: Pulmonary effort is normal. No respiratory distress. Breath sounds: No stridor. Rhonchi (slight noted in left lower lobe) present. No wheezing or rales. Chest: Chest wall: No tenderness. Abdominal: General: Abdomen is flat. Palpations: Abdomen is soft. Musculoskeletal: General: Normal range of motion. Skin: General: Skin is warm. Neurological: General: No focal deficit present. Mental Status: She is alert and oriented to person, place, and time. ASSESSMENT/PLAN: 1. Acute cough - ICD9: 786.2, ICD10: R05.1 Increase fluids Start antibiotic Feb - COVID WITH FLUA+B, ROUTINE - XR CHEST 2V FRONTAL/LAT Tuesday Report to ED if worsening Cyndie Callejas, TRIMMING CUTTER MACHINE.KAYAK MAKER Allergies As of Date: 05/15/2022 Noted Allergy Reaction BIAXIN (CLA (more content not included)... Normal [facility] Vital Signs Date Time Vital Sign Value Performing Clinician Faci lity 07-09-2024 10:05-0500 Body temperature 97.1 [degF] Dr. Elias Epps MD Work Phone: [facility] 07-09-2024 10:05-0500 Diastolic blood pressure 70 mm[Hg] Dr. Elias Epps MD Work Phone: [facility] 07-09-2024 10:05-0500 Heart rate 73 /min Dr. Elias Epps MD Work Phone: [facility] 07-09-2024 10:05-0500 Respiratory rate 16 /min Dr. Elias Epps MD Work Phone: [facility] 07-09-2024 10:05-0500 SaO2% (BldA) [Mass fraction] 98 % Dr. Elias Epps MD Work Phone: [facility] 07-09-2024 10:05-0500 Systolic blood pressure 140 mm[Hg] Dr. Elias Epps MD Work Phone: [facility] 07-09-2024 07:23-0500 Body height 160.[address] Elias Epps MD Work Phone: [facility] 07-09-2024 07:23-0500 Body mass index (BMI) [Ratio] 34.2 kg/m2 Dr. Elias Epps MD Work Phone: [facility] 07-09-2024 07:23-0500 Body weight 87.[address] Elias Epps MD Work Phone: [facility] 08-31-2023 05:54-0500 Body height 160.[address] Elias Epps Work Phone: [phone] [place] [address] 08-31-2023 05:54-0500 Body mass index (BMI) [Ratio] 34.2 kg/m2 Dr. Elias Epps Work Phone: [facility] 08-31-2023 05:54-0500 Body temperature 98.4 [degF] Dr. Elias Epps Work Phone: [facility] 08-31-2023 05:54-0500 Body weight 87.[address] Elias Epps Work Phone: [facility] 08-31-2023 05:54-0500 Diastolic blood pressure 84 mm[Hg] Dr. Elias Epps Work Phone: [facility] 08-31-2023 05:54-0500 Heart rate 79 /min Dr. Elias Epps Work Phone: [facility] 08-31-2023 05:54-0500 Respiratory rate 18 /min Dr. Elias Epps Work Phone: [facility] 08-31-2023 05:54-0500 SaO2% (BldA) [Mass fraction] 95 % Dr. Elias Epps Work Phone: [facility] 08-31-2023 05:54-0500 Systolic blood pressure 135 mm[Hg] Dr. Elias Epps Work Phone: [facility] 08-28-2022 12:29-0500 Body height 160.[address] Elias Epps Work Phone: [facility] 08-28-2022 12:29-0500 Body mass index (BMI) [Ratio] 35 kg/m2 Dr. Elias Epps Work Phone: [facility] 08-28-2022 12:29-0500 Body temperature 98.6 [degF] Dr. Elias Epps Work Phone: [facility] 08-28-2022 12:29-0500 Body weight 89.[address] Elias Epps Work Phone: [facility] 08-28-2022 12:29-0500 Diastolic blood pressure 78 mm[Hg] Dr. Elias Epps Work Phone: [facility] 08-28-2022 12:29-0500 Heart rate 116 /min Dr. Elias Epps Work Phone: [facility] 08-28-2022 12:29-0500 Respiratory rate 14 /min Dr. Elias Epps Work Phone: [facility] 08-28-2022 12:29-0500 SaO2% (BldA) [Mass fraction] 96 % Dr. Elias Epps Work Phone: [facility] 08-28-2022 12:29-0500 Systolic blood pressure 174 mm[Hg] Dr. Elias Epps Work Phone: [facility] 05-15-2022 13:33-0400 Body temperature 99 [degF] Cyndie Calltessie TRIMMING CUTTER MACHINE.KAYAK MAKER Work Phone: [facility] 05-15-2022 13:33-0400 Body weight 88.09 kg Cyndie Calltessie TRIMMING CUTTER MACHINE.KAYAK MAKER Work Phone: [facility] 05-15-2022 13:33-0400 Diastolic blood pressure 90 mm[Hg] Cyndie Callejas TRIMMING CUTTER MACHINE.KAYAK MAKER Work Phone: [facility] 05-15-2022 13:33-0400 Heart rate 97 /min TRIMMING CUTTER MACHINE.KAYAK MAKER Work Phone: [facility] 05-15-2022 13:33-0400 Respiratory rate 21 /min TRIMMING CUTTER MACHINE.KAYAK MAKER Work Phone: [facility] 05-15-2022 13:33-0400 SaO2% (BldA) [Mass fraction] 95 % TRIMMING CUTTER MACHINE.KAYAK MAKER Work Phone: [facility] 05-15-2022 13:33-0400 Systolic blood pressure 140 mm[Hg] TRIMMING CUTTER MACHINE.KAYAK MAKER Work Phone: [facility] Encounters Encounter Date Encounter Type Care Provider Facility Start: 12-10-2024 End: 12-10-[address] Elias Epps MD Work Phone: [facility] Work Phone: Start: 12-10-2024 End: 12-10-[address] Elias Epps MD -Laboratory [place] Work Phone: Start: 12-10-2024 End: 12-10-2024 ambulatory Elias Epps Facility:[facility] Start: 10-01-2024 End: 10-01-[address] Elias Epps MD Work Phone: [facility] Work Phone: Start: 10-01-2024 End: 10-01-[address] [facility] Start: 10-01-2024 End: 10-01-2024 ambulatory Elias Epps Facility:[facility] Start: 07-09-2024 Non-patient / Non-visit Dr. Steven Muse MD -[facility] Start: 07-09-2024 End: 07-09-2024 Admission to same day surgery center Dr. Karen Muse MD -Endoscopy Work Phone: Start: 07-09-2024 End: 07-09-2024 ambulatory Karen Muse Facility:[facility] Start: 06-25-2024 End: 06-25-[address] Elias Epps MD -Outpatient Breast Imaging Work Phone: Start: 06-25-2024 End: 06-25-2024 ambulatory Elias Epps Facility:[facility] Start: 05-04-2024 ambulatory Betzaida Homero Facility:[facility] Start: 04-06-2024 End: 04-06-2024 ambulatory Elias Epps Facility:[facility] Start: 01-17-2024 End: 01-17-2024 ambulatory Elias Epps Facility:[facility] Start: 09-19-2023 End: 09-19-[address] Elias Epps Work Phone: [facility] Work Phone: Start: 09-19-2023 End: 09-19-[address] Elias Epps Work Phone: [facility]-Pulmonary Services/Neurology Work Phone: Start: 08-31-2023 End: 08-31-[address] Elias Epps Work Phone: [facility]-Pulmonary Medicine [facility] Work Phone: Start: 11-25-2022 End: 11-25-[address] Elias Epps Work Phone: [facility] Work Phone: Start: 11-25-2022 End: 11-25-[address] Elias Epps Work Phone: [facility]-Physical Therapy Start: 11-18-[address] Elias Epps Work Phone: [facility]-Physical Therapy Start: 11-16-2022 End: 11-16-[address] Elias Epps Work Phone: [facility] Work Phone: Start: 11-16-2022 End: 11-16-[address] Elias Epps Work Phone: [facility], [facility] Start: 09-13-2022 End: 09-13-[address] Elias Epps Work Phone: [facility] Start: 08-28-2022 End: 08-28-[address] Elias Epps Work Phone: [facility] Start: 08-13-2022 End: 08-13-2022 ambulatory Facility:[facility] Start: 08-13-2022 End: 08-13-2022 Patient encounter procedure Abdulaziz PARKER Work Phone: [facility] Comment on above: Sinobronchitis (Prim ilaina Dx); Sore throat Start: 08-02-2022 End: 08-02-2022 ambulatory [facility] Work Phone: Start: 08-02-2022 End: 08-02-2022 Patient encounter procedure [facility] Start: 05-15-2022 End: 05-15-2022 ambulatory Facility:[facility] Start: 05-15-2022 End: 05-15-2022 Patient encounter procedure Cyndie Callejas APRN.KAYAK MAKER Work Phone: [facility] Comment on above: Acute cough (Primary Dx) Procedures Date Procedure Procedure Detail Performing Clinician Start: 06-25-2024 Screening mammography Jennie Epps MD Work Phone: Start: 11-16-2022 CT of upper limb wit hout contrast Dr. Elias Epps Work Phone: Start: 08-31-2006 Mammography Cyndie kurtz APRN.KAYAK MAKER Work Phone: Plan of Treatment Date Care Activity Detail Author Start: 07-09-2024 Colonoscopy w/biopsy single/multiple COLONOSCOPY AND BIOPSY [facility] Start: 07-09-2024 Patient discharge [facility] Start: 07-11-2022 ADVANCE DIRECTIVE DISCUSSION ADVANCE DIRECTIVE DISCUSSION [facility] Start: 07-11-2022 DEPRESSION ASSESSMENT DEPRESSION ASS ESSMENT [facility] Start: 03-30-2022 COVID-19 VACCINE (5 - Booster for Pfizer series) COVID-19 VACCINE (5 - Booster for Pfizer series) [facility] Start: 07-11-2021 ADVANCE DIRECTIVE DISCUSSION ADVANCE DIRECTIVE DISCUSSION [facility] Start: 07-11-2021 DEPRESSION ASSESSMENT DEPRESSION ASS ESSMENT [facility] Start: 09-21-2018 LIPID SCREEN LIPID SCREEN [facility] Start: 2018 BONE DENSITY BONE DENSITY [facility] Start: 2018 PNEUMOCOCCAL: 65+ (1 - PCV) PNEUMOCOCCAL: 65+ (1 - PCV) [facility] Start: 08-31-2007 Mammography MAMMOGRAM [facility] Start: 03-03-2007 DIABETES SCREEN DIABETES SCREEN [facility] Start: 2003 SHINGRIX VACCINE (1 of 2) SHINGRIX VACCINE (1 of 2) [facility] Start: 1998 COLOGUARD (FIT-DNA) COLOGUARD (FIT-D NA) [facility] Start: 1998 Colonoscopy COLONOSCOPY [facility] Start: 1998 COLORECTAL CANCER SCREENING COLORECTAL CANCER SCREENING [facility] Start: [address] COLONOGRAPHY [facility] Start: 1998 FECAL OCCULT BLOOD FECAL OCCULT BLOO D [facility] Start: 1998 SIGMOIDOSCOPY SIGMOIDOSCOPY [facility] Start: 1972 Urine microalbumin profile DTAP,TDAP,TD (1 - Tdap) [facility] Start: 1971 ANNUAL PCP TEAM ROBOTYPE OPERATOR AISHA DISEASE VISIT ANNUAL PCP TEAM CHRONIC DISEASE VISIT [facility] Start: 1971 HEPATITIS C SCREENING HEPATITIS C [facility] Influenza virus A an d B RNA and SARS-CoV-2 (COVID-19) N gene panel - Respiratory specimen by DEVORAH with probe detection COVID WITH FLUA+B, ROUTINE Microbiology Routine Acute cough Ordered: 05/15/2022 [facility] Work Phone: Comment on above: Ordered: 05/15/2022 Patient referral [facility] Work Phone: End: 06-14-2023 Radiologic exam chest 2 views XR CHEST 2V FRONTAL/LAT Radiology Routine Acute cough 1 Occurrences starting 05/15/2022 until 06/14/2023 [facility] Work Phone: Comment on above: 1 Occurrences starti ng 05/15/2022 until 06/14/2023 STREP A MOLECULAR (POC) STREP A MOLECULAR (POC) Microbiology Routine Sore throat Ordered: 08/13/2022 [facility] Work Phone: Comment on above: Ordered: 08/13/2022 Payers Date Payer Category Payer Self-pay [id number] 2023 Private Health Insurance [id number] 2021 Unknown MMO MMO [employer] [id number] 2021-Present [phone] [address] [place] [address] PPO [id number] 2014 Unknown [id number] Medicare MEDICARE PART A B [id number] 1 [id number] Unknown [id number] 62 Unknown [id number] 62 Unknown [id number] 62 Unknown [id number] 62 Unknown [id number] 62 Unknown [id number] 62 Unknown [id number] 62 Unknown [id number] 62 Social History Date Type Detail Facility Start: 09-13-2013 End: 07-09-2024 Tobacco smoking status NHIS Never smoked tobacco [facility] Start: 09-13-2013 Tobacco use and exposure Smokeless tobacco non-user [facility] Start: 05-15-2022 Alcohol intake Current drinke r of alcohol (finding) [facility] Start: 1955 Sex Assigned At Not on file [facility] Start: 09-17-2020 End: 08-31-2023 Tobacco smoking status NHIS Unknown if ever smoked [facility] Start: 06-22-2019 Non-smoker [facility] Start: 1955 Sex Assigned At Female [facility] Start: 10-06-2024 Sex Female (finding) [facility] NEGATED: Highlighted row Not [facility] Medical Equipment Procedure Code Equipment Code Equipment Origin al Text Equipment Identifier Dates Fusion, IP joint K-WIRE,.[id number] DBL [place] THR FDA Start: 10-24-2018 Fusion, IP joint K-WIRE,.[id number] DBL [place] THR FDA Start: 10-24-2018 Fusion, IP joint K-WIRE,.[id number] DBL [place] THR FDA Start: 10-24-2018 Fusion, IP joint K-WIRE,.[id number] DBL [place] THR FDA Start: 10-24-2018 Fusion, IP joint K-WIRE,.[id number] DBL [place] THR FDA Start: 10-24-2018 Fusion, IP joint K-WIRE,.[id number] DBL [place] THR FDA Start: 10-24-2018 Goals Date Patient Goal Desired Activity /State Mental Status Date Assessment Result Facility 07-09-2024 Cognitive function Voice/Name [facility] Work Phone: Clinical Notes 05-15-2022 to 07-09-2024 Note Date & Type Note Facility 07-09-2024 Evaluation note Diagnosis Onset Date Resolution Personal history of colonic polyps acute July 09, 2 024 7:09am [facility] Work Phone: [phone] [id number] [facility] Medical Records Department [address] [place] [address] History Physical Exam 07/09/24 0721 MR#: [id number] Acct: [id number] Name: MELISSA FOSTER Rep #: [id number] : 1955 69 From: Karen Muse MD PCP: Dr. Elias Epps MD Status:[facility] Location: [place] [id number] HPI - General General Date of Service: 07/09/24 HPI Narrative MELISSA FOSTER, is a 69 F who presents for screening colonoscopy. Patient last colonoscopy was 06/26/[address] Hernandez polyp was found. Recommended 5 years. Patient denies any chronic abdominal pain/nausea/vomiting/reflux. Patient has bowel movements daily/every other day denies any blood. [facility] Medical History Wears hearing aid Wears glasses Post-menopausal Arthritis Easy bruising Back pain Injury of head and neck Non-smoker Shortness of breath on exertion Leg cramps History of stress test History of echocardiogram History of pain when walking History of edema Cardiology follow-up encounter Personal history of colonic polyps Asthmatic bronchitis with acute exacerbation Hypothyroidism Essential (primary) hypertension PND (post-nasal drip) Migraine Non-productive cough Asthma Home Medications ???Medication ???Instructions ???Recorded ???Last Taken ???Type fluticasone propionate 50 2 spray intranasal QDAY PRN Nasal 10/19/18 Unknown History mcg/actuation nasal Congestion spray,suspension bisoprolol fumarate 5 mg tablet 5 mg PO QHS 11/13/19 07/08/24 History cholecalciferol (vitamin D3) 25 1,000 unit PO DAILY 11/13/19 Unknown History mcg (1,000 unit) tablet amitriptyline 25 mg tablet 75 mg PO QHS 30 days #90 tabs 05/26/20 Unknown History liothyronine 5 mcg tablet (Cytomel) 5 mcg PO DAILY 05/26/20 Unknown History benzonatate 200 mg capsule 200 mg PO TID PRN cough #90 caps 09/02/23 Unknown Rx fluticasone 500 mcg-salmeterol 50 1 inh inhalation BID #60 ea 10/12/23 Unknown Rx mcg/dose blistr powdr for inhalation (Wixela Inhub) ibuprofen 200 mg tablet 200 mg PO Q6H PRN pain 05/04/24 Unknown History levothyroxine 100 mcg tablet 100 mcg PO QDAY 90 days #90 tabs 05/04/24 Unknown History albuterol sulfate 90 mcg/actuation 2 puff inhalation Q6H PRN 06/08/24 Unknown Rx aerosol inhaler shortness of breath or wheezing #8.5 grams Allergy/AdvReac Type Severity Reaction Status Date / Time clarithromycin (From Biaxin) Allergy Nausea/Vom/ Verified 07/09/24 07:21 Diarrhea clavulanic acid (From Allergy Nausea Verified 07/09/24 07:21 Augmentin) Sulfa (Sulfonamide Allergy Hives Verified 07/09/24 07:21 Antibiotics) sulfacetamide Allergy Hives Verified 07/09/24 07:21 cefuroxime (From Ceftin) AdvReac Mild Nausea Verified 07/09/24 07:21 Diarrhea erythromycin base AdvReac Nausea/Vom/ Verified 07/09/24 07:21 Diarrhea Penicillins (PCN) AdvReac Nausea/Vom/ Verified 07/09/24 07:21 Diarrhea Family History Father Cancer lung Brother Hypertension Cancer skin Brother Cancer lung Surgical History Hx of toe surgery Hx of colonoscopy History of sinus surgery History of carpal tunnel surgery History of left heart catheterization (05/30/17) H/O tubal ligation bunion surgery Social History household members: spouse current occupational status: retired Smoking Status: Never smoker second hand exposure: No alcohol intake: never substance use type: does not use caffeine: No what type of physical activity do you participate in: none seatbelt use: always do you feel safe at home: Yes additional social history: -Jacob 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[employer] ([employer]) Past Medical/Surgical History Planned Operation Planned Operative Procedure(s): CSCOPE OA S.O.S: No Previous Hospitalizations/Surgeries HX Hospitalizations: No HX of Surgeries: BUNION SURGERY, TUBAL LIGATION, SINUPLASTY Any Problems With Anesthesia: Yes (SLOW TO AWAKEN) You/Your Family Experience Fever (Hyperthermia) With Anes: No Cholinesterase deficiency: No Cardiovascular Hx Chest Pain within Last 2 months: Yes Hx of Irregular Heartbeat and/or Afib: Yes Hx Heart Attack: No Hx Congestive Heart Failure: No Hx Rheumatic Fever: No Hx Hypertension: Yes (CONTROLLED WITH MED) Hx Internal Defibrillator: No Hx Pacemaker: No Hx Cardiac Catheterization: No Hx Cardiac Surgery/Stents/Etc.: No Hx Stress Test: Yes Hx Pain in Legs when Walking/Leg Cramps: Yes (RIGHT LEG PAIN D/T BACK ISSUES) Respiratory Chronic Cough: No HX of Shortness of Breath: Yes (IN THE PAST/RESOLVED WITH WEIGHT LOSS) Hoarseness: No Hx Chronic Obstruc (more content not included)...[facility] 12-13-2022 Discharge summary Author Dell Hernandez [facility] December 13, 2022 3:41pm Note Date/Time December 13, 2022 3:41p m [facility] Physical Therapy [facility] [facility] [place] [address] / REHABILITATION SERVICES DISCHARGE SUMMARY MR#: [id number] Acct: [id number] Name: MELISSA FOSTER Rep #: [id number] : 1955 67 From: Dell Hernandez PT, FITO, SCS, CSCS Referring Dr.: OUT OF TOWN DOCTOR Status: REG R Insurance: [facility] SELF PAY INSURANCE It has been my pleasure to treat MELISSA FOSTER referred by FREDY MACIAS, with the diagnosis of R Plantar Fasciitis for a total of 3 visit(s). Discharge Date: 12/13/22 Please see the following information for a summary of their discharge status. Subjective: AM stiffness, soreness. Increases with prolonged walking. Better with the exercise and stretching. Right Foot Pain Intensity (Out of 10): 1 Objective/Function: Good tolerance to combination of manual therapy and exercise. Asymptomatic post session. Ankle dorsiflexion range of motion is limited bilaterally. Goal 1:: Return demo HEP Goal 2:: Decrease pain via modalities 09/17 Goal 3:: Improve strength Goal 4:: CAst for Orthotics Plan: Cast for orthotics, add ankle isolator DF, INV vaibhav Discharge Comments: Mrs. Wyatt fell in her bathroom breaking her foot. So she is non weight bearing with a cast or walking boot. We would be happy to seeher in the future if necessary If there are questions or concerns regarding this patient's physical therapy, please feel free to call me at [phone]. Thank you for the referral of thispatient. Sincerely, Dell Hernandez, PT, FITO, SCS, CSCS Balance/Gait/Functional tests - Balance/Special Test Scores Lower Extremity Functional Score: 45 <Electronically signed by Dell Hernandez PT, FITO, SCS, CSCS> 12/13/22 1541 CC: Dr. Elias Epps MD; FREDY MACIAS ~ BC Signed [facility] Work Phone: [phone]) 340-667102-03-2023 NoteHNO ID: [id number] Author: KEITH Li Service: ? Author Type: Physician Mica Washer Gluer Type: Progress Notes Filed: 08/13/2022 8:59 AM Note Text: Epic Downtime. See scanned document for documentation.[facility] 08-13-2022 History of Present illness Narrative* KEITH Li - 08/13/2022 8:59 AM EST Epic Downtime. See scanned document for documentation. [facility] Influenza virus A and B RNA and SARS-CoV-2 (COVID-19) N gene panel DEVORAH+probe (Resp)COVID 19 RESULT: SARS-CoV-2 (Agent of COVID-19) Not Detected by RT-PCR or equivalent method. fanny [id number] [employer] (SAMANTHA)_EUA This test was developed and its performance characteristics determined by [facility] [place]. This test has been authorized by FDA under an Emergency Use Authorization (EUA). This test has been validated in accordance with the FDA's Guidance Document Policy for DiagnosticsTesting in Laboratories Certified to Perform High Complexity Testing under CLIA prior to Emergency use Authorization for Coronavirus Disease 2019 during the Public Health Emergency issued on September 08, 2019. Test performed by [facility], [facility] [place], [facility] [place] [address]. INFLUENZA A PCR: Negative for Influenza A by RT-PCR INFLUENZA B PCR: Negative for Influenza B by RT-PCRCleveland Clinic Avon HospitalComment on above: Performed By: #### [id number] #### [facility] CLIA [id number] [address] [place] [address] OF [id number] NoteHNO ID: [id number] Author: Cyndie Callejas APRN.KAYAK MAKER Service: ? Author Type: Nurse Practitioner Type: Progress Notes Filed: 05/15/2022 1:59 PM Note Text: Subjective HPI Melissa presents with a two week hx of sinus congestion, face pain, and pnd, she states those symptoms have started to improve but over the last few days she has developed a very harsh cough, it is non- productive,. She has been having a low grade temp, she is eating and drinking well, she is doing her normal daily actives otherwise. Blood pressure 140/90, pulse 97, temperature 37.2 ?C (99 ?F), resp. rate 21, weight 88.1 kg (194 lb 3.2 oz), SpO2 95 %. PAST MEDICAL HISTORY Diagnosis Date Hyperlipidemia PAST SURGICAL HISTORY Procedure Laterality Date DILATION AND CURETTAGE DXAND/THER NONOBSTETRIC Dilation AND curettage PAST SURGICAL HISTORY OF bladder sling PAST SURGICAL HISTORY OF left foot surgery ALLERGIES Biaxin [Clarithromycin], Erythromycin, and Sulfa (Sulfonamide Antibiotics) MEDICATIONS bisoprolol (ZEBETA) 5 mg tablet bisoprolol fumarate 5 mg tablet Active 5 MG daily November 08, 2017 1:38pm amitriptyline (ELAVIL) 75 mg tablet Fluticasone Furoate 27.5 mcg/actuation nasal spray Use 2 Sprays in each nostril once daily. liothyronine (CYTOMEL) 5 mcg tablet levothyroxine (SYNTHROID) 112 mcg tablet Take 1 tablet by mouth once daily. FIORINAL 325 MG-40 MG-50 MG CAP use as directed 2 at night for migraines amoxicillin-clavulanic acid (AUGMENTIN) 875-125 mg per tablet Take 1 tablet by mouth twice daily for 5 days. benzonatate (TESSALON PERLE) 100 mg capsule Take 1-2 capsules by mouth three times daily as needed. (Patient not taking: Reported on 05/15/2022) codeine-guaiFENesin (ROBITUSSIN AC) 10-100 mg/5 mL syrup Take 5-10 mL by mouth four times daily as needed for Cough. May cause drowsiness. (Patient not taking: Reported on 05/15/2022) losartan (COZAAR) 100 mg tablet Take 100 mg by mouth once daily. (Patient not taking: Reported on 05/15/2022) BUDESONIDE/FORMOTEROL FUMARATE (SYMBICORT INHALATION) Inhale as instructed. (Patient not taking: Reported on 05/15/2022) codeine-guaiFENesin (ROBITUSSIN AC) 10-100 mg/5 mL syrup Take 5-10 mL by mouth four times daily as needed for Cough. May cause drowsiness. ergocalciferol, vitamin D2, 50,000 unit capsule Take 1 capsule by mouth once each week. lisinopril 20 mg tablet Take 20 mg by mouth once daily. venlafaxine ER (EFFEXOR XR) 150 mg 24 hr capsule Take 150 mg by mouth once daily. (Patient not taking: Reported on 05/15/2022) zolpidem (AMBIEN CR) 6.25 mg CR tablet Take 12.5 mg by mouth at bedtime as needed. (Patient not taking: Reported on 05/15/2022) FEXOFENADINE HCL (TREVON ORAL) Take 1 tablet by mouth as needed. FAMILY HISTORY Problem Relation Age of Onset Cancer Brother melanoma Hypertension Brother Hypertension Father Ischemic Heart Disease Maternal Grandmother Social History Tobacco Use Smoking status: Never Smokeless tobacco: Never Substance Use Topics Alcohol use: Yes Comment: socially Drug use: No Review of Systems HENT: Positive for congestion and sinus pain. Respiratory: Positive for cough. All other systems reviewed and are negative. Objective Physical Exam Constitutional: General: She is in acute distress. Appearance: Normal appearance. HENT: Head: Normocephalic and atraumatic. Right Ear: Tympanic membrane, ear canal and external ear normal. Left Ear: Tympanic membrane, ear canal and external ear normal. Nose: Congestion present. Comments: Facial tenderness Mouth/Throat: Mouth: Mucous membranes are dry. Pharynx: No oropharyngeal exudate or posterior oropharyngeal erythema. Eyes: Extraocular Movements: Extraocular movements intact. Pupils: Pupils are equal, round, and reactive to light. Cardiovascular: Rate and Rhythm: Normal rate and regular rhythm. Pulmonary: Effort: Pulmonary effort is normal. No respiratory distress. Breath sounds: No stridor. Rhonchi (slight noted in left lower lobe) present. No wheezing or rales. Chest: Chest wall: No tenderness. Abdominal: General: Abdomen is flat. Palpations: Abdomen is soft. Musculoskeletal: General: Normal range of motion. Skin: General: Skin is warm. Neurological: General: No focal deficit present. Mental Status: She is alert and oriented to person, place, and time. ASSESSMENT/PLAN: 1. Acute cough - ICD9: 786.2, ICD10: R05.1 Increase fluids Start antibiotic Feb - COVID WITH FLUA+B, ROUTINE - XR CHEST 2V FRONTAL/LAT Tuesday Report to ED if worsening Cyndie Callejas APRN.[facility]ANC[facility] History of Present illness Narrative* Cyndie Callejas APRN.MEGAN - 05/15/2022 1:50 PM EDT Subjective HPI Melissa presents with a two week hx of sinus congestion, face pain, and pnd, she states those symptoms have started to improve but over the last few days she has developed a very harsh cough, it is non- productive,. She has been having a low grade temp, she is eating and drinking well, she is doing her normal daily actives otherwise. Blood pressure 140/90, pulse 97, temperature 37.2 C (99 F), resp. rate 21, weight 88.1 kg (194 lb 3.2 oz), SpO2 95 %. PAST MEDICAL HISTORY Diagnosis Date Hyperlipidemia PAST SURGICAL HISTORY Procedure Laterality Date DILATION & CURETTAGE DX&/THER NONOBSTETRIC Dilation & curettage PAST SURGICAL HISTORY OF bladder sling PAST SURGICAL HISTORY OF left foot surgery ALLERGIES Biaxin [Clarithromycin], Erythromycin, and Sulfa (Sulfonamide Antibiotics) MEDICATIONS bisoprolol (ZEBETA) 5 mg tablet bisoprolol fumarate 5 mg tablet Active 5 MG daily November 08, 2017 1:38pm amitriptyline (ELAVIL) 75 mg tablet Fluticasone Furoate 27.5 mcg/actuation nasal spray Use 2 Sprays in each nostril once daily. liothyronine (CYTOMEL) 5 mcg tablet levothyroxine (SYNTHROID) 112 mcg tablet Take 1 tablet by mouth once daily. FIORINAL 325 MG-40 MG-50 MG CAP use as directed 2 at night for migraines amoxicillin-clavulanic acid (AUGMENTIN) 875-125 mg per tablet Take 1 tablet by mouth twice daily for 5 days. benzonatate (TESSALON PERLE) 100 mg capsule Take 1-2 capsules by mouth three times daily as needed.(Patient not taking: Reported on 05/15/2022) codeine-guaiFENesin (ROBITUSSIN AC) 10-100 mg/5 mL syrup Take 5-10 mL by mouth four times daily as needed for Cough. May cause drowsiness. (Patient not taking: Reported on 05/15/2022) losartan (COZAAR) 100 mg tablet Take 100 mg by mouth once daily. (Patient not taking: Reported on 05/15/2022) BUDESONIDE/FORMOTEROL FUMARATE (SYMBICORT INHALATION) Inhale as instructed. (Patient not taking: Reported on 05/15/2022) codeine-guaiFENesin (ROBITUSSIN AC) 10-100 mg/5 mL syrup Take 5-10 mL by mouth four times daily as needed for Cough. May cause drowsiness. ergocalciferol, vitamin D2, 50,000 unit capsule Take 1 capsule by mouth once each week. lisinopril 20 mg tablet Take 20 mg by mouth once daily. venlafaxine ER (EFFEXOR XR) 150 mg 24 hr capsule Take 150 mg by mouth once daily. (Patient not taking: Reported on 05/15/2022) zolpidem (AMBIEN CR) 6.25 mg CR tablet Take 12.5 mg by mouth at bedtime as needed. (Patient not taking: Reported on 05/15/2022) FEXOFENADINE HCL (TREVON ORAL) Take 1 tablet by mouth as needed. FAMILY HISTORY Problem Relation Age of Onset Cancer Brother melanoma Hypertension Brother Hypertension Father Ischemic Heart Disease Maternal Grandmother Social History Tobacco Use Smoking status: Never Smokeless tobacco: Never Substance Use Topics Alcohol use: Yes Comment: socially Drug use: No Review of Systems HENT: Positive for congestion and sinus pain. Respiratory: Positive for cough. All other systems reviewed and are negative. Objective Physical Exam Constitutional: General: She is in acute distress. Appearance: Normal appearance. HENT: Head: Normocephalic and atraumatic. Right Ear: Tympanic membrane, ear canal and external ear normal. Left Ear: Tympanic membrane, ear canal and external ear normal. Nose: Congestion present. Comments: Facial tenderness Mouth/Throat: Mouth: Mucous membranes are dry. Pharynx: No oropharyngeal exudate or posterior oropharyngeal erythema. Eyes: Extraocular Movements: Extraocular movements intact. Pupils: Pupils are equal, round, and reactive to light. Cardiovascular: Rate and Rhythm: Normal rate and regular rhythm. Pulmonary: Effort: Pulmonary effort is normal. No respiratory distress. Breath sounds: No stridor. Rhonchi (slight noted in left lower lobe) present. No wheezing or rales. Chest: Chest wall: No tenderness. Abdominal: General: Abdomen is flat. Palpations: Abdomen is soft. Musculoskeletal: General: Normal range of motion. Skin: General: Skin is warm. Neurological: General: No focal deficit present. Mental Status: She is alert and oriented to person, place, and time. ASSESSMENT/PLAN: 1. Acute cough - ICD9: 786.2, ICD10: R05.1 Increase fluids Start antibiotic Aug - COVID WITH FLUA+B, ROUTINE - XR CHEST 2V FRONTAL/LAT Tuesday Report to ED if worsening Cyndie Callejas APRN.MEGAN [facility]* Diagnosis Acute cough- Primary [facility] this encounter [facility] noteNo assessment information availableWEast [facility] Work Phone: Evaluation note* Diagnosis Sinobronchitis- Primary Unspecified sinusitis (chronic) Sore throat Acute pharyngitis documented in this encounter [facility] note* Diagnosis Onset Date Resolution Status Acute bronchitis [facility] Work Phone: Evaluation note* Diagnosis Onset Date Resolution Status Non-productive cough acute [facility] Work Phone: Reason for referral (narrative)No reason for referral information availableWEast [facility] Work Phone: Chief Complaint and Reason for Visit Chief Complaint EORDER Chief Complaint EORDER COUGH/POST NASAL DRIP EORDER Contusion of right wrist, initial encounter [facility] / RX HERE Reason for Visit Acute bronchitis Chief Complaint COUGH/POST NASAL DRI P EORDER Contusion of right wrist, initial encounter [facility] / RX HERE Reason for Visit Acute bronchitis Chief Complaint Reestablish Cough Reason for Visit Non-productive cough Chief Complaint Admit Date SCREENING June 25, 2024 1:26pm Reason for Visit Admit Date Personal history of colonic polyps Decem 2023 7:09am Family History Relationship Condition Age at Onset Recorded Date/T viji father Malignant neoplasm Unknown brother Hypertension Unknown Malignant neoplasm Unknown brother Malignant neoplasm Unknown Advance Directives Advance Directive Response Recorded Date/ Time Living Will No June 22, 019 1:54pm Power of Torch Solderer No June 22, 2019 1:54pm Advance Directive Response Recorded Date/ Time Living Will No June 22 019 2:54pm Power of Torch Solderer No June 22, 2019 2:54pm Advance Directive Response Recorded Date/ Time Living Will No June 22, 019 2:54pm Do you have a Healthcare Power of Torch Solderer? No June 22, 2019 2:54pm Living Will Yes July 06 024 11:22am Do you have a Healthcare Power of Torch Solderer? Yes July 06, 2024 11:22am Name of Medical Power of Torch Solderer SPOUSE July 06, 2024 11:22am Summary Purpose Additional Source Comments Source Comments (unrecognize d section and content) In the event this informatio n is protected by the Federal Confidentiality of Alcohol and Drug Abuse Patient Records regulations: The Federal rules restrict any use of the information to criminally investigate or prosecute any alcohol or drug abuse patient.[facility] the event this information is protected by the Federal Confidentiality of Alcohol and Drug Abuse Patient Records regulations: The Federal rules restrict any use of the information to criminally investigate or prosecute any alcohol or drug abuse patient.[facility] Reason for Visit (unrecogniz ed section and content) Reason Comments Sinus Problem Cough x 2 weeks Care Teams (unrecognized sec tion and content) Professor Of Social Work Relationship Specialty Start Date End Date Pcp, No PCP - General 01/23/22 08/10/22 Team Status: Active Member Role Status Dates Dr. Elias Epps MD Family Provider Active Dr. Elias Epps MD Primary Care Provider Active Team Status: Inactive Member Role Status Dates Dr. Elias Epps MD Primary Care Provide r, Attending Provider, Referring Provider Active Team Status: Inactive Member Role Status Dates Dr. Elias Epps MD Primary Care Provider, Referring P rovider Active Chi PARKER PA Attending Provider Active Team Status: Inactive Member Role Status Dates Dr. Elias Epps MD Primary Care Provider Active Adolfo PARKER PA-C Attending Provider, Referring Pr ovider Active Team Status: Active Member Role Status Dates Dr. Elias Epps MD Primary Care Provider Active COLLEEN DANIEL Attending Provider, Referring Provider Ac tive Team Status: Inactive Member Role Status Dates Dr. Elias Epps MD Primary Care Provider Active COLLEEN DANIEL Attending Provider, Referring Provider Ac tive Team Status: Inactive Member Role Status Dates Dr. Elias Epps MD Primary Care Provider, Referring P rovider Active Dr. Gerald Yanez MD Attending Provider Active Team Status: Inactive Member Role Status Dates Dr. Elias Epps MD Primary Care Provider Active Dr. Gerald Yanez MD Attending Provider, Referring Pr ovider Active Team Status: Active Member Role Status Dates Dr. Elias Epps MD Primary Care Provider Active Team Status: Inactive Member Role Status Dates Dr. Elias Epps MD Primary Care Provider Active Start: June 25, 2024 End: June 25, 2024 Dr. Elias Epps MD Attending Provider Active St art: June 25, 2024 End: June 25, 2024 Dr. Elias Epps MD Referring Provider Active St art: June 25, 2024 End: June 25, 2024 Team Status: Inactive Member Role Status Dates Dr. Elias Epps MD Primary Care Provider Active Start: July 09, 2024 End: July 09, 2024 Dr. Elias Epps MD Referring Provider Active St art: July 09, 2024 End: July 09, 2024 Dr. Karen Muse MD Attending Provider Active Start: July 09, 2024 End: July 09, 2024 Team Status: Active Member Role Status Dates Dr. Elias Epps MD Primary Care Provider Active Start: July 09, 2024 Dr. Elias Epps MD Referring Provider Active St art: July 09, 2024 Dr. Karen Muse MD Attending Provider Active Start: July 09, 2024 Dr. Karen Muse MD Other Provider Active S tart: July 09, 2024 Team Status: Inactive Member Role Status Dates Dr. Elias Epps MD Primary Care Provider Active Start: October 01, 2024 End: October 01, 2024 Dr. Elias Epps MD Attending Provider Active St art: October 01, 2024 End: October 01, 2024 Dr. Elias Epps MD Referring Provider Active St art: October 01, 2024 End: October 01, 2024 Team Status: Inactive Member Role Status Dates Dr. Elias Epps MD Primary Care Provider Active Start: December 10, 2024 End: December 10, 2024 Dr. Elias Epps MD Attending Provider Active St art: December 10, 2024 End: December 10, 2024 Dr. Elias Epps MD Referring Provider Active St art: December 10, 2024 End: December 10, 2024 Goals (unrecognized section and content) Goals may be documented in a n alternate sectionGoals may be documented in an alternate sectionGoals may be documented in an alternate sectionGoals may be documented in an alternate sectionGoals may be documented in an alternate section INFORMATION SOURCE (unrecogn ized section and content) DATE CREATED AUTHOR 08/19/2022 [facility] DATE CREATED AUTHOR AUTHOR'S ORGANIZ ATION 12/14/2024 [facility] FOR RECORDS PERTAINING TO PATIENTS WHO ARE OR HAVE BEEN ENROLLED IN A CHEMICAL DEPENDENCY/SUBSTANCEABUSE PROGRAM, SOME INFORMATION MAY BE OMITTED. This clinical summary was aggregated from multiple sources. Caution should be exercised in using it in the provision of clinical care. This summary normalizes information from multiple sources, and as a consequence, information in this document may materially change the coding, format and clinical context of patient data. In addition, data may be omitted in some cases. CLINICAL DECISIONS SHOULD BE BASED ON THE PRIMARY CLINICAL RECORDS. [facility], [facility]. provides no warranty or guarantee of the accuracy or completeness of information in this document.
== END | disposition home or self-care (01) ==
LOC: MFPLAB 10:38
PROVIDERS: PCP Family Medicine; Referring Provider Family Medicine; Visit Provider Family Medicine
DX: E03.9 Hypothyroidism, unspecified (principal); E66.811 Obesity, class 1; Z68.34 Body mass index [BMI] 34.0-34.9, adult
CPT/HCPCS: 36415; 80053; 83690; 84439; 84443; 84481

== ENCOUNTER → 2025-05-13 | Outpatient (CLI) | payer MEDICARE, SELFPAY ==
[2025-05-13 10:31] LABS: AST(SGOT) 27 U/L (<=31); Alanine Aminotransfer ALT/SGPT 20 U/L (<=34); Albumin, Serum 4.0 g/dL (3.4-4.8); Alkaline Phosphatase 100 U/L (35-104); Anion Gap 9 (5-15); BUN 13 mg/dL (4-19); BUN/Creat Ratio 13.8 RATIO (10-20); Calcium,Total 9.5 mg/dL (7.6-11.0); Carbon Dioxide 24.4 mmol/L (21.0-32.0); Chloride 106 mmol/L (98-108); Globulin 2.8 g/dL (2.2-4.2); Glucose 84 mg/dL (70-99); Potassium 4.2 mmol/L (3.3-5.1)
== END | disposition home or self-care (01) ==
LOC: MFPLAB 08:08
PROVIDERS: PCP Family Medicine; Visit Provider Family Medicine
DX: B35.1 Tinea unguium (principal)
CPT/HCPCS: 36415; 80053

== ENCOUNTER → 2025-05-21 | Outpatient (CLI) | payer MEDICARE, SELFPAY ==
[2025-05-21 13:09] LABS: Free T3 2.9 pg/mL (2.18-3.98)
== END | disposition home or self-care (01) ==
LOC: MTLAB 10:12
PROVIDERS: PCP Family Medicine; Referring Provider Family Medicine; Visit Provider Family Medicine
DX: E03.9 Hypothyroidism, unspecified (principal)
CPT/HCPCS: 36415; 84439; 84443; 84481

== ENCOUNTER → 2025-06-27 | Outpatient (CLI) | payer MEDICARE, SELFPAY ==
--- NOTE | 2025-06-27 13:57 | BD_ITS ---
PROCEDURE: DEXA BONE DENSITY STUDY 06/27/2025 REASON FOR EXAM: F, age 70 y/o . Postmenopausal. TECHNIQUE: Procedure Code: BDDBD Modality: DX Procedure: DEXA BONE DENSITY STUDY COMPARISON: June 13, 2019. FINDINGS: BMD and T-SCORES Lumbar spine: 0.963 g/cm2, T-score -0.8 Levels: L1 through L4 Change from prior: Loss of 6.1%. Left femoral neck: 0.674 g/cm2, T-score -1.6 Femoral neck comparison data not recommended for monitoring change. Left total hip: 0.817 g/cm2, T-score -1.0 Change from prior: Loss of 4.5%. Right femoral neck: 0.725 g/cm2, T-score -1.1 Femoral neck comparison data not recommended for monitoring change. Right total hip: 0.861 g/cm2, T-score -0.7 Change from prior: Improvement of 2.5%. . The World Health Organization has defined the following categories based on bone density: Normal bone density: T-score equal to or greater than -1.0 Osteopenia: T-score between -1.0 and -2.5 Osteoporosis: T-score equal to or less than -2.5 FRAX (or Comparable) Fracture Risk Assessment: 10 Year Probability of Fracture: Major Osteoporotic Fracture: 16% Hip Fracture: 2.4% (Note: FRAX is not to be reported in setting of normal range bone density, osteoporosis on DEXA, known history of osteoporosis, prior osteoporotic hip or vertebral fracture, or for any patient undergoing pharmacological treatment for bone loss.) The National Osteoporosis Foundation (NOF) recommends pharmacological treatment for patients with a FRAX 10-year risk of 3% or higher for a hip fracture, or 20% or higher for a major osteoporotic fracture, to prevent osteoporosis and reduce fracture risk. The patient does meet the pharmacological treatment recommendations for prevention of osteoporosis. BD/Dexa Bone Density Study IMPRESSION: OSTEOPENIA. Recommend follow-up as clinically warranted. Reading Location: [id number]
--- NOTE | 2025-06-27 13:57 | BI_ITS ---
EXAM: SCRN MAMM (CAD)W/IMELDA BILAT DATE: 06/27/2025 CLINICAL HISTORY: F, Age 70 y/o , SCREENING No family history. TECHNIQUE: Procedure Code: [id number] Modality: MG Procedure: SCRN MAMM (CAD)W/IMELDA BILAT COMPARISON: Prior exam(s) dated June 25, 2024.. FINDINGS: TISSUE DENSITY: The breasts are heterogeneously dense, which may obscure small masses. Bilateral Breast Mammographic Findings: No significant masses, calcifications or other abnormalities are identified. Stable benign-appearing bilateral axillary lymph nodes. No suspicious masses, areas of developing architectural distortion, or suspicious calcifications. There has been no significant interval change. BI/SCRN MAMM (CAD)W/IMELDA BILAT IMPRESSION: Stable bilateral screening mammogram. OVERALL FINAL ASSESSMENT BI-RADS 2: BENIGN RECOMMENDATION: Routine annual follow-up in 1 Year Additional Recommendation none A letter with findings and recommendations will be mailed to the patient. Reading Location: [id number]
--- OUTSIDE RECORDS SUMMARY | 2025-06-27 19:17 | XMS RPT_ITS | CCD ---
Author Organization [facility] Care Team Providers Care Community Organization Aide Name Role Phone Pcp, No Primary Care Provider Unavailabl e Unavailable Primary Care Provider Unavailabl e Dr. Elias Epps Primary Care Provider [phone] Elias Epps Referring Provider KEITH Farrar Attending Provider Dr. Elias Epps Primary Care Provider [phone] Elias Epps Referring Provider [phone] Dr. Gerald Yanez Attending Provider Mich SALTER, Dr. Griffin Primary Care Provider [phone] Mich SALTER, Dr. Griffin Attending Provider [phone] Elias Epps MD Referring Provider [phone] Almaz SALTER, Dr. Jones Attending Provider Almaz SALTER, Dr. Jones Other Provider Mich SALTER, Dr. Griffin Primary Care Provider Dr. Elias Epps MD Attending Provider [phone] Elias Epps MD Referring Provider [phone] Elias Epps MD Primary Care Provider Dr. Elias Epps MD Attending Provider [phone] Elias Epps MD Referring Provider [phone] Fredy Corbett MD Unavailable Elias Epps MD Unavailable Waylon SALTER, Saul Velazco Unavailable Elias Epps Attending Unavailable Elias Epps Referring Unavailable Epps, Elias Primary Care Unavailable Epps, Elias Attending Unavailable Epps, Elias Referring Unavailable Epps, Elias Primary Care Unavailable Robotham, Karen Consulting Unavailable Robotham, Karen Attending Unavailable Epps, Elias Referring Unavailable Epps, Elias Primary Care Unavailable Epps, Elias Attending Unavailable Epps, Elias Referring Unavailable Epps, Elias Primary Care Unavailable Robotham, Karen Attending Unavailable Epps, Elias Referring Unavailable Epps, Elias Primary Care Unavailable Epps, Elias Attending Unavailable Epps, Elias Referring Unavailable Epps, Elias Primary Care Unavailable Epps, Elias Attending Unavailable Epps, Elias Primary Care Unavailable Epps, Elias Attending Unavailable Epps, Elias Referring Unavailable Epps, Elias Primary Care Unavailable Allergies Allergy Classification Reported Allergen(s) Allergy Type Date of Onset Reaction(s) Facility (10 sources) Clarithromycin; Translations: [CLARITHROMYCIN] Drug [facility] Erythromycin; Translations: [ERYTHROMYCIN] Drug Allergy 09-14-19 14 GI [facility] (3 sources) Sulfonamides (Antibiotic); Translations: [SULFA (SULFONAMIDE ANTIBIOTICS)] Propensity to adverse reactions 08-31-19 07 [facility] Work Phone: (3 sources) Amoxicillin Drug Allergy 09-18-19 21 Unknown [facility] (7 sources) Cefuroxime Drug Allergy 09-18-19 21 Nausea & Diarrhea [facility] (7 sources) Clavulanate Drug Allergy 09-18-19 21 Unknown, Nausea [facility] (7 sources) Penicillins Propensity to adverse reactions 09-18-19 21 Nausea/Vom/Diarrhe a [facility] (7 sources) Sulfacetamide Drug Allergy 09-18-19 21 Unknown, [facility] (7 sources) Sulfonamides (Antibiotic) Allergy to substance 09-18-19 21 [facility] (3 sources) Grass pollen Allergy to substance (disorder) 09-04-19 20 [employer] (3 sources) House dust mite Allergy to substance (disorder) 09-04-19 20 [employer] (3 sources) Mold Extract Drug Allergy 09-04-19 20 [employer] (3 sources) Sulfacetamide Drug Allergy 09-04-19 20 [employer] (3 sources) Tetracycline Drug Allergy 08-10-19 22 Gastrointestinal [employer] (3 sources) TREE POLLEN Allergy to substance (disorder) 09-04-19 [facility] (3 sources) PLANT POLLENS Allergy to substance (disorder) 09-04-19 [facility] (1 source) Cefuroxime Drug Allergy 07-09-20 [facility] (1 source) Clarithromycin Drug Allergy 07-09-20 [facility] (1 source) Clavulanate Drug Allergy 07-09-20 [facility] (1 source) Erythromycin Drug Allergy 07-09-20 [facility] (1 source) Penicillins Drug allergy (disorder) 07-09-20 [facility] (1 source) Sulfacetamide Drug Allergy 07-09-20 [facility] (1 source) Sulfonamides (Antibiotic) Drug allergy (disorder) 07-09-20 [facility] Medications Current Medications Medication Drug Class(es) Dates Sig (Normalized) Sig (Original) [id number] 200 actuat albuterol 0.09 mg/actuat metered dose inhaler (10 sources) beta2-Adrenergic Agonist Start: 08-31-2023 End: 06-08-2024 Albuterol Sulfate 90 mcg/actuation HFA aerosol inhaler Active 2 NMA INHALATION EVERY 6 HOURS as needed for shortness of breath or wheezing 8.5 11 June 08, 2024 2:38pm Start: 08-31-2023 take 1 puff(s) by in halation every six hours Albuterol Sulfate Active 2 PUFF INHALATION EVERY 6 HOURS August 31, 2023 1:00am albuterol sulfat e HFA 90 mcg/actuation aerosol inhaler as directed active Laurie Aragon LPN [facility] amoxicillin 875 mg / clavulanate 125 mg [...] 5 days. benzonatate 200 mg oral capsule (6 sources) Non-narcotic Antitussive Start: 09-02-2023 take 1 capsule by mouth three times daily as needed for cough Benzonatate 200 mg capsule Active 200 mg PO THREE TIMES A DAY as needed for cough 90 0 September 02, 2023 1:00am Start: 08-15-2016 take 1 capsule by [facility] three times daily as needed benzonatate (TESSALON PERLE) 100 mg capsule Indications: Sinobronchitis Take 1-2 capsules by mouth three times daily as needed. 30 capsule 0 08/15/2016 Active Comment on above: Take 1-2 capsules by mouth three times daily as needed. bisoprolol fumarate 5 mg oral tablet (12 sources) beta-Adrenergic Mitch Start: 8 take 1 tablet by mouth at bedtime Bisoprolol Fumarate 5 mg tablet Active 5 mg PO AT BEDTIME November 13, 2019 12:00am Comment on above: bisoprolol fumarate 5 mg tablet Active 5 MG daily 30 30 November 08, 2017 1:38pm brompheniramine maleate [...] times daily. cholecalciferol 0.025 mg oral tablet (10 sources) Vitamin D Start: 11-13-19 20 take 1 tablet by mouth once daily Cholecalciferol (Vitamin D3) 25 mcg (1,000 unit) tablet Active 1000 U PO DAILY November 13, 2019 12:00am Start: 11-13-2019 take 2000 [IU] by [facility] once daily Cholecalciferol (Vitamin D3) Active 2000 UNIT PO DAILY November 13, 2019 12:00am take 1 tablet by [facility] once daily Vitamin D3 125 mcg (5,000 unit) tablet Take 1 tablet by mouth once a day active Yamila JJ [facility] fluticasone propionate 0.05 mg/actuat metered dose nasal spray (16 sources) Corticosteroid Start: 10-10-2017 End: 10-19-2018 Fluticasone [...] in each nostril once daily. Fluticasone Propion-Salmeterol (6 sources) Corticosteroid, beta2-Adrenergic Agonist Start: 10-12-2023 Fluticasone Propion-Salmeterol (Wixela Inhub) 500-50 mcg/dose blister with device Active 1 NMA INHALATION TWICE A DAY 60 3 October 12, 2023 12:00am Start: 10-12-2023 Fluticasone Pr opion-Salmeterol (Wixela Inhub) 500-50 mcg/dose blister with device Active 1 NMA INHALATION TWICE A DAY 60 October 12, 2023 12:00am fluticasone 500 mcg-salmeterol 50 mcg/dose blistr powdr for inhalation as directed active Laurie Aragon LPN [facility] ibuprofen 200 mg oral tablet (3 sources) Nonsteroidal Anti-inflammatory Drug Start: 05-04-2024 take 1 tablet by mouth every six hours as needed for pain Ibuprofen 200 mg tablet Active 200 mg PO EVERY 6 HOURS as needed for pain May 04, 2024 12:00am levothyroxine sodium 0.1 mg oral tablet (20 sources) l-Thyroxine Start: 05-04-2024 take 1 tablet by mouth once daily Levothyroxine 100 mcg tablet Active 100 ug PO daily 90 90 0 May 04, 2024 10:31am Start: 08-31-2023 End: 05-04-2024 Levothyroxine 100 mcg tablet Discontinued 112 ug PO daily 101 90 0 August 31, 2023 8:42am May 04, 2024 10:34am Start: 08-31-2023 take 112 ug by mouth once daily Levothyroxine Active 112 MCG PO daily 101 90 August 31, 2023 8:42am Start: 11-08-2017 End: 08-31-2023 take 1 tablet by mouth once daily Levothyroxine 100 mcg tablet Discontinued 100 ug PO daily 90 90 0 November 08, 2017 12:00am August 31, 2023 8:45am Start: 10-05-2013 End: 11-08-2017 take 1 tablet by mouth once daily Levothyroxine 112 MCG tablet Discontinued 112 ug PO DAILY May 27, 2017 1:00am November 08, 2017 1:36pm levothyroxine 75 mcg tablet once a day active Laurie Aragon LPN [facility] Comment on above: Take 1 tablet by montrell th once daily. liothyronine sodium 0.005 mg oral tablet (12 sources) l-Triiodothyronine Start: take 1 tablet by mouth once daily Liothyronine (Cytomel) 5 mcg tablet Active 5 ug PO DAILY May 26, 2020 1:00am meloxicam 15 mg oral tablet (3 sources) Nonsteroidal Anti-inflammatory Drug meloxicam 15 mg tablet as directed active Laurie Aragon LPN [facility] SEMAGLUTIDE 2.7MG/LEVOCARNITINE 100MG PER ML INJ (3 sources) inject 0.27 mg by subcutaneous injection two times weekly SEMAGLUTIDE 2.7MG/LEVOCARNITINE 100MG PER ML INJ INJECT 0.27MG (10 UNITS ON INSULIN SYRINGE) SUBCUTANEOUSLY TWICE WEEKLY (3-4 DAYS APART) active Helena Thornton MA [facility] terbinafine 250 mg oral tablet (3 sources) Allylamine Antifungal terbinafine HCl 250 mg tablet active Helena Thornton MA [facility] traMADol hydrochloride 50 mg oral tablet (1 source) Opioid Agonist tramadol 50 mg tablet active Sayda Rae CMA [facility] Completed/Discontinued Medications Medication Drug Class(es) Dates Sig (Normalized) Sig (Original) acetaminophen 300 mg / codeine phosphate 30 mg oral tablet (7 sources) Opioid Agonist Start: 10-24-2018 End: 10-31-2018 Acetaminophen-Codeine 1 TABLET tablet Discontinued 1 {tbl} PO EVERY 4 HOURS NEEDED as needed for Pain 30 7 0 October 24, 2018 12:00am October 30, 2018 12:00am October 31, 2018 12:11am Other acute postprocedural pain Start: 10-24-2018 End: 10-31-2018 take 1 tablet by mouth every four hours as needed Acetaminophen-Codeine Discontinued 1 TABLET PO EVERY 4 HOURS NEEDED 30 7 October 24, 2018 12:00am October 31, 2018 12:11am amitriptyline hydrochloride 75 mg oral tablet (19 sources) Tricyclic Antidepressant Start: 05-26-2020 take 3 tablets by mouth at bedtime Amitriptyline 25 mg tablet Active 75 mg PO AT BEDTIME 90 30 0 May 26, 2020 2:58pm Start: 05-26-2020 take 75 mg by mouth at bedtime Amitriptyline Active 75 MG PO AT BEDTIME 90 30 May 26, 2020 2:58pm Start: 09-04-2019 take 1 tablet by montrell once daily amitriptyline 75 mg tablet 1 tablet by mouth once a day active Idalmis [facility] Start: 11-08-2017 End: 05-26-2020 take 1 tablet by mouth at bedtime Amitriptyline 25 mg tablet Discontinued 25 mg PO AT BEDTIME 30 30 0 November 08, 2017 12:00am May 26, 2020 2:58pm aspirin 81 mg delayed release oral tablet (7 sources) Platelet Aggregation Inhibitor, Nonsteroidal Anti-inflammatory Drug Start: 05-30-2017 End: 11-08-2017 take 1 tablet by mouth once daily Aspirin 81 MG tablet Discontinued 81 mg PO DAILY@0800 May 30, 2017 1:00am November 08, 2017 1:36pm aspirin 325 mg / butalbital 50 mg / caffeine 40 mg oral capsule (9 sources) Platelet Aggregation Inhibitor, Barbiturate, Nonsteroidal Anti-inflammatory Drug, Central Nervous System Stimulant, Methylxanthine Start: 05-27-2017 End: 11-08-2017 Butalbital-Aspirin -Caffeine 1 EACH capsule Discontinued 1 NMA PO DAILY as needed for Pain May 27, 2017 1:00am November 08, 2017 1:40pm Start: 05-27-2017 End: 11-08-2017 Mgbmlkuqdn-Wkcksng-Pcmxxabg Discontinued 1 EACH PO DAILY May 27, 2017 1:00am November 08, 2017 1:40pm Start: 08-31-2006 FIORINAL 325 M G-40 MG-50 MG CAP use as directed 2 at night for migraines 0 08/31/2006 Active Comment on above: use as directed 2 at night for migraines azithromycin 250 mg oral tablet (6 sources) Macrolide Antimicrobial Start: 08-28-19 23 End: 08-31-19 24 take 2-5 tablets by mouth once daily Azithromycin 250 mg tablet Discontinued 0 PO .COMPLEX 6 0 August 28, 2022 1:00am August 31, 2023 8:41am take 500 mg today (day 1), then 250 mg for 4 days (days 2-5) PO BUDESONIDE/FORMOTEROL FUMARATE (SYMBICORT INHALATION) (2 sources) BUDESONIDE/FORMO TERO L FUMARATE (SYMBICORT INHALATION) Inhale as instructed. 0 Active Comment on above: Inhale as instructed . cetirizine hydrochloride 10 mg oral tablet (6 sources) Histamine-1 Receptor Antagonist Start: 10-12-19 24 End: 07-06-20 24 take 1 tablet by mouth once daily as needed Cetirizine 10 mg tablet Discontinued 10 mg PO DAILY as needed for allergy symptoms 90 3 October 12, 2023 9:04am July 06, 2024 11:20am ciprofloxacin 250 mg oral tablet (14 sources) Quinolone Antimicrobial Start: 03-31-20 End: 04-05-20 18 take 1 tablet by mouth twice daily Ciprofloxacin Hcl 250 mg tablet Discontinued 250 mg PO TWICE A DAY 10 0 March 31, 2018 12:00am April 05, 2018 2:19pm Start: 10-10-2017 End: 11-08-2017 take 1 tablet by mouth twice daily Ciprofloxacin Hcl (Cipro) 500 mg tablet Discontinued 500 mg PO TWICE A DAY October 10, 2017 12:00am November 08, 2017 1:40pm clopidogrel 75 mg oral tablet (7 sources) P2Y12 Platelet Inhibitor Start: 05-30-2017 End: [...] drowsiness. doxycycline monohydrate 100 mg oral capsule (4 sources) Tetracycline-cla ss Drug Start: 11-28-2023 End: [...] Comment on above: [facility]. ergocalciferol 1.25 mg oral capsule (2 sources) Provitamin D2 Compound Start: 10-05-19 take 1 capsule by mouth every week ergocalciferol, vitamin D2, 50,000 unit capsule Take 1 capsule by mouth once each week. 12 capsule 0 10/04/2013 Active Comment on above: Take 1 capsule by mo [facility] once each week. estradiol 0.1 mg/ml vaginal cream (14 sources) Estrogen Start: 07-18-19 End: 09-18-19 Estradiol (Estrace) 0.01 % (0.1 mg/gram) cream Discontinued 1 g VAGINAL DAILY 42.5 2 July 18, 2020 1:00am July 18, 2020 11:57am for 14 days then 2x per week estrogens, conjugated (long term) 0.625 mg/ml vaginal cream (7 sources) Estrogen Start: 09-18-19 End: 08-31-19 Conjugated Estrogens (Premarin) 0.625 mg/gram cream Discontinued 0.625 mg VAGINAL TWICE A WEEK 30 4 September 17, 2020 1:00am August 31, 2023 8:41am nightly for 2 weeks then 2x per week fexofenadine (2 sources) Histamine-1 Receptor Antagonist FEXOFENADINE HCL (TREVON ORAL) Take 1 tablet by mouth as needed. 0 Active Comment on above: Take 1 tablet by montrell as needed. 30 actuat fluticasone furoate 0.1 mg/actuat / vilanterol 0.025 mg/actuat dry powder inhaler (14 sources) Corticosteroid, beta2-Adrenergic Agonist Start: 01-10-20 End: 04-05-20 18 Fluticasone Furoate-Vilanterol (Breo Ellipta) [...] with device Discontinued 1 NMA INHALATION Q24H 05 01July 12, 2017 1:00am November 08, 2017 1:40pm Cough Moderate persistent asthma, uncomplicated after inhalation, rinse mouth with water and [...] and spit out; do not swallow Mometasone-Formoterol (7 sources) Corticosteroid, beta2-Adrenergic Agonist Start: 05-27-2017 End: [...] mg tablet Discontinued 25 mg PO daily 90 3 November 10, 2017 1:46pm October 19, 2018 [...] once daily. loratadine 10 mg oral capsule (14 sources) Start: 8 End: 8 take 1 capsule by mouth once daily Loratadine 10 mg capsule Discontinued 10 mg PO daily 07 01December 06, 2017 1:59pm January 09, 2018 12:47pm losartan potassium 100 mg oral tablet (2 sources) Angiotensin 2 Receptor Mitch take 1 tablet by mouth once daily losartan (COZAAR) 100 mg tablet Take 100 mg by mouth once daily. 0 Active Comment on above: Take 100 mg by mouth once daily. magnesium oxide 400 mg oral tablet (14 sources) Start: 8 End: 4 take 1 [...] 2017 1:41pm methylPREDNISolone 4 mg oral tablet (3 sources) Corticosteroid Start: 11-28-2023 End: 01-17-2024 take 1 tablet by mouth once Methylprednisolone (Medrol (Danny)) 4 mg tablets,dose pack Discontinued 0 PO per package directions November 28, 2023 12:00am January 17, 2024 1:52pm PO PER PKG DIR montelukast 10 mg oral tablet (10 sources) Leukotriene Receptor Antagonist Start: 01-17-2024 End: [...] / nitrofurantoin, monohydrate 75 mg oral capsule (14 sources) Nitrofuran Antibacterial Start: 07-18-2020 End: 07-25-2020 take 1 capsule by mouth every twelve hours at mealtime Nitrofurantoin Monohyd/M-Cryst (Macrobid) 100 mg capsule Discontinued 100 mg PO Q12H 14 7 0 July 18, 2020 12:05pm July 24, 2020 1:00am July 25, 2020 1:03am must administer with a meal/food predniSONE 10 mg oral tablet (7 sources) Start: 08-31-2023 End: 10-12-2023 Prednisone 10 mg tablet Discontinued 10 mg PO daily 30 0 September 23, 2023 12:00am October 12, 2023 8:43am take 4 tabs for three days, then 3 tabs for three days, then 2 tabs for three days, then 1 tab for 3 days promethazine hydrochloride 12.5 mg oral tablet (4 sources) Phenothiazine Start: 08-31-2023 End: 01-17-2024 take 1 tablet by mouth every six hours as needed Promethazine 12.5 mg tablet Discontinued 12.5 mg PO EVERY 6 HOURS as needed August 31, 2023 1:00am January 17, 2024 1:53pm 24 hr venlafaxine 75 mg extended release oral capsule (9 sources) Serotonin and Norepinephrine Reuptake Inhibitor Start: [...] daily. zolpidem tartrate 10 mg oral tablet (9 sources) gamma-Aminobutyri c Acid-ergic Agonist Start: 05-27-2017 [...] Date Documented Da te Episodic/Chronic Acute bronchitis (8 sources) Acute bronchitis; Translations: [Acute bronchitis, unspecified] 08-28-2022 Episodic Asthma (6 sources) Asthmatic bronchitis; Translations: [Unspecified asthma with (acute) exacerbation] 07-06-2024 Chronic Comment on above: INHALER Essential hypertension (7 sources) Essential hypertension; Translations: [Essential (primary) hypertension] 11-10-2019 Chronic Comment on above: CONTROLLED WITH MED Mycoses (1 source) Tinea unguium; Translations: [Tinea unguium] Onset: 05-22-2025 Episodic Nutritional deficiencies (2 sources) Vitamin D deficiency; Translations: [Vitamin D deficiency, unspecified] Onset: 09-13-2013 09-13-2013 Chronic Osteoarthritis (4 sources) Arthritis of right foot; Translations: [Primary osteoarthritis, right ankle and foot] Onset: 04-01-2025 04-01-2025 Chronic Other and unspecified benign neoplasm (4 sources) History of polyp of colon; Translations: [History of colonic polyps] 07-09-2024 Episodic Other connective tissue disease (4 sources) Tibialis anterior tendinitis; Translations: [Anterior tibial syndrome, right leg] Onset: 04-01-2025 04-01-2025 Episodic Other lower respiratory disease (1 source) Cough; Translations: [Acute cough] Episodic Other lower respiratory disease (7 sources) Dyspnea on exertion; Translations: [Other forms of dyspnea] 11-10-2019 Episodic Other lower respiratory disease (5 sources) Dry cough; Translations: [Non-productive cough] 08-31-2023 Episodic Other nutritional; endocrine; and metabolic disorders (2 sources) Body mass index 30+ - obesity; Translations: [Obesity, unspecified] Onset: 09-13-2013 09-13-2013 Chronic Other upper respiratory infections (1 source) Chronic sinusitis; Translations: [Chronic sinusitis, unspecified] Chronic Other upper respiratory infections (1 source) Sore throat symptom; Translations: [Acute pharyngitis, unspecified] Episodic Thyroid disorders (4 sources) Hypothyroidism; Translations: [Hypothyroidism, unspecified] Onset: 09-13-2013 09-13-2013 Chronic Unclassified (1 source) Personal history of colon polyps, unspecified; Translations: [Personal history of colon polyps, unspecified] Onset: 07-30-2024 Past or Other Problems Problem Classification Problem Date Documented Da te Episodic/Chronic Other acquired deformities (3 sources) Lumbar spondylolisthesis; Translations: [Spondylolisthesis, lumbar region] Onset: 06-20-2024 04-01-2025 Episodic Other connective tissue disease (3 sources) Plantar fasciitis; Translations: [Plantar fascial fibromatosis] Onset: 11-09-2022 11-09-2022 Episodic Other connective tissue disease (3 sources) Trochanteric bursitis, left hip; Translations: [Enthesopathy of hip region] Onset: 08-11-2021 04-01-2025 Episodic Other screening for suspected conditions (not mental disorders or infectious disease) (12 sources) Patient encounter status; Translations: [Encounter for screening for malignant neoplasm of intestinal tract, unspecified] Onset: 07-27-2024 11-10-2019 Episodic Spondylosis; intervertebral disc disorders; other back problems (4 sources) Spinal stenosis of lumbar region; Translations: [Spinal stenosis, lumbar region with neurogenic claudication] Onset: 06-20-2024 04-01-2025 Episodic Sprains and strains (9 sources) Strain of muscle, fascia and tendon of left hip, subsequent encounter; Translations: [Other specified aftercare] Onset: 12-14-2019 04-01-2025 Episodic Results Test Name Value Interpretation Reference Range Facility Relevant diagnostic tests/la boratory data Narrativeon 05-22-2025 Fall risk assessment no MELISSA [facility]) Work Phone: MEDS REVIEW Documentation of current medications (procedure) [employer] Work Phone: MEDS REVIEWD Medications reviewed with changes [employer] Work Phone: MRI HX of the lumbar spine on 04/29/2025 at [facility] Work Phone: XRAY HX of the lumbar spine on 04/03/2025 at [facility]. Work Phone: Free T3on 05-21-2025 Free T3 [Mass/Vol] 2.9 pg/mL Normal 2.18-3.98 [facility] Comment on above: Performed By: #### L [id number], [id number], [id number] ####[facility] [address] [place], [address] T4 Free Directon 05-21-2025 T4 FREE DIRECT 1.10 ng/dL Normal 0.76-1.46 [facility] Comment on above: Performed By: #### L 506.0400, [id number], [id number] ####[facility] [address] [place], [address] Thyroid Stim Hormone (TSH)on 05-21-2025 TSH 11.000 uIU/mL High 0.300-4.200 [facility] Comment on above: Performed By: #### L 506.0400, [id number], [id number] ####[facility] [address] [place], [address] Comprehensive Metabolic Prof ilon 05-13-2025 Albumin [Mass/Vol] 4.0 g/dL Normal 3.4-4.8 [facility] Comment on above: Order Comment: Order Date: 02/25/25Order Info: 0786-1 - CMP Performed By: #### L [id number] ####[facility] [address] [place], [address] Albumin/Globulin [Mass ratio] 1.4 {ratio} Normal 0.9-2.4 [facility] Comment on above: Order Comment: Order Date: 02/25/25Order Info: 0786-1 - CMP Performed By: #### L [id number] ####[facility] [address] [place], [address] ALK PHOS 100 U/L Normal 35-104 [facility] Comment on above: Order Comment: Order Date: 02/25/25Order Info: 0786-1 - CMP Performed By: #### L [id number] ####[facility] [address] [place], [address] ALT [Catalytic activity/Vol] 20 U/L Normal <=34 [facility] Comment on above: Order Comment: Order Date: 02/25/25Order Info: 0786-1 - CMP Performed By: #### L [id number] ####[facility] [address] [place], [address] AST [Catalytic activity/Vol] 27 U/L Normal <=31 [facility] Comment on above: Order Comment: Order Date: 02/25/25Order Info: 0786-1 - CMP Performed By: #### L [id number] ####[facility] [address] [place], [address] Bilirubin [Mass/Vol] 0.31 mg/dL Normal 0.00-1.30 [facility] Comment on above: Order Comment: Order Date: 02/25/25Order Info: 0786-1 - CMP Performed By: #### L [id number] ####[facility] [address] [place], [address] BUN/CRE 13.8 RATIO Normal 10-20 [facility] Comment on above: Order Comment: Order Date: 02/25/25Order Info: 0786-1 - CMP Performed By: #### L [id number] ####[facility] [address] [place], [address] Calcium [Mass/Vol] 9.5 mg/dL Normal 7.6-11.0 [facility] Comment on above: Order Comment: Order Date: 02/25/25Order Info: 0786-1 - CMP Performed By: #### L [id number] ####[facility] [address] [place], [address] Chloride [Moles/Vol] 106 mmol/L Normal 98-108 [facility] Comment on above: Order Comment: Order Date: 02/25/25Order Info: 0786-1 - CMP Performed By: #### L 500.4050 ####[facility] [address] [place], [address] CO2 [Moles/Vol] 24.4 mmol/L Normal 21.0-32.0 [facility] Comment on above: Order Comment: Order Date: 02/25/25Order Info: 0786-1 - CMP Performed By: #### L 500.4050 ####[facility] [address] [place], [address] Creatinine [Mass/Vol] 0.94 mg/dL Normal 0.70-1.20 [facility] Comment on above: Order Comment: Order Date: 02/25/25Order Info: 0786-1 - CMP Performed By: #### L 500.4050 ####[facility] [address] [place], [address] GAP 9 Normal 5-15 [facility] Comment on above: Order Comment: Order Date: 02/25/25Order Info: 0786-1 - CMP Performed By: #### L 500.4050 ####[facility] [address] [place], [address] GFR/1.73 sq M.predicted among non-blacks MDRD (S/P/Bld) [Vol rate/Area] 65 mL/min/{1.73_m2} Normal >60 [facility] Comment on above: Order Comment: Order Date: 02/25/25Order Info: 0786-1 - CMP Result Comment: mL/m in/1.73m2 CKD-EPI Creatinine Equation (2020) Performed By: #### L 500.4050 ####[facility] [address] [place], [address] Globulin (S) [Mass/Vol] 2.8 g/dL Normal 2.2-4.[address] [facility] Comment on above: Order Comment: Order Date: 02/25/25Order Info: 0786-1 - CMP Performed By: #### L 500.4050 ####[facility] [address] [place], [address] Glucose [Mass/Vol] 84 mg/dL Normal 70-99 [facility] Comment on above: Order Comment: Order Date: 02/25/25Order Info: 0786-1 - CMP Performed By: #### L 500.4050 ####[facility] [address] [place], [address] Potassium [Moles/Vol] 4.2 mmol/L Normal 3.3-5.1 [facility] Comment on above: Order Comment: Order Date: 02/25/25Order Info: 0786-1 - CMP Performed By: #### L 500.4050 ####[facility] [address] [place], [address] Sodium [Moles/Vol] 140 mmol/L Normal 133-145 [facility] Comment on above: Order Comment: Order Date: 02/25/25Order Info: 0786-1 - CMP Performed By: #### L 500.4050 ####[facility] [address] [place], [address] T PROT 6.9 g/dL Normal 5.9-8.4 [facility] Comment on above: Order Comment: Order Date: 02/25/25Order Info: 0786-1 - CMP Performed By: #### L 500.4050 ####[facility] [address] [place], [address] Urea nitrogen [Mass/Vol] 13 mg/dL Normal 4-19 [facility] Comment on above: Order Comment: Order Date: 02/25/25Order Info: 0786-1 - [facility] Performed By: #### L 500.4050 ####[facility] [address] [place], [address] Relevant diagnostic tests/la boratory data Narrativeon 04-03-2025 Fall risk assessment no MELISSA [employer]) Work Phone: MEDS REVIEW Documentation of current medications (procedure) [employer] Work Phone: MEDS REVIEWD Medications reviewed with [employer] Work Phone: Relevant diagnostic tests/la boratory data Narrativeon 04-01-2025 Fall risk assessment no [employer] Work Phone: MEDS REVIEW Documentation of current medications (procedure) [employer] Work Phone: MEDS REVIEWD Medications reviewed with [employer] Work Phone: Anion gap in Serum or Plasma Ordered By: Elias Epps on 02-21-2025 Anion gap [Moles/Vol] 10 mmol/L 5-15 [facility] BUN/creatinine ratioOrdered By: Elias Epps on 02-21-2025 Urea nitrogen/Creatinine [Mass ratio] 13.3 mg/mg 10-20 [facility] Bilirubin, totalOrdered By: Elias Epps on 02-21-2025 Bilirubin [Mass/Vol] 0.46 mg/dL 0.00-1.30 [facility] Carbon dioxide, total [Moles /volume] in Central venous bloodOrdered By: Elias Epps on 02-21-2025 CO2 [Moles/Vol] 25.5 mmol/L 21.0-32.0 [facility] Chloride assayOrdered By: Marin Epps on 02-21-2025 Chloride [Moles/Vol] 105 mmol/L 98-108 [facility] Comprehensive Metabolic Prof ilon 02-21-2025 Albumin [Mass/Vol] 4.2 g/dL Normal 3.4-4.8 [facility] Comment on above: Order Comment: Order Date: 12/13/24 Order Info: 3051-0 - T3F Order Info: 3016-3 - TSH Order Info: 3024-7 - T4F Performed By: #### L 501.2450, L500.4050 #### [facility] [address] [place], [address] Albumin/Globulin [Mass ratio] 1.4 {ratio} Normal 0.9-2.4 [facility] Comment on above: Order Comment: Order Date: 12/13/24 Order Info: 3051-0 - T3F Order Info: 3016-3 - TSH Order Info: 3024-7 - T4F Performed By: #### L 501.2450, L500.4050 #### [facility] [address] [place], [address] ALK PHOS 103 U/L Normal 35-104 [facility] Comment on above: Order Comment: Order Date: 12/13/24 Order Info: 3051-0 - T3F Order Info: 3016-3 - TSH Order Info: 3024-7 - T4F Performed By: #### L 501.2450, L500.4050 #### [facility] [address] [place], [address] ALT [Catalytic activity/Vol] 18 U/L Normal <=34 [facility] Comment on above: Order Comment: Order Date: 12/13/24 Order Info: 3051-0 - T3F Order Info: 3016-3 - TSH Order Info: 3024-7 - T4F Performed By: #### L 501.2450, L500.4050 #### [facility] [address] [place], [address] AST [Catalytic activity/Vol] 25 U/L Normal <=31 [facility] Comment on above: Order Comment: Order Date: 12/13/24 Order Info: 3051-0 - T3F Order Info: 3016-3 - TSH Order Info: 3024-7 - T4F Performed By: #### L 501.2450, L500.4050 #### [facility] [address] [place], [address] Bilirubin [Mass/Vol] 0.46 mg/dL Normal 0.00-1.30 [facility] Comment on above: Order Comment: Order Date: 12/13/24 Order Info: 3051-0 - T3F Order Info: 3016-3 - TSH Order Info: 3024-7 - T4F Performed By: #### L 501.2450, L500.4050 #### [facility] [address] [place], [address] BUN/CRE 13.3 RATIO Normal 10-20 [facility] Comment on above: Order Comment: Order Date: 12/13/24 Order Info: 3051-0 - T3F Order Info: 3016-3 - TSH Order Info: 3024-7 - T4F Performed By: #### L 501.2450, L500.4050 #### [facility] [address] [place], [address] Calcium [Mass/Vol] 10.1 mg/dL Normal 7.6-11.0 [facility] Comment on above: Order Comment: Order Date: 12/13/24 Order Info: 3051-0 - T3F Order Info: 3016-3 - TSH Order Info: 3024-7 - T4F Performed By: #### L 501.2450, L500.4050 #### [facility] [address] [place], [address] Chloride [Moles/Vol] 105 mmol/L Normal 98-108 [facility] Comment on above: Order Comment: Order Date: 12/13/24 Order Info: 3051-0 - T3F Order Info: 3016-3 - TSH Order Info: 3024-7 - T4F Performed By: #### L 501.2450, L500.4050 #### [facility] [address] [place], [address] CO2 [Moles/Vol] 25.5 mmol/L Normal 21.0-32.0 [facility] Comment on above: Order Comment: Order Date: 12/13/24 Order Info: 3051-0 - T3F Order Info: 3016-3 - TSH Order Info: 3024-7 - T4F Performed By: #### L 501.2450, L500.4050 #### [facility] [address] [place], [address] Creatinine [Mass/Vol] 0.96 mg/dL Normal 0.70-1.20 [facility] Comment on above: Order Comment: Order Date: 12/13/24 Order Info: 3051-0 - T3F Order Info: 3 - TSH Order Info: 302-7 - T4F Performed By: #### L 501.2450, L500.4050 #### [facility] [address] [place], [address] GAP 10 Normal 5-15 [facility] Comment on above: Order Comment: Order Date: 12/13/24 Order Info: 3051-0 - T3F Order Info: 3 - TSH Order Info: 302-7 - T4F Performed By: #### L 501.2450, L500.4050 #### [facility] [address] [place], [address] GFR/1.73 sq M.predicted among non-blacks MDRD (S/P/Bld) [Vol rate/Area] 63 mL/min/{1.73_m2} Normal >60 [facility] Comment on above: Order Comment: Order Date: 12/13/24 Order Info: 3051-0 - T3F Order Info: 3016-3 - TSH Order Info: 3024-7 - T4F Result Comment: mL/m in/1.73m2 CKD-EPI Creatinine Equation (2020) Performed By: #### L 501.2450, L500.4050 #### [facility] [address] [place], [address] Globulin (S) [Mass/Vol] 3.1 g/dL Normal 2.2-4.[address] [facility] Comment on above: Order Comment: Order Date: 12/13/24 Order Info: 3051-0 - T3F Order Info: 3016-3 - TSH Order Info: 3024-7 - T4F Performed By: #### L 501.2450, L500.4050 #### [facility] [address] [place], [address] Glucose [Mass/Vol] 84 mg/dL Normal 70-99 [facility] Comment on above: Order Comment: Order Date: 12/13/24 Order Info: 3051-0 - T3F Order Info: 3016-3 - TSH Order Info: 3024-7 - T4F Performed By: #### L 501.2450, L500.4050 #### [facility] [address] [place], [address] Potassium [Moles/Vol] 4.3 mmol/L Normal 3.3-5.1 [facility] Comment on above: Order Comment: Order Date: 12/13/24 Order Info: 3051-0 - T3F Order Info: 3016-3 - TSH Order Info: 3024-7 - T4F Performed By: #### L 501.2450, L500.4050 #### [facility] [address] [place], [address] Sodium [Moles/Vol] 140 mmol/L Normal 133-145 [facility] Comment on above: Order Comment: Order Date: 12/13/24 Order Info: 3051-0 - T3F Order Info: 3016-3 - TSH Order Info: 3024-7 - T4F Performed By: #### L 501.2450, L500.4050 #### [facility] [address] [place], [address] T PROT 7.2 g/dL Normal 5.9-8.4 [facility] Comment on above: Order Comment: Order Date: 12/13/24 Order Info: 3051-0 - T3F Order Info: 3016-3 - TSH Order Info: 3024-7 - T4F Performed By: #### L 501.2450, L500.4050 #### [facility] [address] [place], [address] Urea nitrogen [Mass/Vol] 13 mg/dL Normal 4-19 [facility] Comment on above: Order Comment: Order Date: 12/13/24 Order Info: 3051-0 - T3F Order Info: 3016-3 - TSH Order Info: 3024-7 - T4F Performed By: #### L 501.2450, L500.4050 #### [facility] [address] [place], [address] Free T3on 02-21-2025 Free T3 [Mass/Vol] 3.1 pg/mL Normal 2.18-3.98 [facility] Comment on above: Order Comment: Order Date: 12/13/24Order Info: 3051-0 - C9KQwqga Info: 3016-3 - TSHOrder Info: 3024-7 - T4F Performed By: #### L 501.99075, L506.0400, L501.9520 ####[facility] [address] [place], [address] Free W1Ybguqrl By: Elias shahid on 02-21-2025 Free T3 [Mass/Vol] 3.1 pg/mL 2.18-3.98 [facility] Glomerular filtration rate ( GFR) estimation/1.73 sq m using serum, plasma, or whole bOrdered By: Elias Epps on 02-21-2025 GFR/1.73 sq M.predicted among non-blacks MDRD (S/P/Bld) [Vol rate/Area] 63 mL/min/{1.73_m2} >60 [facility] Comment on above: mL/min/1.73m2 CKD-EP I Creatinine Equation (2020) Laboratory - Chemistry and C hemistry - challengeOrdered By: Elias Epps on 02-21-2025 AST [Catalytic activity/Vol] 25 U/L <32 [facility] Lipaseon 02-21-2025 Lipase [Catalytic activity/Vol] 18 U/L Normal 13-75 [facility] Comment on above: Order Comment: Order Date: 12/13/24 Order Info: 3051-0 - T3F Order Info: 3016-3 - TSH Order Info: 3024-7 - T4F Result Comment: Og keith note: LIPASE revised reference range effective 22. New Lipase methodology. Expected to produce lower values than the previous assay method. NEW Reference Range: 13 - 75 U/L Performed By: #### L 501.2450, L500.4050 #### [facility] [place], [place], [address] Lipase measurementOrdered By : Elias Epps on 02-21-2025 Lipase [Catalytic activity/Vol] 18 U/L 13-75 [facility] Comment on above: Please note:LIPASE r evised reference range effective 22. New Lipase methodology. Expected to produce lower values than the previous assay method. NEW Reference Range: 13 - 75 U/L Potassium measurement (mass/ volume)Ordered By: Elias Epps on 02-21-2025 Potassium (Unsp spec) [Mass/Vol] 4.3 mmol/L 3.3-5.1 [facility] Serum creatinine measurement (mass/volume)Ordered By: Elias Epps on 02-21-2025 Creatinine [Mass/Vol] 0.96 mg/dL 0.70-1.20 [facility] Serum globulin measurementOr dered By: Elias Epps on 02-21-2025 Globulin (S) [Mass/Vol] 3.1 g/dL 2.2-4.2 [facility] Serum glucose measurement (m ass/volume)Ordered By: Elias Epps on 02-21-2025 Glucose [Mass/Vol] 84 mg/dL 70-99 [facility] Serum or plasma alanine thompson otransferase (ALT) measurementOrdered By: Elias Epps on 02-21-2025 ALT [Catalytic activity/Vol] 18 U/L <35 [facility] Serum or plasma albumin darwin urement (mass/volume)Ordered By: Elias Epps on 02-21-2025 Albumin [Mass/Vol] 4.2 g/dL 3.4-4.8 [facility] Serum or plasma albumin/glob ulin mass ratioOrdered By: Elias Epps on 02-21-2025 Albumin/Globulin [Mass ratio] 1.4 {ratio} 0.9-2.4 [facility] Serum or plasma alkaline rc sphatase measurementOrdered By: Elias Epps on 02-21-2025 ALP [Catalytic activity/Vol] 103 U/L 35-104 [facility] Serum or plasma calcium darwin urement (mass/volume)Ordered By: Elias Epps on 02-21-2025 Calcium [Mass/Vol] 10.1 mg/dL 7.6-11.0 [facility] Serum or plasma urea nitroge n measurement (mass/volume)Ordered By: Elias Epps on 02-21-2025 Urea nitrogen [Mass/Vol] 13 mg/dL 4-19 [facility] Sodium levelOrdered By: Elias Epps on 02-21-2025 Sodium [Moles/Vol] 140 mmol/L 133-145 [facility] T4 Free Directon 02-21-2025 T4 FREE DIRECT 1.40 ng/dL Normal 0.76-1.46 [facility] Comment on above: Order Comment: Order Date: 12/13/24Order Info: 3051-0 - L3APxsnr Info: 3016-3 - TSHOrder Info: 3024-7 - T4F Performed By: #### L 501.24440, L506.0400, L501.9520 ####[facility] [address] [place], [address] T4 freeOrdered By: Elias shahid on 02-21-2025 Free T4 [Mass/Vol] 1.40 ng/dL 0.76-1.46 [facility] TSH DL <= 0.005 mIU/L QnOrde red By: Elias Epps on 02-21-2025 TSH Qn 0.196 uIU/mL Low 0.300-4.200 [facility] Thyroid Stim Hormone (TSH)on 02-21-2025 TSH 0.196 uIU/mL Low 0.300-4.200 [facility] Comment on above: Order Comment: Order Date: 12/13/24Order Info: 305-0 - Y7YMpxrp Info: 3016-3 - TSHOrder Info: 3024-7 - T4F Performed By: #### L 501.52637, L506.0400, L501.9520 ####[facility] [address] [place], [address] Total proteinOrdered By: Starr Epps on 02-21-2025 Protein [Mass/Vol] 7.2 g/dL 5.9-8.4 [facility] Absolute lymphocyte countOrd ered By: Elias Epps on 12-10-2024 Lymphocytes Auto (Unsp spec) [#/Vol] 2.52 10*3/uL 0.83-4.51 [facility] Absolute neutrophil countOrd ered By: Elias Epps on 12-10-2024 Neutrophils (Bld) [#/Vol] 4.7 10*3/uL 2.0-7.7 [facility] Anion gap in Serum or Plasma Ordered By: Elias Epps on 12-10-2024 Anion gap [Moles/Vol] 11 mmol/L 5-15 [facility] Automated lymphocyte count a s percentage of total leukocytesOrdered By: Elias Epps on 12-10-2024 Lymphocytes/100 WBC Auto (Unsp spec) 28.5 % 19-41 [facility] BUN/creatinine ratioOrdered By: Elias Epps on 12-10-2024 Urea nitrogen/Creatinine [Mass ratio] 10.1 mg/mg 10-20 [facility] Basophil percentageOrdered B y: Elias Epps on 12-10-2024 Basophils/100 WBC (Bld) 0.9 % 0-1 [facility] Bilirubin, totalOrdered By: Elias Epps on 12-10-2024 Bilirubin [Mass/Vol] 0.36 mg/dL 0.00-1.30 [facility] CBC W/Diff, Automatedon Absolute Lymph 2.52 X10 3/uL Normal 0.83-4.51 [facility] Comment on above: Performed By: #### L 501.9520, L500.4050, L501.2450, L501.70185, L506.0400, L100.0100 ####[facility] [address] [place], [address] Absolute Neut 4.7 X10 3/uL Normal 2.0-7.7 [facility] Comment on above: Performed By: #### L 501.9520, L500.4050, L501.2450, L501.30927, L506.0400, L100.0100 ####[facility] [address] [place], [address] Basophils/100 WBC (Bld) 0.9 % Normal 0-1 [facility] Comment on above: Performed By: #### L 501.9520, L500.4050, L501.2450, L501.31877, L506.0400, L100.0100 ####[facility] [address] [place], [address] Eosinophils/100 WBC (Bld) 8.8 % High 0-5 [facility] Comment on above: Performed By: #### L 501.9520, L500.4050, L501.2450, L501.01133, L506.0400, L100.0100 ####[facility] [address] [place], [address] Erythrocyte distribution width (RBC) [Ratio] 13.0 % Normal 11.6-14.6 [facility] Comment on above: Performed By: #### L 501.9520, L500.4050, L501.2450, L501.57943, L506.0400, L100.0100 ####[facility] [address] [place], [address] Hematocrit (Bld) [Volume fraction] 40.8 % Normal 37-47 [facility] Comment on above: Performed By: #### L 501.9520, L500.4050, L501.2450, L501.31148, L506.0400, L100.0100 ####[facility] [address] [place], [address] Hemoglobin (Bld) [Mass/Vol] 13.6 g/dL Normal 12.0-15.0 [facility] Comment on above: Performed By: #### L 501.9520, L500.4050, L501.2450, L501.49761, L506.0400, L100.0100 ####[facility] [address] [place], [address] IG% 0.300 Normal 0.0-0.9 [facility] Comment on above: Result Comment: IG% - Immature Granulocytes (promyelocytes, myelocytes and metamyelocytes) > 1% indicates that a LEFT SHIFT is Present. Performed By: #### L 501.9520, L500.4050, L501.2450, L501.12910, L506.0400, L100.0100 ####[facility] [address] [place], [address] Lymphocytes/100 WBC (Bld) 28.5 % Normal 19-41 [facility] Comment on above: Performed By: #### L 501.9520, L500.4050, L501.2450, L501.30039, L506.0400, L100.0100 ####[facility] [address] [place], [address] MCH (RBC) [Entitic mass] 31.3 pg Normal 27.0-32.0 [facility] Comment on above: Performed By: #### L 501.9520, L500.4050, L501.2450, L501.22258, L506.0400, L100.0100 ####[facility] [address] [place], [address] MCHC (RBC) [Mass/Vol] 33.3 g/dL Normal 32-36 [facility] Comment on above: Performed By: #### L 501.9520, L500.4050, L501.2450, L501.01743, L506.0400, L100.0100 ####[facility] [address] [place], [address] MCV (RBC) [Entitic vol] 93.8 fL Normal 81-[address] [facility] Comment on above: Performed By: #### L 501.9520, L500.4050, L501.2450, L501.28534, L506.0400, L100.0100 ####[facility] [address] [place], [address] Monocytes/100 WBC (Bld) 8.1 % Normal 0-[address] [facility] Comment on above: Performed By: #### L 501.9520, L500.4050, L501.2450, L501.48763, L506.0400, L100.0100 ####[facility] [address] [place], [address] Neutrophils/100 WBC (Bld) 53.4 % Normal 47-70 [facility] Comment on above: Performed By: #### L 501.9520, L500.4050, L501.2450, L501.60147, L506.0400, L100.0100 ####[facility] [address] [place], [address] Nucleated RBC (Bld) [#/Vol] 0 10*3/uL Normal 0-5 [facility] Comment on above: Performed By: #### L 501.9520, L500.4050, L501.2450, L501.83500, L506.0400, L100.0100 ####[facility] [address] [place], [address] Platelet mean volume (Bld) [Entitic vol] 11.5 fL Normal 6.2-12.0 [facility] Comment on above: Performed By: #### L 501.9520, L500.4050, L501.2450, L501.20730, L506.0400, L100.0100 ####[facility] [address] [place], [address] Platelets (Bld) [#/Vol] 325 10*3/uL Normal 150-450 [facility] Comment on above: Performed By: #### L 501.9520, L500.4050, L501.2450, L501.32472, L506.0400, L100.0100 ####[facility] [address] [place], [address] RBC (Bld) [#/Vol] 4.35 10*6/uL Normal 4.2-5.4 [facility] Comment on above: Performed By: #### L 501.9520, L500.4050, L501.2450, L501.31461, L506.0400, L100.0100 ####[facility] [address] [place], [address] RDW SD 44.5 fl High 35.1-43.9 [facility] Comment on above: Performed By: #### L 501.9520, L500.4050, L501.2450, L501.11774, L506.0400, L100.0100 ####[facility] [address] [place], [address] WBC (Bld) [#/Vol] 8.9 10*3/uL Normal 4.4-11.0 [facility] Comment on above: Performed By: #### L 501.9520, L500.4050, L501.2450, L501.93978, L506.0400, L100.0100 ####[facility] [address] [place], [address] Carbon dioxide, total [Moles /volume] in Central venous bloodOrdered By: Elias Epps on 12-10-2024 CO2 [Moles/Vol] 23.8 mmol/L 21.0-32.0 [facility] Chloride assayOrdered By: Marin Epps on 12-10-2024 Chloride [Moles/Vol] 105 mmol/L 98-108 [facility] Comprehensive Metabolic Prof ilon 12-10-2024 Albumin [Mass/Vol] 4.2 g/dL Normal 3.4-4.8 [facility] Comment on above: Performed By: #### L 501.9520, L500.4050, L501.2450, L501.80984, L506.0400, L100.0100 #### [facility] [address] [place], [address] Albumin/Globulin [Mass ratio] 1.4 {ratio} Normal 0.9-2.4 [facility] Comment on above: Performed By: #### L 501.9520, L500.4050, L501.2450, L501.87203, L506.0400, L100.0100 #### [facility] [address] [place], [address] ALK PHOS 91 U/L Normal 35-104 [facility] Comment on above: Performed By: #### L 501.9520, L500.4050, L501.2450, L501.96706, L506.0400, L100.0100 #### [facility] [address] [place], [address] ALT [Catalytic activity/Vol] 15 U/L Normal <=34 [facility] Comment on above: Performed By: #### L 501.9520, L500.4050, L501.2450, L501.32534, L506.0400, L100.0100 #### [facility] [address] [place], [address] AST [Catalytic activity/Vol] 23 U/L Normal <=31 [facility] Comment on above: Performed By: #### L 501.9520, L500.4050, L501.2450, L501.07991, L506.0400, L100.0100 #### [facility] [address] [place], [address] Bilirubin [Mass/Vol] 0.36 mg/dL Normal 0.00-1.30 [facility] Comment on above: Performed By: #### L 501.9520, L500.4050, L501.2450, L501.25662, L506.0400, L100.0100 #### [facility] [address] [place], [address] BUN/CRE 10.1 RATIO Normal 10-20 [facility] Comment on above: Performed By: #### L 501.9520, L500.4050, L501.2450, L501.50255, L506.0400, L100.0100 #### [facility] [address] [place], [address] Calcium [Mass/Vol] 9.8 mg/dL Normal 7.6-11.0 [facility] Comment on above: Performed By: #### L 501.9520, L500.4050, L501.2450, L501.84223, L506.0400, L100.0100 #### [facility] [address] [place], [address] Chloride [Moles/Vol] 105 mmol/L Normal 98-108 [facility] Comment on above: Performed By: #### L 501.9520, L500.4050, L501.2450, L501.67436, L506.0400, L100.0100 #### [facility] [address] [place], [address] CO2 [Moles/Vol] 23.8 mmol/L Normal 21.0-32.0 [facility] Comment on above: Performed By: #### L 501.9520, L500.4050, L501.2450, L501.40038, L506.0400, L100.0100 #### [facility] [address] [place], [address] Creatinine [Mass/Vol] 0.90 mg/dL Normal 0.70-1.20 [facility] Comment on above: Performed By: #### L 501.9520, L500.4050, L501.2450, L501.67748, L506.0400, L100.0100 #### [facility] [address] [place], [address] GAP 11 Normal 5-15 [facility] Comment on above: Performed By: #### L 501.9520, L500.4050, L501.2450, L501.74173, L506.0400, L100.0100 #### [facility] [address] [place], [address] GFR/1.73 sq M.predicted among non-blacks MDRD (S/P/Bld) [Vol rate/Area] 69 mL/min/{1.73_m2} Normal >60 [facility] Comment on above: Result Comment: mL/m in/1.73m2 CKD-EPI Creatinine Equation (2020) Performed By: #### L 501.9520, L500.4050, L501.2450, L501.09649, L506.0400, L100.0100 #### [facility] [address] [place], [address] Globulin (S) [Mass/Vol] 2.9 g/dL Normal 2.2-4.[address] [facility] Comment on above: Performed By: #### L 501.9520, L500.4050, L501.2450, L501.36823, L506.0400, L100.0100 #### [facility] [address] [place], [address] Glucose [Mass/Vol] 95 mg/dL Normal 70-99 [facility] Comment on above: Performed By: #### L 501.9520, L500.4050, L501.2450, L501.90796, L506.0400, L100.0100 #### [facility] [address] [place], [address] Potassium [Moles/Vol] 3.6 mmol/L Normal 3.3-5.1 [facility] Comment on above: Performed By: #### L 501.9520, L500.4050, L501.2450, L501.79105, L506.0400, L100.0100 #### [facility] [address] [place], [address] Sodium [Moles/Vol] 140 mmol/L Normal 133-145 [facility] Comment on above: Performed By: #### L 501.9520, L500.4050, L501.2450, L501.88030, L506.0400, L100.0100 #### [facility] [address] [place], [address] T PROT 7.1 g/dL Normal 5.9-8.4 [facility] Comment on above: Performed By: #### L 501.9520, L500.4050, L501.2450, L501.71235, L506.0400, L100.0100 #### [facility] [address] [place], [address] Urea nitrogen [Mass/Vol] 9 mg/dL Normal 4-19 [facility] Comment on above: Performed By: #### L 501.9520, L500.4050, L501.2450, L501.18791, L506.0400, L100.0100 #### [facility] [address] [place], [place], [address] Eosinophil percentageOrdered By: Elias Epps on 12-10-2024 Eosinophils/100 WBC (Bld) 8.8 % High 0-5 [facility] Erythrocyte distribution wid th ratioOrdered By: Elias Epps on 12-10-2024 Erythrocyte distribution width (RBC) [Ratio] 13.0 % 11.6-14.6 [facility] Erythrocyte distribution wid th standard deviationOrdered By: Elias Epps on 12-10-2024 Erythrocyte distribution width (RBC) [Ratio] 44.5 fl High 35.1-43.9 [facility] Free T3on 12-10-2024 Free T3 [Mass/Vol] 3.6 pg/mL Normal 2.18-3.98 [facility] Comment on above: Performed By: #### L 501.9520, L500.4050, L501.2450, L501.28041, L506.0400, L100.0100 #### [facility] [address] [place], [place], [address] Free Y2Ghmhbxm By: Elias shahid on 12-10-2024 Free T3 [Mass/Vol] 3.6 pg/mL 2.18-3.98 [facility] Glomerular filtration rate ( GFR) estimation/1.73 sq m using serum, plasma, or whole bOrdered By: Elias Epps on 12-10-2024 GFR/1.73 sq M.predicted among non-blacks MDRD (S/P/Bld) [Vol rate/Area] 69 mL/min/{1.73_m2} >60 [facility] Comment on above: mL/min/1.73m2 CKD-EP I Creatinine Equation (2020) Hematocrit Auto (Bld) [Volum e fraction]Ordered By: Elias Epps on 12-10-2024 Hematocrit (Bld) [Volume fraction] 40.8 % 37-47 [facility] Hemoglobin measurementOrdere d By: Elias Epps on 12-10-2024 Hemoglobin (Bld) [Mass/Vol] 13.6 g/dL 12.0-15.0 [facility] Immature granulocytes/100 WB C Auto (Bld)Ordered By: Elias Epps on 12-10-2024 Immature granulocytes/100 WBC (Bld) 0.300 % 0.0-0.9 [facility] Comment on above: IG% - Immature Granu locytes (promyelocytes, myelocytes and metamyelocytes) > 1% indicates that a LEFT SHIFT is Present. Laboratory - Chemistry and C hemistry - challengeOrdered By: Elias Epps on 12-10-2024 AST [Catalytic activity/Vol] 23 U/L <32 [facility] Lipaseon 12-10-2024 Lipase [Catalytic activity/Vol] 23 U/L Normal 13-75 [facility] Comment on above: Result Comment: Og keith note: LIPASE revised reference range effective 22. New Lipase methodology. Expected to produce lower values than the previous assay method. NEW Reference Range: 13 - 75 U/L Performed By: #### L 501.9520, L500.4050, L501.2450, L501.04158, L506.0400, L100.0100 #### [facility] [place], [address] Lipase measurementOrdered By : Elias Epps on 12-10-2024 Lipase [Catalytic activity/Vol] 23 U/L 13-75 [facility] Comment on above: Please note:LIPASE r evised reference range effective 22. New Lipase methodology. Expected to produce lower values than the previous assay method. NEW Reference Range: 13 - 75 U/L MCV (mean corpuscular volume ) determinationOrdered By: Elias Epps on 12-10-2024 MCV (RBC) [Entitic vol] 93.8 fL 81-99 [facility] Mean corpuscular hemoglobin (MCH) determinationOrdered By: Elias Epps on 12-10-2024 MCH (RBC) [Entitic mass] 31.3 pg 27.0-32.0 [facility] Mean corpuscular hemoglobin concentration (MCHC) determinationOrdered By: Elias Epps on 12-10-2024 MCHC (RBC) [Mass/Vol] 33.3 g/dL 32-36 [facility] Mean platelet volume determi nationOrdered By: Elias Epps on 12-10-2024 Platelet mean volume (Bld) [Entitic vol] 11.5 fL 6.2-12.0 [facility] Monocyte percentageOrdered B y: Elias Epps on 12-10-2024 Monocytes/100 WBC (Bld) 8.1 % 0-10 [facility] Neutrophil percentageOrdered By: Elias Epps on 12-10-2024 Neutrophils/100 WBC (Bld) 53.4 % 47-70 [facility] Nucleated red blood cell per centageOrdered By: Elias Epps on 12-10-2024 Nucleated RBC/100 WBC (Bld) [Ratio] 0 % 0-5 [facility] Platelet countOrdered By: Marin Epps on 12-10-2024 Platelets (Bld) [#/Vol] 325 10*3/uL 150-450 [facility] Potassium measurement (mass/ volume)Ordered By: Elias Epps on 12-10-2024 Potassium (Unsp spec) [Mass/Vol] 3.6 mmol/L 3.3-5.1 [facility] RBC Auto (Bld) [#/Vol]Ordere d By: Elias Epps on 12-10-2024 RBC (Bld) [#/Vol] 4.35 10*6/uL 4.2-5.4 [facility] Serum creatinine measurement (mass/volume)Ordered By: Elias Epps on 12-10-2024 Creatinine [Mass/Vol] 0.90 mg/dL 0.70-1.20 [facility] Serum globulin measurementOr dered By: Elias Epps on 12-10-2024 Globulin (S) [Mass/Vol] 2.9 g/dL 2.2-4.[address] [facility] Serum glucose measurement (m ass/volume)Ordered By: Elias Epps on 12-10-2024 Glucose [Mass/Vol] 95 mg/dL 70-99 [facility] Serum or plasma alanine thompson otransferase (ALT) measurementOrdered By: Elias Epps on 12-10-2024 ALT [Catalytic activity/Vol] 15 U/L <35 [facility] Serum or plasma albumin darwin urement (mass/volume)Ordered By: Elias Epps on 12-10-2024 Albumin [Mass/Vol] 4.2 g/dL 3.4-4.8 [facility] Serum or plasma albumin/glob ulin mass ratioOrdered By: Elias Epps on 12-10-2024 Albumin/Globulin [Mass ratio] 1.4 {ratio} 0.9-2.4 [facility] Serum or plasma alkaline rc sphatase measurementOrdered By: Elias Epps on 12-10-2024 ALP [Catalytic activity/Vol] 91 U/L 35-104 [facility] Serum or plasma calcium darwin urement (mass/volume)Ordered By: Elias Epps on 12-10-2024 Calcium [Mass/Vol] 9.8 mg/dL 7.6-11.0 [facility] Serum or plasma urea nitroge n measurement (mass/volume)Ordered By: Elias Epps on 12-10-2024 Urea nitrogen [Mass/Vol] 9 mg/dL 4-19 [facility] Sodium levelOrdered By: Elias Epps on 12-10-2024 Sodium [Moles/Vol] 140 mmol/L 133-145 [facility] T4 Free Directon 12-10-2024 T4 FREE DIRECT 1.50 ng/dL High 0.76-1.46 [facility] Comment on above: Performed By: #### L 501.9520, L500.4050, L501.2450, L501.18997, L506.0400, L100.0100 ####[facility] [address] [place], [place], [address] T4 freeOrdered By: Elias shahid on 12-10-2024 Free T4 [Mass/Vol] 1.50 ng/dL High 0.76-1.46 [facility] TSH DL <= 0.005 mIU/L QnOrde red By: Elias Epps on 12-10-2024 TSH Qn 0.190 uIU/mL Low 0.300-4.200 [facility] Thyroid Stim Hormone (TSH)on 12-10-2024 TSH 0.190 uIU/mL Low 0.300-4.200 [facility] Comment on above: Performed By: #### L 501.9520, L500.4050, L501.2450, L501.34010, L506.0400, L100.0100 ####[facility] [address] [place], [address] Total proteinOrdered By: Starr Epps on 12-10-2024 Protein [Mass/Vol] 7.1 g/dL 5.9-8.4 [facility] White blood cell (WBC) count Ordered By: Elias Epps on 12-10-2024 WBC (Bld) [#/Vol] 8.9 10*3/uL 4.4-11.0 [facility] Free T3on 10-01-2024 Free T3 [Mass/Vol] 3.2 pg/mL Normal 2.18-3.98 [facility] Comment on above: Order Comment: Order Date: 04/10/24 Order Info: 3051-0 - T3F Order Info: 301-3 - TSH Order Info: 3024-01 - T4F Performed By: #### L 501.19868, L506.0400, L501.9520 #### [facility] [address] [place], [address] Free P4Fbjfcyq By: Elias shahid on 10-01-2024 Free T3 [Mass/Vol] 3.2 pg/mL 2.18-3.98 [facility] Free Triiodothyronine (T3) pg/dL 3.2 pg/mL 2.18-3.98 [facility] T4 Free Directon 10-01-2024 T4 FREE DIRECT 1.50 ng/dL High 0.76-1.46 [facility] Comment on above: Order Comment: Order Date: 04/10/24 Order Info: 3051-0 - T3F Order Info: 3016-3 - TSH Order Info: 3027 - T4F Performed By: #### L 501.47587, L506.0400, L501.9520 #### [facility] [address] [place], [address] T4 freeOrdered By: Elias shahid on 10-01-2024 Free T4 [Mass/Vol] 1.50 ng/dL High 0.76-1.46 [facility] TSH DL <= 0.005 mIU/L QnOrde red By: Elias Epps on 10-01-2024 Thyroid Stimulating Hormone (TSH) 0.144 uIU/mL Low 0.300-4.200 [facility] TSH Qn 0.144 uIU/mL Low 0.300-4.200 [facility] Thyroid Stim Hormone (TSH)on 10-01-2024 TSH 0.144 uIU/mL Low 0.300-4.200 [facility] Comment on above: Order Comment: Order Date: 04/10/24 Order Info: 3051-0 - T3F Order Info: 3016-3 - TSH Order Info: 3024-7 - T4F Performed By: #### L 501.00772, L506.0400, L501.9520 #### [facility] [address] [place], [place], [address] Colonoscopy Reporton 024 Colonoscopy Report [facility] Medical Records Department [address] [place] [address] Colonoscopy Report MR#: [id number] Acct: [id number] Name: MELISSA FOSTER Rep #: [id number] : 1955 69 From: Karen Muse MD PCP: Dr. Elias Epps MD Status:[facility] Patient Name: Melissa Foster Procedure Date: 07/09/2024 [...] pathology results. Procedure Code(s): --- Professional --- 71677, PT, Colonoscopy, flexible; with biopsy, single or multiple Diagnosis Code(s): --- Professional --- Z86.010, Personal history of colonic polyps D12.0, Benign neoplasm of cecum K57.30, Diverticulosis of large intestine without perforation or abscess without bleeding CPT copyright 2021 [employer]. All rights reserved. The codes documented in this report are preliminary and upon pipelines superintendent review may be revised to meet current compliance requirements. MD Karen Gates MD 07/09/2024 9:48:18 AM This report has been signed electronically. Number of Addenda: 0 Note Initiated On: 07/09/2024 9:17 AM 07/09/24947 Date Karen Ayala Signature: Date (if indicated) CC: Dr. Elias Epps MD; Dr. Karen Muse MD Date Dictated: 07/09/24916 Date Transcribed: Program Administrator: FLORES Mendez [facility] MR/POSTOP.Deonna 07-09-2024 MR/POSTOP.[facility] Medical Records Department [address] [place] [address] Anesthesia Postop Eval I 07/09/24953 MR#: [id number] Acct: [id number] Name: MELISSA FOSTER Rep #: [id number] : 1955 69 From: Adolfo Louise PCP: Dr. Elias Epps MD Status:REG [facility] Y Race: C Location: [place] [address] Anesthesia: Postop Eval I Current Vital Signs [...] Anesthesia document: Postop Eval 1 completed: Yes 07/09/24955 Date Adolfo Ayala Signature: CC: Signed Normal [facility] MR/KRKYKWAQ1ab 07-09-2024 MR/POSTOPAN2 [facility] Medical Records Department [address] [place] [address] Anesthesia Postop Eval II 07/09/24 104 MR#: [id number] Acct: [id number] Name: MELISSA FOSTER Rep #: [id number] : 1955 69 From: Mariano Almonte MD PCP: Dr. Elias Epps MD Status:DEP [facility] Y Race: C Location: EN Anesthesia Postop [...] Vomiting: No Complications Anesthesia Complication: No 07/09/24 104 Date Mariano Almonte MD Cosigner Signature: Date CC: Signed Normal [facility] Surgery Specimen Level Anita 07-09-2024 Surgery Specimen Level IV ----- Patient Age/Sex Location Account Attending Physician MELISSA FOSTER 69/F EN [id number] Dr. Karen Muse MD Specimen: [id number] Received: 07/09/24 Status: LINDA Dsouza Num: [id number] Spec Type: COLON BX Subm Dr: Dr. Karen Muse MD HEADER OPERATION: Colonoscopy biopsy PRE-OP DIAGNOSIS: Personal history of colonic polyps TISSUE SUBMITTED: Cecum polyp biopsy MICROSCOPIC DIAGNOSIS Cecum polyp, biopsy: Fragments of tubular adenoma. JANETTE/mr 07/12/2024 MICROSCOPIC DESCRIPTION Slides are reviewed. GROSS DESCRIPTION Received in fixative is one container labeled with the patient's name and designated Cecum polyp biopsy. The specimen consists of multiple irregular fragments of light jeff soft tissue that in aggregate measure 0.6 x 0.2 x 0.1 cm. The specimen is totally submitted in one cassette. / 07/10/2024 TC:1 CPT:56045 Patient Age/Sex Location Account Attending Physician MELISSA FOSTER 69/F EN [id number] Dr. Karen Muse MD Signed (signatur e on file) Dr. Stan Noriega MD 07/12/24 1042 Normal [facility] Comment on above: Performed By: #### L 501.60389, L506.0400, L501.9520 #### [facility] [address] [place], [address] MR/PAT.JEANEon 07-06-2024 MR/PAT.JEANE [facility] Medical Records Department [address] [place] [address] PAT - Anesthesia 07/06/24 1047 MR#: [id number] Acct: [id number] Name: MELISSA FOSTER Rep #: [id number] : 1955 69 From: Demario Stone MD PCP: Dr. Elias Epps MD Status:PRE SD Y Race: C Location: EN Pre-Assessment Diagnosis/Proposed Procedure Planned Operative Procedure(s): CSCOPE OA Anesthesia History Anesthesia History - patternmaker hand: Anesthesia History - patternmaker hand Hx Hospitalization No 07/06/24 10:22 Any Problems [...] take am of surgery PONV PONV - patternmaker hand: PONV - patternmaker hand Female Yes 07/06/24 10:22 HX of Motion [...] 05/04/24 10:44 Respiratory Assessment Respiratory Assessment - patternmaker hand: Respiratory Tract Infection Hx - patternmaker hand Hx Respiratory Tract Infection No 07/06/24 10:22 STOP Sleep Apnea STOP Sleep Apnea - patternmaker hand: STOP Sleep Apnea - patternmaker hand Hx Hypertension Yes: CONTROLLED WITH MED 07/06/24 [...] Tobacco Use History Tobacco Use History - patternmaker hand: Tobacco Use History - patternmaker hand Tobacco Use Smoking Status Never smoker 07/06/24 10:22 Hx Tobacco Use No 07/06/24 10:22 Years Smoking Packs Smoked per Day Smoking Cessation Date was within the last 15 years Hx Smoking Cessation Date Hx Smoking Cessation Counseling Hematologic Medial History Hematologic Hx - patternmaker hand: 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 Specify any problems Hx of Preganancy in last 3 No 07/06/24 10:22 Months Nurse Filling Out Transfusion DSCHRIBER 07/06/24 10:22 Questions: Date: 07/06/24 07/06/24 10:22 Time: 10:24 07/06/24 10:22 Patient unable to answer at this time (ie. confused, unrespo /Reproduct ion History /Reproduct radhames History - patternmaker hand: /Reproduct radhames Hx- patternmaker hand Hx Now No 07/06/24 10:22 Gestational Age (in weeks): EDC: Hx Hx Para Hx Section SAB No 07/06/24 10:22 PFSH Medical History (Updated 07/06/24 @ 10:31 by [...] unit) tablet (more content not included)... Normal [facility] SCRN MAMM (CAD)W/IMELDA BILATo n 06-25-2024 SCRN MAMM (CAD)W/IMELDA BILAT [facility] Imaging Services [address] [place] [address] SCRN MAMM (CAD)W/IMELDA BILAT MR#: [id number] Acct: [id number] Name: MELISSA FOSTER Rep #: [id number] : 1955 F 69 From: Jose Antonio berkowitz MD PCP: Dr. Elias Epps MD Status: [facility] Study: SCRN MAMM (CAD)W/IMELDA BILAT Date of Exam: 06/10 01/01 Exam# [id number] Ordering Dr: Elias Epps MD -[id number] MAMMOGRAPHY - BILATERAL SCREENING REASON FOR [...] delay biopsy of a clinically suspicious abnormality. [id number] Electronically Signed: Jose Antonio Kumar MD at 14:26 EST , CC: Dr. Elias Epps MD Program Administrator: Signed Normal [facility] - Chemistry and C hemistry - challengeOrdered By: Dr. Epps on 09-13-2022 Free T4 [Mass/Vol] 1.41 ng/dL 0.76-1.46 [facility] No Panel InformationOrdered By: Dr. Epps on 09-13-2022 Free Triiodothyronine (T3) pg/dL 3.0 pg/mL 2.18-3.98 [facility] Thyroid Stimulating Hormone (TSH) 0.44 uIU/mL 0.358-3.74 [facility] CNOVon 08-13-2022 CNOV Office Visit ([facility]) ---- MELISSA FOSTER ([id number]) 1955 F Date Time Provider Department 08/13/22 8:45 AM BLAKE MURO [facility] During your visit today, we recorded the [...] 473 mLRfl: 0 STREP A MOLECULAR (POC) [7782982] Order #: [id number] STREP A MOLECULAR (POC) [1571960] Order #: [id number]. #:[id number] Prescriptions as of 08/18/2022 - doxycycline monohydrate [...] mouth four times daily. Encounter Status:Closed by [facility] ([facility] ---- MELISSA FOSTER ([id number]) 1955 F Date Time Provider Department 08/13/22 BLAKE MURO [facility] During your visit today, we recorded the following information about you: Abundio Smith RN 08/13/2022 11:47 AM Signed Patient is having trouble filling brompheniramine-pse udoephedrine (RYNEX PSE,VALU-DIAN) 1-15 mg/5 mL liquid at [facility]. Detailed message left for patient with the following: Patient can either take Mucinex OTC and pseudaphed following the directions on packet. Request pharmacy to transfer prescription once she finds a pharmacy that carries prescription. or Call back once she finds a pharmacy with it in stock and [facility] will E-script to that pharmacy per provider that patient seen in [facility]. Abundio Smith RN Allergies As of Date: 08/13/2022 [...] [E6*09/13/2013 Hypothyroid [E03.9] 09/13/2013 Encounter Status:Closed by ABUNDIO SMITH on 08/13/22 [facility] Absolute lymphocyte countOrd ered By: Dr. Epps on 08-02-2022 Lymphocytes Auto (Unsp spec) [#/Vol] 3.00 10*3/uL 0.83-4.51 [facility] Basophil percentageOrdered B y: Dr. Epps on 08-02-2022 Basophils/100 WBC (Bld) 0.9 % 0-1 [facility] Bilirubin [Mass/Vol] 0.30 mg/dL 0.20-1.00 [facility] Comment on above: For patients on eltr ombopag therapy, use of Dimension [place] TBIL is not recommended. Chloride [Moles/Vol] 108 mmol/L 98-107 [facility] Eosinophils/100 WBC (Bld) 14.1 % 0-5 [facility] Glucose [Mass/Vol] 83 mg/dL 74-106 [facility] Neutrophils (Bld) [#/Vol] 4.2 10*3/uL 2.0-7.7 [facility] Neutrophils/100 WBC (Bld) 43.8 % 47-70 [facility] Potassium [Moles/Vol] 3.8 mmol/L 3.5-5.1 [facility] Protein [Mass/Vol] 7.3 g/dL 6.4-8.2 [facility] Sodium [Moles/Vol] 141 mmol/L 136-145 [facility] WBC (Bld) [#/Vol] 9.6 10*3/uL 4.4-11.0 [facility] Blood erythrocytes count (nu mber/volume)Ordered By: Dr. Epps on 08-02-2022 RBC (Bld) [#/Vol] 4.26 10*6/uL 4.2-5.4 [facility] Blood hemoglobin measurement (mass/volume)Ordered By: Dr. Epps on 08-02-2022 Hemoglobin (Bld) [Mass/Vol] 13.1 g/dL 12.0-15.0 [facility] Blood lymphocytes/100 leukoc ytesOrdered By: Dr. Epps on 08-02-2022 Lymphocytes/100 WBC (Bld) 31.4 % 19-41 [facility] Blood monocytes/100 leukocyt esOrdered By: Dr. Epps on 08-02-2022 Monocytes/100 WBC (Bld) 9.4 % 0-10 [facility] Blood platelet mean volumeOr dered By: Dr. Epps on 08-02-2022 Platelet mean volume (Bld) [Entitic vol] 9.9 fL 6.2-12.0 [facility] Determination of erythrocyte mean corpuscular volume (MCV)Ordered By: Dr. Epps on 08-02-2022 MCV (RBC) [Entitic vol] 94.4 fL 81-99 [facility] Hematocrit Auto (Bld) [Volum e fraction]Ordered By: Dr. Epps on 08-02-2022 Hematocrit (Bld) [Volume fraction] 40.2 % 37-47 [facility] - Chemistry and C hemistry - challengeOrdered By: Dr. Epps on 08-02-2022 ALP [Catalytic activity/Vol] 89 U/L 45-117 [facility] ALT [Catalytic activity/Vol] 31 U/L 13-56 [facility] CO2 [Moles/Vol] 26.0 mmol/L 21.0-32.0 [facility] Free T4 [Mass/Vol] 1.29 ng/dL 0.76-1.46 [facility] Globulin (S) [Mass/Vol] 4.0 g/dL 2.2-4.2 [facility] Urea nitrogen/Creatinine [Mass ratio] 11.0 mg/mg 10-20 [facility] - Hematology and Cell countsOrdered By: Dr. Epps on 08-02-2022 Erythrocyte distribution width (RBC) [Entitic vol] 45.5 fL 35.1-43.9 [facility] Erythrocyte distribution width (RBC) [Ratio] 13.2 % 11.6-14.6 [facility] Immature granulocytes/100 WBC (Bld) 0.400 % 0.0-0.9 [facility] Comment on above: IG% - Immature Granu locytes (promyelocytes, myelocytes and metamyelocytes) > 1% indicates that a LEFT SHIFT is Present. MCH (RBC) [Entitic mass] 30.8 pg 27.0-32.0 [facility] Nucleated RBC/100 WBC (Bld) [Ratio] 0 % 0-5 [facility] MCHC Auto (RBC) [Mass/Vol]Or dered By: Dr. Epps on 08-02-2022 MCHC (RBC) [Mass/Vol] 32.6 g/dL 32-36 [facility] No Panel InformationOrdered By: Dr. Epps on 08-02-2022 Estimated GFR (MDRD) Amer 79 mL/min >60 [facility] Comment on above: GFR Calc Estimated GFR (MDRD) Non-Af Amer 65 mL/min >60 [facility] Comment on above: Non- GFR Calc Free Triiodothyronine (T3) pg/dL 3.2 pg/mL 2.18-3.98 [facility] Thyroid Stimulating Hormone (TSH) 0.28 uIU/mL 0.358-3.74 [facility] Urine Microalbumin/Creatinine Ratio 8.8 mg/g CRE <30 [facility] Vitamin D 25-Hydroxy 48.6 ng/mL [facility] Comment on above: Vitamin D 25(OH) Sta tus Range Deficiency <20 ng/mL (50nmol/L) Insufficiency 20 - 30 ng/mL (50 - 75 nmol/L) Sufficiency 30 - 100 ng/mL (75 - 250 nmol/L) Toxicity >100 ng/mL (>250 nmol/L) Platelets bldOrdered By: Dr. Epps on 08-02-2022 Platelets (Bld) [#/Vol] 363 10*3/uL 150-450 [facility] Serum or plasma albumin darwin urement (mass/volume)Ordered By: Dr. Epps on 08-02-2022 Albumin [Mass/Vol] 3.3 g/dL 3.2-5.0 [facility] Serum or plasma albumin/glob ulin mass ratioOrdered By: Dr. Epps on 08-02-2022 Albumin/Globulin [Mass ratio] 0.8 {ratio} 0.9-2.4 [facility] Serum or plasma calcium darwin urement (mass/volume)Ordered By: Dr. Epps on 08-02-2022 Calcium [Mass/Vol] 9.1 mg/dL 8.5-10.1 [facility] Serum or plasma creatinine m easurement (mass/volume)Ordered By: Dr. Epps on 08-02-2022 Creatinine [Mass/Vol] 0.91 mg/dL 0.55-1.02 [facility] Comment on above: The validity of the calculated GFR & GFRAA in patients over 70 years has not been determined. Clinical correlation is essential. Serum or plasma urea nitroge n measurement (mass/volume)Ordered By: Dr. Epps on 08-02-2022 Urea nitrogen [Mass/Vol] 10 mg/dL 7-18 [facility] Thin prep Papanicolaou smear with manual screeningOrdered By: Dr. Epps on 08-02-2022 Thin prep Papanicolaou smear with manual screening 19 U/L 15-37 [facility] Thin prep Papanicolaou smear with manual screening 7 5-15 [facility] Thin prep Papanicolaou smear with manual screening 5.6 mg/L NO RANGE EST. [facility] Urine creatinine measurement (mass/volume)Ordered By: Dr. Epps on 08-02-2022 Creatinine (U) [Mass/Vol] 64.00 mg/dL NO RANGE EST. [facility] CNOVon 05-15-2022 CNOV Office Visit (UCWSTR) ---- MELISSA FOSTER ([id number]) 1955 F Date Time Provider Department 05/15/22 1:00 PM CYNDIE CALLEJAS [facility] During your visit today, we recorded the following information about you: Temperature Pulse Respiration Blood pressure 99 degrees 97/minute 21/minute 140/90 Weight 88.1 kg Cyndie Callejas APRN.CNP 05/15/2022 1:59 PM Signed Subjective HPI Melissa [...] Report to ED if worsening Cyndie Callejas APRN.CARE TEAM COORDINATOR SCHEDULER Allergies As of Date: 05/15/2022 Noted Allergy Reaction BIAXIN (CLA (more content not included)... Normal [facility] Vital Signs Date Time Vital Sign Value Performing Clinician Facility 05-22-2025 10:21-0500 Body height 160 cm Saul Connors MD Work Phone: [facility] 05-22-2025 10:21-0500 Body height 160.02 cm Saul Connors MD Work Phone: [facility] 05-22-2025 10:21-0500 Body mass index (BMI) [Ratio] 30.58 kg/m2 Saul Connors MD Work Phone: [facility] 05-22-2025 10:21-0500 Body weight 78 kg Saul Connors MD Work Phone: [facility] 05-22-2025 10:21-0500 Body weight 78.02 kg Saul Connors MD Work Phone: [facility] 05-22-2025 10:21-0500 BP SITE #1 Saul Connors MD Work Phone: [facility] 05-22-2025 10:21-0500 Diastolic blood pressure 79 mm[Hg] Saul Connors MD Work Phone: [facility] 05-22-2025 10:21-0500 HGHTCHNVIS Saul Connors MD Work Phone: [facility] 05-22-2025 10:21-0500 Systolic blood pressure 120 mm[Hg] Saul Connors MD Work Phone: [facility] 05-22-2025 10:21-0500 VITALSDONE Saul Connors MD Work Phone: [facility] 04-03-2025 12:26-0400 Body height 160 cm Saul Connors MD Work Phone: [facility] 04-03-2025 12:26-0400 Body height 160.02 cm Saul Connors MD Work Phone: [facility] 04-03-2025 12:26-0400 Body mass index (BMI) [Ratio] 30.58 kg/m2 Saul Connors MD Work Phone: [facility] 04-03-2025 12:26-0400 Body weight 78 kg Saul Connors MD Work Phone: [facility] 04-03-2025 12:26-0400 Body weight 78.02 kg Saul Connors MD Work Phone: [facility] 04-03-2025 12:26-0400 BP SITE #1 Saul Connors MD Work Phone: [facility] 04-03-2025 12:26-0400 Diastolic blood pressure 84 mm[Hg] Saul Connors MD Work Phone: [facility] 04-03-2025 12:26-0400 Heart rate 74 /min Saul Connors MD Work Phone: [facility] 04-03-2025 12:26-0400 HGHTCHNVIS Saul Connors MD Work Phone: [facility] 04-03-2025 12:26-0400 Systolic blood pressure 132 mm[Hg] Saul Connors MD Work Phone: [facility] 04-03-2025 12:26-0400 VITALSDONE Saul Connors MD Work Phone: [facility] 04-01-2025 13:45-0400 Body height 160 cm Fredy Corbett MD Work Phone: [facility] 04-01-2025 13:45-0400 Body height 160.02 cm Fredy Corbett MD Work Phone: [facility] 04-01-2025 13:45-0400 Body mass index (BMI) [Ratio] 31.29 kg/m2 Fredy Corbett MD Work Phone: [facility] 04-01-2025 13:45-0400 Body weight 80 kg Fredy Corbett MD Work Phone: [facility] 04-01-2025 13:45-0400 Body weight 79.83 kg Fredy Corbett MD Work Phone: [facility] 04-01-2025 13:45-0400 BP SITE #1 Fredy Corbett MD Work Phone: [facility] 04-01-2025 13:45-0400 Diastolic blood pressure 77 mm[Hg] Fredy Corbett MD Work Phone: [facility] 04-01-2025 13:45-0400 HGHTCHNVIS Fredy Corbett MD Work Phone: [facility] 04-01-2025 13:45-0400 Systolic blood pressure 129 mm[Hg] Fredy Corbett MD Work Phone: [facility] 04-01-2025 13:45-0400 VITALSDONE Fredy Corbett MD Work Phone: [facility] 07-09-2024 10:05-0500 Body temperature 97.1 [degF] Dr. Elias Epps MD Work Phone: [facility] 07-09-2024 10:05-0500 Diastolic blood pressure 70 mm[Hg] Dr. Elias Epps MD Work Phone: [facility] 07-09-2024 10:05-0500 Heart rate 73 /min Dr. Elias Epps MD Work Phone: [facility] 07-09-2024 10:05-0500 Respiratory rate 16 /min Dr. Elias Epps MD Work Phone: [facility] 07-09-2024 10:05-0500 SaO2% (BldA) [Mass fraction] 98 % Dr. Elias Epps MD Work Phone: 8(685)963-528667 [place] [address] 07-09-2024 10:05-0500 Systolic blood pressure 140 mm[Hg] Dr. Elias Epps MD Work Phone: 8(916)685-835064 [place] [address] 07-09-2024 07:23-0500 Body height 160.[address] Elias Epps MD Work Phone: 3(522)436-325864 [place] [address] 07-09-2024 07:23-0500 Body mass index (BMI) [Ratio] 34.2 kg/m2 Dr. Elias Epps MD Work Phone: 9(591)283-452164 [place] [address] 07-09-2024 07:23-0500 Body weight 87.[address] Elias Epps MD Work Phone: 2(099)519-430264 [place] [address] 08-31-2023 05:54-0500 Body height 160.[address] Elias Epps Work Phone: 2(853)824-053364 [place] [address] 08-31-2023 05:54-0500 Body mass index (BMI) [Ratio] 34.2 kg/m2 Dr. Elias Epps Work Phone: 9(556)692-030664 [place] [address] 08-31-2023 05:54-0500 Body temperature 98.4 [degF] Dr. Elias Epps Work Phone: 2(022)869-081164 [place] [address] 08-31-2023 05:54-0500 Body weight 87.[address] Elias Epps Work Phone: 9(756)385-741245 [address] 08-31-2023 05:54-0500 Diastolic blood pressure 84 mm[Hg] Dr. Elias Epps Work Phone: 9(589)350-910645 [address] 08-31-2023 05:54-0500 Heart rate 79 /min Dr. Elias Epps Work Phone: 8(207)662-894364 [place] [address] 08-31-2023 05:54-0500 Respiratory rate 18 /min Dr. Elias Epps Work Phone: 4(031)955-694167 [place] [address] 08-31-2023 05:54-0500 SaO2% (BldA) [Mass fraction] 95 % Dr. Elias Epps Work Phone: [facility] 08-31-2023 05:54-0500 Systolic blood pressure 135 mm[Hg] Dr. Elias Epps Work Phone: [facility] 08-28-2022 12:29-0500 Body height 160.[address] Elias Epps Work Phone: [facility] 08-28-2022 12:29-0500 Body mass index (BMI) [Ratio] 35 kg/m2 Dr. Elias Epps Work Phone: [facility] 08-28-2022 12:29-0500 Body temperature 98.6 [degF] Dr. Elias Epps Work Phone: [facility] 08-28-2022 12:29-0500 Body weight 89.[address] Elias Epps Work Phone: [facility] 08-28-2022 12:29-0500 Diastolic blood pressure 78 mm[Hg] Dr. Elias Epps Work Phone: [facility] 08-28-2022 12:29-0500 Heart rate 116 /min Dr. Elias Epps Work Phone: [facility] 08-28-2022 12:29-0500 Respiratory rate 14 /min Dr. Elias Epps Work Phone: [facility] 08-28-2022 12:29-0500 SaO2% (BldA) [Mass fraction] 96 % Dr. Elias Epps Work Phone: [facility] 08-28-2022 12:29-0500 Systolic blood pressure 174 mm[Hg] Dr. Elias Epps Work Phone: [facility] 05-15-2022 13:33-0400 Body temperature 99 [degF] Cyndie Callejas APRN.CARE TEAM COORDINATOR SCHEDULER Work Phone: [facility] 05-15-2022 13:33-0400 Body weight 88.09 kg Cyndie Callejas APRN.CARE TEAM COORDINATOR SCHEDULER Work Phone: [facility] 05-15-2022 13:33-0400 Diastolic blood pressure 90 mm[Hg] Cyndie Callow MANAGEMENT SPECIALIST.CARE TEAM COORDINATOR SCHEDULER Work Phone: [facility] 05-15-2022 13:33-0400 Heart rate 97 /min Cyndie Call MANAGEMENT SPECIALIST.CARE TEAM COORDINATOR SCHEDULER Work Phone: [facility] 05-15-2022 13:33-0400 Respiratory rate 21 /min Call MANAGEMENT SPECIALIST.CARE TEAM COORDINATOR SCHEDULER Work Phone: [facility] 05-15-2022 13:33-0400 SaO2% (BldA) [Mass fraction] 95 % MANAGEMENT SPECIALIST.CARE TEAM COORDINATOR SCHEDULER Work Phone: [facility] 05-15-2022 13:33-0400 Systolic blood pressure 140 mm[Hg] Call MANAGEMENT SPECIALIST.CARE TEAM COORDINATOR SCHEDULER Work Phone: [facility] Encounters Encounter Date Encounter Type Care Provider Facility Start: 05-22-2025 In-person encounter Saul lehman MD Work Phone: [facility] Work Phone: Start: 05-22-2025 Visit out of hours Saul song MD Work Phone: [employer] [facility] Work Phone: Start: 05-21-2025 [facility] Facility:[facility] Start: 05-13-2025 End: 05-13-2025 ambulatory [facility] Facility:[facility] Start: 04-03-2025 In-person encounter Saul lehman MD Work Phone: [facility] Work Phone: Start: 04-03-2025 Visit out of hours Saul song MD Work Phone: [employer] [facility] Work Phone: Start: 04-01-2025 Visit out of hours Fredy prater MD Work Phone: [employer] Work Phone: Start: 04-01-2025 In-person encounter Fredy quezada MD Work Phone: [facility] Work Phone: Start: 02-21-2025 End: 02-21-[address] Elias Epps MD Work Phone: -Laboratory [facility] Start: 02-21-2025 End: 02-21-[address] Elias Epps MD -Laboratory [facility] Start: 02-21-2025 End: 02-21-2025 ambulatory Elias Epps Facility:[facility] Start: 12-10-2024 End: 12-10-[address] Elias Epps MD Work Phone: [facility] Work Phone: Start: 12-10-2024 End: 12-10-[address] Elias Epps MD -Laboratory [facility] Work Phone: Start: 12-10-2024 End: 12-10-2024 ambulatory Elias Epps Facility:[facility] Start: 10-01-2024 End: 10-01-[address] Elias Epps MD Work Phone: [facility] Work Phone: Start: 10-01-2024 End: 10-01-[address] [facility] Start: 10-01-2024 End: 10-01-2024 ambulatory Elias Epps Facility:[facility] Start: 07-09-2024 Non-patient / Non-visit Dr. Steven Muse MD -[facility] Start: 07-09-2024 End: 07-09-2024 Admission to same day surgery center Dr. Karen Muse MD -Endoscopy Work Phone: Start: 07-09-2024 End: 07-09-2024 ambulatory Karen Muse Facility:[facility] Start: 06-25-2024 End: 06-25-[address] Elias Epps MD -Outpatient Breast Imaging Work Phone: Start: 06-25-2024 End: 06-25-2024 ambulatory Elias Epps Facility:[facility] Start: 09-19-2023 End: 09-19-[address] Elias Epps Work Phone: [facility] Work Phone: Start: 09-19-2023 End: 09-19-[address] Elias Epps Work Phone: [facility]-Pulmonary Services/Neurology Work Phone: Start: 08-31-2023 End: 08-31-[address] Elias Epps Work Phone: [facility]-Pulmonary Medicine [facility] Work Phone: Start: 11-25-2022 End: 11-25-[address] Elias Epps Work Phone: [facility] Work Phone: Start: 11-25-2022 End: 11-25-[address] Elias Epps Work Phone: [facility]-Physical Therapy Start: 11-18-[address] Elias Epps Work Phone: [facility]-Physical Therapy Start: 11-16-2022 End: 11-16-[address] Elias Epps Work Phone: [facility] Work Phone: Start: 11-16-2022 End: 11-16-[address] Elias Epps Work Phone: [facility] Start: 09-13-2022 End: 09-13-[address] Elias Epps Work Phone: [facility] Start: 08-28-2022 End: 08-28-[address] Elias Epps Work Phone: [facility] Start: 08-13-2022 End: 08-13-2022 ambulatory Facility:[facility] Start: 08-13-2022 End: 08-13-2022 Patient encounter procedure Blake PARKER Work Phone: [facility] Comment on above: Sinobronchitis (Prim iliana Dx); Sore throat Start: 08-02-2022 End: 08-02-2022 ambulatory [facility] Work Phone: Start: 08-02-2022 End: 08-02-2022 Patient encounter procedure [facility] Start: 05-15-2022 End: 05-15-2022 ambulatory Facility:[facility] Start: 05-15-2022 End: 05-15-2022 Patient encounter procedure Cyndie Callejas JORGE ALBERTO Work Phone: [facility] Comment on above: Acute cough (Primary Dx) Procedures Date Procedure Procedure Detail Performing Clinician Start: 05-22-2025 Blood pressure withi n normal parameters - no follow-up required Saul Connors MD Work Phone: Start: 05-22-2025 BMI outside of adina l parameters - no follow-up plan/reason not given Saul Connors MD Work Phone: Start: 05-22-2025 Current tobacco non- user cad cap copd pv dm Saul Connors MD Work Phone: Start: 05-22-2025 Documentation of cur rent medications Saul Connors MD Work Phone: Start: 05-22-2025 Pain assessment docu mented as positive - follow-up documented Saul Connors MD Work Phone: Start: 05-22-2025 Physical therapy management Saul Connors MD Work Phone: Start: 04-03-2025 Blood pressure withi n normal parameters - no follow-up required Saul Connors MD Work Phone: Start: 04-03-2025 BMI documented as ab ove normal parameters - follow-up documented Saul Connors MD Work Phone: Start: 04-03-2025 Current tobacco non- user cad cap copd pv dm Saul Connors MD Work Phone: Start: 04-03-2025 Documentation of cur rent medications Saul Connors MD Work Phone: Start: 04-03-2025 Pain assessment docu mented as positive - follow-up documented Saul Connors MD Work Phone: Start: 04-01-2025 Blood pressure withi n normal parameters - no follow-up required Fredy Corbett MD Work Phone: Start: 04-01-2025 BMI outside of adina l parameters - no follow-up plan/reason not given Fredy Corbett MD Work Phone: Start: 04-01-2025 Current tobacco non- user cad cap copd pv dm Fredy Corbett MD Work Phone: Start: 04-01-2025 Documentation of cur rent medications Fredy Corbett MD Work Phone: Start: 04-01-2025 Pain assessment docu mented as negative - follow-up not required Fredy Corbett MD Work Phone: Start: 06-25-2024 Screening mammography Jennie Epps MD Work Phone: Start: 11-16-2022 CT of upper limb wit hout contrast Dr. Elias Epps Work Phone: Start: 08-31-2006 Mammography Cyndie kurtz APRN.CNP Work Phone: Plan of Treatment Date Care Activity Detail Author Start: 05-27-2025 End: 05-27-2025 [employer] Work Phone: Start: 05-22-2025 End: 05-22-2025 [employer] Work Phone: Start: 04-03-2025 End: 04-03-2025 [facility] Work Phone: Start: 04-03-2025 Mri spinal canal lum bar w/o contrast material [facility] Work Phone: Start: 04-03-2025 Radex spine lumbosac ral 2/3 views [facility] Work Phone: Start: 04-01-2025 Radex foot complete minimum 3 views [facility] Work Phone: Start: 07-09-2024 Colonoscopy w/biopsy single/multiple COLONOSCOPY AND BIOPSY [facility] Start: 07-09-2024 Patient discharge [facility] Start: 07-11-2022 ADVANCE DIRECTIVE DISCUSSION ADVANCE DIRECTIVE DISCUSSION [facility] Start: 07-11-2022 DEPRESSION ASSESSMENT DEPRESSION ASS ESSMENT [facility] Start: 03-30-2022 COVID-19 VACCINE (5 - Booster for Pfizer series) COVID-19 VACCINE (5 - Booster for Pfizer series) [facility] Start: 07-11-2021 ADVANCE DIRECTIVE DISCUSSION ADVANCE DIRECTIVE DISCUSSION [facility] Start: 07-11-2021 DEPRESSION ASSESSMENT DEPRESSION ASS ESSMENT [facility] Start: 09-21-2018 LIPID SCREEN LIPID SCREEN [facility] Start: 2018 BONE DENSITY BONE DENSITY [facility] Start: 2018 PNEUMOCOCCAL: 65+ (1 - PCV) PNEUMOCOCCAL: 65+ (1 - PCV) [facility] Start: 08-31-2007 Mammography MAMMOGRAM [facility] Start: 03-03-2007 DIABETES SCREEN DIABETES SCREEN [facility] Start: 2003 SHINGRIX VACCINE (1 of 2) SHINGRIX VACCINE (1 of 2) [facility] Start: 1998 COLOGUARD (FIT-DNA) COLOGUARD (FIT-D NA) [facility] Start: 1998 Colonoscopy COLONOSCOPY [facility] Start: 1998 COLORECTAL CANCER SCREENING COLORECTAL CANCER SCREENING [facility] Start: [address] COLONOGRAPHY [facility] Start: 1998 FECAL OCCULT BLOOD FECAL OCCULT BLOO D [facility] Start: 1998 SIGMOIDOSCOPY SIGMOIDOSCOPY [facility] Start: 1972 Urine microalbumin profile DTAP,TDAP,TD (1 - Tdap) [facility] Start: 1971 ANNUAL PCP TEAM FRONT DESK REPRESENTATIVE AISHA DISEASE VISIT ANNUAL PCP TEAM CHRONIC DISEASE VISIT [facility] Start: 1971 HEPATITIS C SCREENING HEPATITIS C [facility] Influenza virus A an d B RNA and SARS-CoV-2 (COVID-19) N gene panel - Respiratory specimen by DEVORAH with probe detection COVID WITH FLUA+B, ROUTINE Microbiology Routine Acute cough Ordered: 05/15/2022 [facility] Work Phone: Comment on above: Ordered: 05/15/2022 Patient referral [facility] Work Phone: End: 06-14-2023 Radiologic exam chest 2 views XR CHEST 2V FRONTAL/LAT Radiology Routine Acute cough 1 Occurrences starting 05/15/2022 until 06/14/2023 [facility] Work Phone: Comment on above: 1 Occurrences starti ng 05/15/2022 until 06/14/2023 STREP A MOLECULAR (POC) STREP A MOLECULAR (POC) Microbiology Routine Sore throat Ordered: 08/13/2022 [facility] Work Phone: Comment on above: Ordered: 08/13/2022 Payers Date Payer Category Payer Self-pay [id number] 2024 Private Health Insurance 101 [id number] 2021 Unknown MMO MMO [employer] [id number] 2021-Present [phone] [address] [place] [address] PPO [id number] 2014 Unknown [id number] Medicare MEDICARE PART A B [id number] Unknown [id number] 62 Unknown [id number] 62 Unknown [id number] 62 Unknown [id number] 62 Unknown [id number] 62 Unknown [id number] 62 Unknown [id number] 62 Unknown [id number] 62 Social History Date Type Detail Facility Start: 09-13-2013 End: 07-09-2024 Tobacco smoking status DEIS Never smoked tobacco [facility] Start: 09-13-2013 Tobacco use and exposure Smokeless tobacco non-user [facility] Start: 05-15-2022 Alcohol intake Current drinke r of alcohol (finding) [facility] Start: 1955 Sex Assigned At Not on file [facility] Start: 09-17-2020 End: 08-31-2023 Tobacco smoking status DEIS Unknown if ever smoked [facility] Start: 06-22-2019 Non-smoker [facility] Start: 1955 Sex Assigned At Female [facility] Start: 10-06-2024 Sex Female (finding) [facility] Start: 04-01-2025 End: 05-22-2025 social history reviewed E&M Done [employer] Work Phone: NEGATED: Highlighted row Not [facility] Medical Equipment Procedure Code Equipment Code Equipment [...] Goals Date Patient Goal Desired Activity /State Functional Status Date Assessment Result Facility 05-22-2025 Functional Status without [facility] Work Phone: 05-22-2025 dependent [facility] Work Phone: 04-03-2025 Functional Status without [facility] Work Phone: 04-03-2025 dependent [facility] Work Phone: 04-01-2025 Functional Status without [facility] Work Phone: 04-01-2025 dependent [facility] Work Phone: Mental Status Date Assessment Result Facility 04-01-2025 Cognitive Function house [facility] Work Phone: 07-09-2024 Cognitive function Voice/Name [facility] Work Phone: Clinical Notes 05-15-2022 to 07-09-2024 Note Date & Type Note Facility 07-09-2024 Evaluation note Diagnosis Onset Date Resolution Personal history of colonic polyps acute July 09 024 7:09am [facility] Work Phone: 1(547) 663-689212-30-2024 [facility] Medical Records Department [address] [place] [address] History Physical Exam 07/09/24 0721 MR#: [id number] Acct: [id number] Name: MELISSA FOSTER Rep #: [id number] : 1955 69 From: Karen Muse MD PCP: Dr. Elias Epps MD Status:[facility] Location: [place] [address] HPI - General General Date of Service: 07/09/24 HPI Narrative MELISSA FOSTER, is a 69 F who presents for screening colonoscopy. Patient last colonoscopy was 06/26/[address] Hernandez polyp was found. Recommended 5 years. Patient denies any chronic abdominal pain/nausea/vomiting/reflux. Patient has bowel movements daily/every other day denies any blood. 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 [place] [address] / REHABILITATION SERVICES DISCHARGE SUMMARY MR#: [id number] Acct: [id number] Name: MELISSA FOSTER Rep #: [id number] : 1955 67 From: Dell Hernandez PT, FITO, SCS, CSCS Referring Dr.: OUT OF TOWN DOCTOR Status: REG R Insurance: [facility] SELF PAY INSURANCE It has been my [...] please feel free to call me at [phone]. Thank you for the referral of thispatient. Sincerely, Dell Hernandez, PT, FITO, SCS, CSCS Balance/Gait/Functional tests - Balance/Special Test Scores Lower Extremity Functional Score: 45 <Electronically signed by Dell Hernandez PT, FITO, DACIA, CSCS> 12/13/22 1543 CC: Dr. Elias Epps MD; FREDY MACIAS ~ BC Signed [facility] Work Phone: 1(148) 593-263602-03-2023 NoteHNO ID: [id number] Author: KEITH Li Service: ? Author Type: Physician Child Welfare Social Worker Type: Progress Notes Filed: 08/13/2022 8:59 AM Note Text: Epic Downtime. See scanned document for documentation.[facility] 08-13-2022 History of Present illness Narrative* KEITH Li - 08/13/2022 8:59 AM EST Epic Downtime. See scanned document for documentation. [facility] Influenza virus A and B RNA and SARS-CoV-2 (COVID-19) N gene panel DEVORAH+probe (Resp)COVID 19 RESULT: SARS-CoV-2 (Agent of COVID-19) Not Detected by RT-PCR or equivalent method. fanny [id number]_Pecnr [employer] (SAMANTHA)_EUA This test was developed and its performance characteristics determined by [facility] [place]. This test has been authorized by FDA under an Emergency Use Authorization (EUA). This test has been validated in accordance with the FDA's Guidance Document Policy for DiagnosticsTesting in Laboratories Certified to Perform High Complexity Testing under CLIA prior to Emergency use Authorization for Coronavirus Disease 2019 during the Public Health Emergency issued on September 08, 2019. Test performed by [facility], [facility] [place], [address] [address]. INFLUENZA A PCR: Negative for Influenza A by RT-PCR INFLUENZA B PCR: Negative for Influenza B by [facility]PCRReg[facility] on above: Performed By: #### [id number] #### [facility] CLIA [id number] [address] [place] [address] OF [id number] NoteHNO ID: [id number] Author: Cyndie Callejas APRN.CARE TEAM COORDINATOR SCHEDULER Service: ? Author Type: Nurse Practitioner Type: [...] Report to ED if worsening Cyndie Callejas [facility]N.[facility] History of Present illness Narrative* Cyndie [...] not taking: Reported on 05/15/2022) FEXOFENADINE HCL (RTEVON ORAL) Take 1 tablet by mouth as [...] worsening Cyndie Callejas APRN.MEGAN [facility] [place]* Diagnosis Acute cough- Primary documented in [facility] noteNo assessment information availableWCleveland Clinic [facility] Work Phone: Evaluation note* Diagnosis Sinobronchitis- Primary Unspecified sinusitis (chronic) Sore throat Acute pharyngitis documented in this encounter [facility] note* Diagnosis Onset Date Resolution Status Acute bronchitis acute [facility] Work Phone: Evaluation note* Diagnosis Onset Date Resolution Status Non-productive cough acute [facility] Work Phone: Reason for referral (narrative)No reason for referral information availableWCleveland Clinic [facility] Work Phone: Chief Complaint and Reason [...] Malignant neoplasm Unknown brother Malignant neoplasm Unknown Family Member Condition Father Father Alzheimer Father Cancer Father Alive Full Brother Cancer Full Brother High blood pressure Full Brother Alive Full Brother Mother Alive Family Member Condition Father Father Alzheimer Father Cancer Father Alive Full Brother Cancer Full Brother High blood pressure Full Brother Alive Full Brother Mother Alive Family Member Condition Father Father Alzheimer Father Cancer Father Alive Full Brother Cancer Full Brother High blood pressure Full Brother Alive Full Brother Mother Alive Advance Directives Advance Directive Response Recorded Date/ Time Living Will No June 22 019 1:54pm Power of Support Services Manager No June 22, 2019 1:54pm Advance Directive Response Recorded Date/ Time Living Will No June 22 019 2:54pm Power of Support Services Manager No June 22, 2019 2:54pm Advance Directive Response Recorded Date/ Time Living Will No June 22 019 2:54pm Do you have a Healthcare Power of Support Services Manager? No June 22, 2019 2:54pm Living Will Yes July 06 11:22am Do you have a Healthcare Power of Support Services Manager? Yes July 06, 2024 11:22am Name of Medical Power of Support Services Manager SPOUSE July 06, 2024 11:22am Summary Purpose Additional Source Comments Source Comments (unrecognize d section and content) In the event this informatio n is protected by the Federal Confidentiality of Alcohol and Drug Abuse Patient Records regulations: The Federal rules restrict any use of the information to criminally investigate or prosecute any alcohol or drug abuse patient.[facility] the event this information is protected by the Federal Confidentiality of Alcohol and Drug Abuse Patient Records regulations: The Federal rules restrict any use of the information to criminally investigate or prosecute any alcohol or drug abuse patient.[facility] Reason for Visit (unrecogniz ed section and content) lower back pain, Test Result Reason Comments Sinus Problem Cough x 2 weeks Care Teams (unrecognized sec tion and content) Community Organization Aide Relationship Specialty Start Date End Date Pcp, [...] Elias Epps MD Primary Care Provider Active KEITH Nagel-C Attending Provider, Referring Pr ovider Active Team [...] December 10, 2024 End: December 10, 2024 Team Status: Active Member Role/Relationship Status Dates Dr. Elias Epps MD Primary Care Provider Active Team Status: Inactive Member Role/Relationship Status Dates Dr. Elias Epps MD Primary Care Provider Active Start: December 10, 2024 End: December 10, 2024 Dr. Elias Epps MD Attending Provider Active St art: December 10, 2024 End: December 10, 2024 Dr. Elias Epps MD Referring Provider Active St art: December 10, 2024 End: December 10, 2024 Team Status: Inactive Member Role/Relationship Status Dates Dr. Elias Epps MD Primary Care Provider Active Start: February 21, 2025 End: February 21, 2025 Dr. Elias Epps MD Attending Provider Active St art: February 21, 2025 End: February 21, 2025 Dr. Elias Epps MD Referring Provider Active St art: February 21, 2025 End: February 21, 2025 Goals (unrecognized section and content) Goals may be documented in a n alternate sectionGoals may be documented in an alternate sectionGoals may be documented in an alternate sectionGoals may be documented in an alternate sectionGoals may be documented in an alternate sectionGoals may be documented in an alternate section No Information Available No Information Available No Information Available INFORMATION SOURCE (unrecogn ized section and content) DATE CREATED AUTHOR 08/19/2022 [facility] DATE CREATED AUTHOR AUTHOR'S ORGANIZ ATION 05/22/2025 [facility] FOR RECORDS PERTAINING TO PATIENTS WHO [...] BE BASED ON THE PRIMARY CLINICAL RECORDS. [employer] provides no warranty or guarantee of the accuracy or completeness of information in this document.
== END | disposition home or self-care (01) ==
LOC: OPBD 13:57
PROVIDERS: PCP Family Medicine; Referring Provider Nurse Practitioner Family; Visit Provider Nurse Practitioner Family
DX: Z12.31 Encounter for screening mammogram for malignant neoplasm of breast (principal); Z78.0 Asymptomatic menopausal state
CPT/HCPCS: 77063; 77067; 77080